=== PATIENT | male | born 1990 | race Caucasian/White ===

== ENCOUNTER 2016-03-29 21:01 | Emergency (ER) | payer OTHER ==
[~2016-03-29] VITALS: Ht 180.3 cm; Wt 104.1 kg
[~2016-03-29 21:01] MED LIST: ASPEC81 PO; LISI-461 PO; PRLSR20 PO
[2016-03-29 21:06] VITALS: Ht 180.3 cm; Wt 104.1 kg
--- NOTE | 2016-03-29 21:39 | DIAGNOSTIC IMAGING REPORT ---
LEFT KNEE 3 VIEWS CLINICAL HISTORY: Left knee pain following fall. COMPARISON: Left knee radiographs May 11, 2013. FINDINGS: There are findings consistent with an ACL reconstruction. No acute fracture is identified. A moderate size left knee joint effusion is present. Joint spaces are preserved. There is mild osteophytosis within the 3 compartments of the left knee. IMPRESSION: 1. No acute fracture. 2. Findings consistent with ACL reconstruction. 3. Moderate-sized left knee joint effusion. 4. Mild tricompartmental osteophytosis of the left knee. Electronically signed by: Santhosh Steward M.D. 03/29/2016 9:38 PM Dictated Date/Time: 03/29/2016 9:36 PM
[2016-03-29] MEDS ORDERED: ASPI81TA28 PO (21:45)
[2016-03-29] MEDS ORDERED: IBUPROFEN 600 MG TAB PO STA (21:47)
[2016-03-29 22:27] VITALS: BP 155/99; PULSE 88; TEMP 36.4; O2SAT 95
--- NOTE | 2016-03-31 00:57 | EMERGENCY ROOM VISIT NOTE ---
ED Visit Note First contact with patient: 21:12 Chief Complaint: Left knee pain. History of Present Illness: Mr. Hart is a 25-year-old white male who is brought into the ED via wheelchair accompanied by his grandparents complaining of left medial knee pain. Historically patient and grandparents reports patient had left knee surgery to repair a meniscus and a anterior cruciate ligament injury 3 years ago. Since that time he has been doing well. Patient reports yesterday afternoon, just over 24 hours ago, patient reports he was chasing his dog down a small incline. He reports he saw and fell to the ground. He reports he had a hyperflexion injury of the knee at the time of the fall. Since that time he reports she's been having increasing left knee pain and swelling predominantly over the anterior medial aspect of the knee. Currently he describes his pain as an achy sensation with occasional throbbing. He rates his discomfort 4/10. The pain is nonradiating. Her pain worsens with palpation and flexion beyond 20-30. He has not identified any alleviating factors related to the pain. He has not had any medications for pain prior to arrival at the hospital. He denies any associated symptoms including hip pain, thigh pain, lower leg pain, ankle pain, leg weakness/ numbness/tingling. Review of Systems: As noted above in history of present illness. At least body systems were reviewed and found to be negative as noted above. Past Medical History: As previously noted, congenital heart defect, hypertension , multiple heart surgeries Current Medications: Medications Dose Route/Sig Max Daily Dose Days Date Category Aspirin Ec (Aspirin) 81 Mg Tab 81 Mg PO DAILY 03/29/16 Reported Prilosec (Omeprazole) 20 Mg Capcr 20 Mg PO BID 05/11/13 Reported Zestril (Lisinopril) 10 Mg Tab 10 Mg PO DAILY 05/11/13 Reported Allergies to Medications: Grandparents and patient denied. Social History: Patient is not employed; he feels safe in his home environment; he admits to tobacco and alcohol use. Physical Examination: Vital Signs: Date Time Temp Pulse Resp B/P Pulse Ox O2 Delivery O2 Flow Rate FiO2 03/29/16 22:27 36.4 88 16 155/99 95 03/29/16 22:16 88 16 155/99 95 Room Air 03/29/16 21:06 36.4 91 16 152/101 92 Room Air GENERAL: 25-year-old male in mild distress due to pain, nontoxic-appearing, afebrile and hemodynamically stable. NEUROLOGICAL: Awake, alert and oriented to person, place and time. Answering questions appropriately and following commands. SKIN: Warm, dry and pink. No soft tissue trauma noted. LEFT LOWER EXTREMITY: No gross bony deformity. No shortening or malrotation. No tenderness over the hip, thigh, lower leg, ankle or foot. Mild tenderness over the medial joint line. Positive ballottement test. Negative patellar apprehension test. Negative bounce test. Mild laxity of the medial collateral ligament. No laxity of the cruciate ligaments or lateral collateral ligament. Minimal tenderness over the posterior knee laterally over the hamstring tendonstructures. No tenderness over the patellar tendon. Decreased range of motion to approximately 20-30 of flexion. He does have full extension. Within the knee stabilize he does have full range of motion in flexion, extension of the toes and dorsiflexion and plantar flexion of the ankles against resistance. Throughout the foot the skin was warm and pink and capillary refill is brisk. He was able to distinguish light sensations through all dermatomes of the feet. ED Course: Patient is assessed as noted above. Patient was given 600 mg of ibuprofen by mouth for pain and ice for pain and swelling. Left Knee X-Rays: Were read by myself and the radiologist and shows no acute fractures or dislocations. Moderate size left knee joint effusion. Mild tricompartmental osteophytosis and findings consistent with previous anterior cruciate ligament reconstruction. Patient was placed in a knee immobilizer and on nonweightbearing crutches. Patient and grandparents were educated about rosaura's findings and instructed on his treatment plan; they verbalizes understanding and agreement with this plan. Clinical Impression: Left medial collateral ligament strain. Joint effusion. Status post fall. Disposition: Patient discharged home in stable condition accompanied by his grandparents; prior to departure he was reassessed and subjectively reported he was feeling better and rated his discomfort 4/10. Plan: Comfort measures were discussed with the patient including rest, ice, elevation and alternating ibuprofen and acetaminophen as needed for pain. Patient was encouraged to use the knee immobilizer and nonweightbearing crutches for 3-6 days or until pain free. Patient was encouraged to follow-up with digital specialist if no better in 6 -7 days. Patient was encouraged return the ED for worsening/uncontrolled pain, uncontrolled swelling or any new/concerning symptoms.
== END 2016-03-29 22:28 | disposition home or self-care (01) ==
LOC: C.EDB 21:04 → C.EDD 22:28
DX: S83.412A Sprain of medial collateral ligament of left knee, initial encounter (principal); M25.462 Effusion, left knee; W19.XXXA Unspecified fall, initial encounter; I10 Essential (primary) hypertension; Z79.82 Long term (current) use of aspirin

== ENCOUNTER 2016-07-28 14:29 | Emergency (ER) | payer OTHER ==
[~2016-07-28] VITALS: Ht 180.3 cm; Wt 103.0 kg
[~2016-07-28 14:29] MED LIST changes: -ASPEC81 PO; +ASPI81TA28 PO
[2016-07-28 14:32] VITALS: TEMP 36.7; Ht 180.3 cm; Wt 103.0 kg
--- NOTE | 2016-07-28 14:52 | DIAGNOSTIC IMAGING REPORT ---
LEFT ANKLE MIN 3 VIEWS ROUTINE CLINICAL HISTORY: L ankle pain trauma COMPARISON: None. DISCUSSION: Considerable soft tissue edema over the lateral to lesser extent medial aspect of the ankle. Small bony avulsion from the anterior calcaneus. The ankle mortise is aligned anatomically. IMPRESSION: Small bony avulsion from the anterolateral calcaneus. Soft tissue edema. Electronically signed by: Castro Armendariz M.D. 07/28/2016 2:50 PM Dictated Date/Time: 07/28/2016 2:49 PM
[2016-07-28 15:25] VITALS: BP 130/81; PULSE 84; O2SAT 99
--- NOTE | 2016-07-28 16:30 | EMERGENCY ROOM VISIT NOTE ---
ED Visit Note First contact with patient: 14:32 Chief Complaint: Left ankle pain. History of Present Illness: Mr. Valencia is a 25-year-old white male who ambulates into the ED walking on his left toes complaining of left lateral ankle pain. Patient reports yesterday, approximately 26 hours ago, he was taking garbage out the trash and twisted and injured his left ankle. From his description this appears to be an inversion injury. He reports at the time of the injury he felt a popping sensation. Since the injury he has been having pain and he has noted increased swelling and ecchymosis over the lateral aspect of the left ankle. He describes the pain as a sharp sensation. He rates his discomfort 8/ 10. The pain is nonradiating. Pain worsens with all movements of the ankle, heel toe ambulation and palpation. He has not identified any alleviating factors related to the pain. He reports he took 1000 mg of ibuprofen prior to arrival at the hospital without relief of his discomfort. Associated with his pain he reports he has a tingling sensation in his toes and his girlfriend reports his toes were blue this morning but that has resolved. He denies any associated hip pain, knee pain, lower leg pain, medial ankle pain , foot pain, foot weakness. Additionally he denies any previous significant injuries or surgeries to the left ankle or foot. Review of Systems: As noted above in history of present illness. Past Medical History: Congenital heart defect with open-heart surgeries, unspecified knee surgery. Current Medications: Lisinopril, Prilosec, aspirin. Allergies to Medications: Patient denies. Social History: Patient is currently employed; he feels safe in his home environment; he admits to tobacco and alcohol use. Physical Examination: Vital Signs: Date Time Temp Pulse Resp B/P (MAP) Pulse Ox O2 Delivery O2 Flow Rate FiO2 07/28/16 15:25 84 18 130/81 99 Room Air 07/28/16 14:32 36.7 74 18 134/84 94 Room Air GENERAL: 25-year-old male in mild distress due to pain, nontoxic-appearing, afebrile and hemodynamically stable. NEUROLOGICAL: Awake, alert and oriented to person, place and time. Answering questions appropriately and following commands. SKIN: Warm, dry and pink. No soft tissue trauma noted. LEFT LOWER EXTREMITY: No gross bony deformity. No tenderness in the hip, knee or lower leg. Moderate tenderness diffusely throughout the lateral aspect of the ankle overall ligamentous structures and bony structures. Additionally in this area there is ecchymosis and swelling down to the calcaneus. Because of his level of discomfort I was not able to stress the ligamentous structures. I did not appreciate any bony deformity or crepitus. Throughout the feet the skin was warm and pink and capillary refill is brisk. With pain he was able to dorsiflex and plantarflex the ankle. Without pain he was able to flex and extend all toes. ED Course: Patient is assessed as noted above. Left Ankle X-Rays: Were read by myself and the radiologist showing a small bony avulsion from the anterior lateral calcaneus with moderate swelling. Ankle mortise joint was intact. Patient's medical records, past medical history, medications and allergies were reviewed by myself. Patient was warned about using too much ibuprofen. Patient was placed in a gel splint and on nonweightbearing crutches. Patient was encouraged to follow-up with [facility] for follow-up care and treatment. Patient was educated about today's findings and instructed on his treatment plan ; he verbalizes understanding and agreement with this plan. Clinical Impression: Avulsion fracture left calcaneus. Decision-Making: Initially my differential diagnosis I considered fracture, strain, sprain, contusion and other causes. Disposition: Patient discharged home in stable condition accompanied by his girlfriend; prior to departure he was reassessed and subjectively reported he was feeling the same. Plan: Comfort measures including rest, ice, elevation, splint and crutch use and ibuprofen and Tylenol were discussed with the patient. Patient reports he was a patient with [facility]; he was encouraged to follow-up for evaluation. Patient was signed off work for 7 days and orthopedic follow-up. Patient was encouraged return the ED for worsening/uncontrolled pain, uncontrolled swelling, foot weakness/numbness/tingling or any new/concerning symptoms.
== END 2016-07-28 15:31 | disposition home or self-care (01) ==
LOC: C.EDB 14:30 → C.EDD 15:31
DX: S92.022A Displaced fracture of anterior process of left calcaneus, initial encounter for closed fracture (principal); X50.1XXA Overexertion from prolonged static or awkward postures, initial encounter; Y93.89 Activity, other specified; Y99.8 Other external cause status; Z72.0 Tobacco use; Z98.890 Other specified postprocedural states; Z79.82 Long term (current) use of aspirin

== ENCOUNTER → 2016-11-27 | Outpatient (CLI) | payer OTHER ==
--- NOTE | 2016-11-27 18:41 | DIAGNOSTIC IMAGING REPORT ---
LEFT KNEE 3 VIEWS CLINICAL HISTORY: Left knee pain. No reported history of trauma. FINDINGS: AP, crosstable lateral, and sunrise views of the left knee are compared to study dated 03/29/2016. The skeletal structures appear osteopenic. No fracture is seen. Postoperative changes are consistent with previous ACL repair. There is mild and age advanced tricompartmental degenerative joint space narrowing. There are marginal osteophytes and patellar enthesophytes. A small joint effusion is identified. Prepatellar soft tissue swelling is observed. IMPRESSION: 1. Joint effusion and soft tissue swelling. No acute bony abnormality is identified. 2. Osteopenia, age advanced arthritic change, and postoperative change from ACL repair as above. Electronically signed by: Tong Godinez M.D. 11/27/2016 6:39 PM Dictated Date/Time: 11/27/2016 6:38 PM
== END | disposition home or self-care (01) ==
LOC: C.RAD 18:14
PROVIDERS: ATTEND Physician Assistant Medical
DX: M25.562 Pain in left knee (principal); M25.462 Effusion, left knee; M79.89 Other specified soft tissue disorders; M85.862 Other specified disorders of bone density and structure, left lower leg; Z98.890 Other specified postprocedural states

== ENCOUNTER 2024-09-01 00:44 | Inpatient (IN) ==
[2024-09-01 02:39] LABS: Alanine Aminotransferase 14.0 U/L (7-52); Albumin Globulin Ratio 1.3 (0.9-2); Alkaline Phosphatase 84.0 U/L (34-104); Anion Gap 9.0 (3-11); Bilirubin,Total 2.5 mg/dl (0.2-1.0); Blood Urea Nitrogen 51.0 mg/dl (6-23); Calcium 9.2 mg/dl (8.6-10.3); Carbon Dioxide 20.0 mmol/L (21-32); Chloride 104.0 mmol/L (98-107); Creatinine Clr Calc Pharmacy 63.8 ml/min; Globulin 3.2 gm/dl (2.5-4.0); Glucose 115.0 mg/dl (70-99(Fasting)); Magnesium 2.3 mg/dl (1.7-2.4); Potassium 5.2 mmol/L (3.5-5.1); Sodium 133.0 mmol/L (136-145); Total Protein 7.3 gm/dl (6.0-8.3)
[2024-09-01] MEDS: SODIUM CHLORIDE 0.9% 500 ML IV ONE ×2 (02:39→03:07)
--- NOTE | 2024-09-01 02:47 | XRay Report ---
EXAM: XR knee LT 1 or 2V routine CLINICAL HISTORY: trauma. TECHNIQUE: X-ray images of the left knee were obtained in anteroposterior (AP) and lateral projections. COMPARISON: 03/29/2016 and 11/27/2016. FINDINGS: Bone Structure: Bone alignment is preserved. No acute fractures or dislocations identified. Radiolucent areas with surrounding sclerosis are noted in the distal femur and proximal tibia, likely post-intervention changes related to prior orthopedic hardware placement. A metallic foreign body is seen in the lateral aspect of the distal femur, stable in appearance. Correlation with surgical history is recommended. Joint Spaces: Mild joint space narrowing is observed in both the medial and lateral compartments, suggestive of early degenerative changes. Articular Surfaces: Few small marginal osteophytes are noted, with tibial plateau spiking present. Articular surfaces show early signs of degeneration but remain largely preserved. Patella: The patella is normally aligned. Patellar osteophytes are present, indicating early patellofemoral joint degeneration. Soft Tissues: Mild subcutaneous soft tissue edema is noted, predominantly in the anterior aspect. No soft tissue calcifications or foreign bodies apart from the aforementioned metallic object. Additional Findings: Suggestion of mild joint effusion is present. IMPRESSION: 1. No acute fractures or dislocations. 2. Mild joint effusion and anterior soft tissue edema. New findings. 3. Early degenerative changes of knee joint. Unchanged. 4. Stable likely post-surgical radiolucent areas with surrounding sclerosis in the distal femur and proximal tibia, and an unchanged metallic foreign body in the lateral distal femur; correlate with prior surgical history. Disclaimer: A subtle bone abnormality or fracture may not be readily apparent on X-rays, thus clinical correlation and further imaging including follow-up CT, MRI, or follow-up X-rays are advised as needed. Electronically signed by Paul Greenwood 09-01-2024 02:47 AM
[2024-09-01 02:54] LABS: Thyroid Stimulating Hormone 7.78 uIu/ml (0.300-4.500)
--- NOTE | 2024-09-01 03:07 | Emergency Department Note ---
Impression & Plan Laceration of knee, left, Atrial fibrillation with rapid ventricular response, Fall, Abrasion of right shoulder ED Provider Note ED Provider Note NAME: CHRISTEN RODRIGEZ AGE:34 SEX: Male : 1990 ARRIVES VIA: private vehicle INFORMANT: Patient ED PROVIDER(s): Stephanie Ge DO CHIEF COMPLAINT: left knee laceration HPI: This is a 34-year-old male presents emerged part due to concern for a left knee laceration after he accidentally tripped and fell going up the steps. He stated his knee struck the edge of the step. He states he otherwise was not injured and was able to get up with assistance. He had a large amount of bleeding which family tried to place a dressing on. Patient states he does take anticoagulation medication due to history of heart problems. Family at bedside states he does have atrial fibrillation. In triage patient noted to have tachycardia as well as hypoxia. EKG was performed and did show A-fib with RVR. Patient states he has had this previously but does not know if he is on it chronically or intermittently and states he cannot tell if he is in it or not. He denies any chest pain, palpitations, shortness of breath, or cough. He states he is taking all of his medications as prescribed, denies any recent medication changes. Family states he has previously needed his heart shocked due to an abnormal rhythm, the last episode of this was 1 month ago and felt to be related to significant alcohol intoxication. Patient denies any alcohol ingestion since that time. 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 Patient follows with cardiology down in [place]. PAST MEDICAL HISTORY:See Below PAST SURGICAL HISTORY:See Below FAMILY HISTORY:See Below SOCIAL HISTORY:See Below HOME MEDICATIONS:See Below ALLERGIES:See Below VITALS:See Below PHYSICAL EXAMINATION: GENERAL: alert, unwell appearing, well nourished, no distress, non-toxic, BMI 36 EYE EXAM: normal conjunctiva, PERRL and EOM's grossly intact OROPHARYNX: no exudate, no erythema, lips, buccal mucosa, and tongue normal and mucous membranes are moist NECK: supple, no nuchal rigidity, no adenopathy, non-tender LUNGS: Clear to auscultation. Normal chest wall mechanics, no w/r/r HEART: no murmurs, S1 normal and S2 normal ABDOMEN: abdomen soft, non-tender, normo-active bowel sounds, no masses, no rebound or guarding. SKIN: no rashes, petechiae, orbruising; bronze skin appearance which family states is normal for him UPPER EXTREMITIES: upper extremities are grossly normal. FROM, nml pulses b/l. LOWER EXTREMITIES: No pitting edema. FROM, nml pulses b/l. NEURO EXAM: Normal sensorium, cranial nerves II-XII grossly intact, normal speech, no facial droop,nogross weakness of arms, no gross weakness of legs. Gross sensation intact. No ataxia. Vital Signs: reviewed and remarkable Differential Diagnosis: laceration, fracture, ligamentous injury, septic arthritis MEDICAL DECISION MAKING: THis is a 34 yo male with complicated PMHx who present tonight with concern for a fall going up the steps striking his left knee. Family concerned by amount of bleeding as patient is anticoagulated due to cardiac hx. He was noted to be tachycardic and hypoxic on arrival and was immediately placed in a patient room. Labs drawn and sent, IV established, EKG and xrays performed and interpreted at bedside, and patient placed on telemetry. Patient and initial family with difficulty recalling history, roxana cardiac. While awaiting the arrival of patient's mother we did attempt to find records in [facility] with help from case mgmt. Patient denied pain accept if area of left knee injury manipulated and he remained in a rapid a.fib with borderline BP. He denied palpitations, chest pain, or dyspnea. He had already been placed on oxygen via NC but nursing staff with improvement. INitial knee xrays negative, however given patient's body habitus, appearance of the injury and concern for occult fracture or joint involvement he was sent for CT knee. Patient's mother eventually arrived and was able to provide additional hx. Patient with prior similar episodes requiring cardioversion but previously were secondary to etoh use. Patient denies any recent etoh use and mother confirms stating he has been home and lives with her. Labs noted GENA and borderline hyperkalemia. Mother suspect decreased water intake. She confirms he is taking all his meds as prescribed. Last oral intake today was 2 pm. I had a lengthy discussion with peds cards at [facility] who manage him. Following this I discussed their recommendation to cardiovert out of a.fib with the patient and with his mother. The both verbalized understanding and were in agreement. Patient sedated by me and cardioversion performed with assistance from Margaret Bolton PA-C. During sedation preparations, abrasion noted to right posterior shoulder. Patient then admitted when he fell up the steps, he then turned and slid back down following the knee injury. Patient then in NSR. His oxygen was able to be titrated down. He was sent for additional CT imaging given additional exam findings and further explanation regarding the fall. He had received cautious IVF given the GENA and concern for dehydration. Following his recovery from the procedure, I began to prep the wound for repair. Area anesthetized using lido with epi with good success and area copious irrigated. Unfortunately I then had to leave the room to attend to a more critical patient. Wound repaired at bedside by Betty Torrez NP. Case discussed via tiger text with [facility] Patient and mother updated on plan and were in agreement. Consultation(s): 0420: Extensive discussion with Dr. Kendall, cardiology at [facility] approx 45 long. Recommends cardioversion and 24 hr observation. 0558: DIscussed with Dr. Jurado via Aspers Text. 0632: [facility] for additional evaluation and mgmt. ER Treatment Provided: See below Diagnostics Interpreted By Me: -ECG: A-fib at a rate of 161, leftward axis, normal intervals, nonspecific ST/T wave changes -Cardiac Monitoring: An order was placed for continuous cardiac monitoring. The monitor shows a rate of 166 with a.fib rhythm. -Laboratory studies: As stated above and show below. -Imaging studies: X-ray Chest: A single view study of the chest was reviewed and was negative for cardiomegaly, focal infiltrate, effusion, pulmonary edema, or wide mediastinum. xr knee: no fx/dislocation CT head: no ICH Triage Nursing Note Reviewed Prior/Outside Records Reviewed -cardiology office visit from April 14, 2024 reviewed Procedures: Procedural Sedation Indication cardioversion. Total time: 17 minutes. Written consent was obtained after the risks and benefits were explained to the patient and mother, including, but not limited to aspiration, allergic reaction, breathing difficulties, cardiac complications, vomiting, pain, event recall, bleeding, and/or infection. Pre-sedation examination and paperwork completed. The patient was on 100% oxygen via NRB prior to the procedure. Continous end tidal CO2 monitoring, pulse oximetry, and cardiac monitoring were utilized. Suction, airway equipment, medications, respiratory equipment, and appropriate personnel were prepared prior to the initiation of the procedure. A time out was taken. Sedation was achieved utilizing 17 mg of etomidate. After I observed the patient had reached the appropriate level of sedation the main procedure was performed without complication. Sedation was discontinued and the monitoring continued. The patient recovered quickly from the effects of the medication without complication or adverse event. Critical Care: Critical care of 60 min performed to assess and manage high likelihood of life-threatening dysrhythmia, involving labs and imaging performed with assessment to evaluate tachycardia diagnosis with frequent reassessment. This time includes bedside time, treatment discussions with patient/family/consultants, documentation time and excludes procedure time. Past Med/Surg History Problem List (Updated 09/02/24 @ 21:12 by Stephanie Ge DO) Abrasion of right shoulder (Acute) Fall (Acute) Fall GENA (acute kidney injury) Status post Fontan procedure Congenital heart disease Atrial fibrillation with rapid ventricular response (Acute) Rapid atrial fibrillation Laceration of knee, left (Acute) Foot pain, right (Acute) Right ankle sprain (Acute) Right ankle sprain (Acute) Left knee injury (Acute) Tricuspid atresia Left knee injury (Acute) Cellulitis Social History Smoking Status: Current every day smoker Tobacco Type: Smokeless Tobacco (Dip or Chew) Hx Alcohol Use: No Hx Substance Use: No Preferred Language: Turkish [employer] Required: No Beliefs That Will Affect Care: None Current Living Situation: Parent Other Information That Helps Us Care for You: No Feels Safe at Home: Yes Safety Concerns: Feels Safe At This Time Assistive Devices: None Allergies Allergies Allergy/AdvReac Type Severity Reaction Status Date / Time acetaminophen AdvReac Unknown AVOIDS D/T Verified 09/01/24 02:23 CIRRHOSIS OF LIVER Home Meds Home Medications Medication Instructions Recorded Confirmed apixaban 5 mg tablet (Eliquis) 5 mg PO BID 09/01/24 09/01/24 betamethasone dipropionate 0.05 % 1 applic topical DIRECTED 09/01/24 09/01/24 topical cream carvedilol 6.25 mg tablet 6.25 mg PO BID 09/01/24 09/01/24 furosemide 40 mg tablet 40 mg PO DAILY 09/01/24 09/01/24 lisinopril 20 mg tablet 20 mg PO DAILY 09/01/24 09/01/24 montelukast 10 mg tablet 10 mg PO DAILY 09/01/24 09/01/24 omeprazole 20 mg capsule,delayed 20 mg PO BID 09/01/24 09/01/24 release sertraline 100 mg tablet 100 mg PO DAILY 09/01/24 09/01/24 trazodone 50 mg tablet 50 mg PO HS 09/01/24 09/01/24 Results & Data (ED) Vital Signs Vital Signs - 24 hr 09/01/24 00:50 09/01/24 01:02 09/01/24 01:03 Temperature 35.9 C L Temperature Source Temporal Artery Scan Pulse Rate 154 H 168 H 148 H Pulse Rate [Apical] Pulse Rate from SpO2 Sensor Pulse Rhythm Regular Pulse Rhythm [Apical] Pulse Strength Normal Pulse Strength [Apical] Respiratory Rate 16 24 Respiratory Effort / Characteristics Non-Labored Spontaneous Respiratory Depth Normal Respiratory Pattern Regular Blood Pressure 106/72 109/85 Blood Pressure [Left Arm] Blood Pressure Mean 83 96 Blood Pressure Mean [Left Arm] Blood Pressure Position Lying Blood Pressure Position [Left Arm] Pulse Oximetry 85 L 90 Oxygen Delivery Method Room Air Nasal Cannula Oxygen Flow Rate 4 Sepsis New/Unexplained Change in Mental Status No Sepsis Action Taken by Nursing No Action Required End Tidal CO2 (18-54mmHg) 09/01/24 01:30 09/01/24 02:00 09/01/24 02:43 Temperature Temperature Source Pulse Rate 164 H 160 H 160 H Pulse Rate [Apical] Pulse Rate from SpO2 Sensor 158 H Pulse Rhythm Pulse Rhythm [Apical] Pulse Strength Pulse Strength [Apical] Respiratory Rate 30 H 20 20 Respiratory Effort / Characteristics Respiratory Depth Respiratory Pattern Blood Pressure 100/70 103/79 90/73 L Blood Pressure [Left Arm] Blood Pressure Mean 80 96 81 Blood Pressure Mean [Left Arm] Blood Pressure Position Blood Pressure Position [Left Arm] Pulse Oximetry 90 91 91 Oxygen Delivery Method Nasal Cannula Nasal Cannula Oxygen Flow Rate 4 4 Sepsis New/Unexplained Change in Mental Status Sepsis Action Taken by Nursing End Tidal CO2 (18-54mmHg) 09/01/24 02:55 09/01/24 03:00 09/01/24 03:17 Temperature Temperature Source Pulse Rate 156 H 164 H Pulse Rate [Apical] 160 H Pulse Rate from SpO2 Sensor Pulse Rhythm Pulse Rhythm [Apical] Irregular Pulse Strength Pulse Strength [Apical] Normal Respiratory Rate 20 20 20 Respiratory Effort / Characteristics Non-Labored Spontaneous Respiratory Depth Normal Respiratory Pattern Regular Blood Pressure 97/70 L 89/69 L Blood Pressure [Left Arm] 92/66 L Blood Pressure Mean 79 85 Blood Pressure Mean [Left Arm] 74 Blood Pressure Position Blood Pressure Position [Left Arm] Pulse Oximetry 94 93 93 Oxygen Delivery Method Nasal Cannula Nasal Cannula Room Air Oxygen Flow Rate 4 4 Sepsis New/Unexplained Change in Mental Status Sepsis Action Taken by Nursing End Tidal CO2 (18-54mmHg) 09/01/24 03:17 09/01/24 03:25 09/01/24 03:30 Temperature Temperature Source Pulse Rate 152 H 156 H 162 H Pulse Rate [Apical] Pulse Rate from SpO2 Sensor Pulse Rhythm Pulse Rhythm [Apical] Pulse Strength Pulse Strength [Apical] Respiratory Rate 19 19 20 Respiratory Effort / Characteristics Respiratory Depth Respiratory Pattern Blood Pressure 92/66 L 106/68 94/66 L Blood Pressure [Left Arm] Blood Pressure Mean 77 72 83 Blood Pressure Mean [Left Arm] Blood Pressure Position Blood Pressure Position [Left Arm] Pulse Oximetry 92 93 93 Oxygen Delivery Method Nasal Cannula Nasal Cannula Nasal Cannula Oxygen Flow Rate 4 4 4 Sepsis New/Unexplained Change in Mental Status Sepsis Action Taken by Nursing End Tidal CO2 (18-54mmHg) 09/01/24 03:40 09/01/24 03:51 09/01/24 04:00 Temperature Temperature Source Pulse Rate 151 H Pulse Rate [Apical] 160 H 158 H Pulse Rate from SpO2 Sensor Pulse Rhythm Pulse Rhythm [Apical] Irregular Irregular Pulse Strength Pulse Strength [Apical] Normal Normal Respiratory Rate 22 21 18 Respiratory Effort / Characteristics Non-Labored Spontaneous Non-Labored Spontaneous Respiratory Depth Normal Normal Respiratory Pattern Regular Regular Blood Pressure 89/69 L Blood Pressure [Left Arm] 84/65 L 84/66 L Blood Pressure Mean 72 Blood Pressure Mean [Left Arm] 71 72 Blood Pressure Position Blood Pressure Position [Left Arm] Lying Pulse Oximetry 93 93 93 Oxygen Delivery Method Nasal Cannula Nasal Cannula Room Air Oxygen Flow Rate 4 4 Sepsis New/Unexplained Change in Mental Status Sepsis Action Taken by Nursing End Tidal CO2 (18-54mmHg) 09/01/24 04:11 09/01/24 04:20 09/01/24 04:40 Temperature Temperature Source Pulse Rate Pulse Rate [Apical] 151 H 159 H 168 H Pulse Rate from SpO2 Sensor Pulse Rhythm Pulse Rhythm [Apical] Irregular Irregular Irregular Pulse Strength Pulse Strength [Apical] Normal Normal Normal Respiratory Rate 21 18 22 Respiratory Effort / Characteristics Non-Labored Spontaneous Non-Labored Spontaneous Non-Labored Spontaneous Respiratory Depth Normal Normal Normal Respiratory Pattern Regular Regular Regular Blood Pressure Blood Pressure [Left Arm] 89/66 L 92/68 L 91/68 L Blood Pressure Mean Blood Pressure Mean [Left Arm] 73 76 75 Blood Pressure Position Blood Pressure Position [Left Arm] Pulse Oximetry 92 91 94 Oxygen Delivery Method Nasal Cannula Nasal Cannula Nasal Cannula Oxygen Flow Rate 4 4 4 Sepsis New/Unexplained Change in Mental Status Sepsis Action Taken by Nursing End Tidal CO2 (18-54mmHg) 09/01/24 04:50 09/01/24 05:00 09/01/24 05:03 Temperature Temperature Source Pulse Rate 152 H 164 H 150 H Pulse Rate [Apical] Pulse Rate from SpO2 Sensor Pulse Rhythm Pulse Rhythm [Apical] Pulse Strength Pulse Strength [Apical] Respiratory Rate 20 18 Respiratory Effort / Characteristics Respiratory Depth Respiratory Pattern Blood Pressure 116/87 95/73 L Blood Pressure [Left Arm] Blood Pressure Mean 88 80 Blood Pressure Mean [Left Arm] Blood Pressure Position Blood Pressure Position [Left Arm] Pulse Oximetry 93 94 Oxygen Delivery Method Nasal Cannula Nasal Cannula Oxygen Flow Rate 4 4 Sepsis New/Unexplained Change in Mental Status Sepsis Action Taken by Nursing End Tidal CO2 (18-54mmHg) 09/01/24 05:18 09/01/24 05:25 09/01/24 05:30 Temperature Temperature Source Pulse Rate 140 H 167 H Pulse Rate [Apical] Pulse Rate from SpO2 Sensor Pulse Rhythm Pulse Rhythm [Apical] Pulse Strength Pulse Strength [Apical] Respiratory Rate 18 16 Respiratory Effort / Characteristics Respiratory Depth Respiratory Pattern Blood Pressure Blood Pressure [Left Arm] 110/70 98/78 L Blood Pressure Mean Blood Pressure Mean [Left Arm] Blood Pressure Position Blood Pressure Position [Left Arm] Pulse Oximetry 95 98 96 Oxygen Delivery Method Non-rebreather Non-rebreather Non-rebreather Oxygen Flow Rate 15 15 15 Sepsis New/Unexplained Change in Mental Status Sepsis Action Taken by Nursing End Tidal CO2 (18-54mmHg) 29 28 09/01/24 05:32 09/01/24 05:35 09/01/24 05:40 Temperature Temperature Source Pulse Rate 67 72 74 Pulse Rate [Apical] Pulse Rate from SpO2 Sensor Pulse Rhythm Pulse Rhythm [Apical] Pulse Strength Pulse Strength [Apical] Respiratory Rate 16 20 Respiratory Effort / Characteristics Respiratory Depth Respiratory Pattern Blood Pressure Blood Pressure [Left Arm] 94/75 L 106/58 L Blood Pressure Mean Blood Pressure Mean [Left Arm] Blood Pressure Position Blood Pressure Position [Left Arm] Pulse Oximetry 95 95 Oxygen Delivery Method Non-rebreather Non-rebreather Oxygen Flow Rate 15 15 Sepsis New/Unexplained Change in Mental Status Sepsis Action Taken by Nursing End Tidal CO2 (18-54mmHg) 27 25 09/01/24 05:45 09/01/24 05:50 09/01/24 05:55 Temperature Temperature Source Pulse Rate 83 85 90 Pulse Rate [Apical] Pulse Rate from SpO2 Sensor Pulse Rhythm Pulse Rhythm [Apical] Pulse Strength Pulse Strength [Apical] Respiratory Rate 20 20 20 Respiratory Effort / Characteristics Respiratory Depth Respiratory Pattern Blood Pressure Blood Pressure [Left Arm] 101/65 99/65 L 96/70 L Blood Pressure Mean Blood Pressure Mean [Left Arm] Blood Pressure Position Blood Pressure Position [Left Arm] Pulse Oximetry 96 98 95 Oxygen Delivery Method Non-rebreather Nasal Cannula Nasal Cannula Oxygen Flow Rate 15 4 4 Sepsis New/Unexplained Change in Mental Status Sepsis Action Taken by Nursing End Tidal CO2 (18-54mmHg) 27 29 29 09/01/24 06:00 09/01/24 06:04 09/01/24 06:30 Temperature Temperature Source Pulse Rate 89 95 H 92 H Pulse Rate [Apical] Pulse Rate from SpO2 Sensor 88 Pulse Rhythm Pulse Rhythm [Apical] Pulse Strength Pulse Strength [Apical] Respiratory Rate 18 18 20 Respiratory Effort / Characteristics Respiratory Depth Respiratory Pattern Blood Pressure 95/60 L 99/71 L 95/68 L Blood Pressure [Left Arm] Blood Pressure Mean 71 75 73 Blood Pressure Mean [Left Arm] Blood Pressure Position Blood Pressure Position [Left Arm] Pulse Oximetry 94 94 95 Oxygen Delivery Method Nasal Cannula Room Air Oxygen Flow Rate 4 4 Sepsis New/Unexplained Change in Mental Status Sepsis Action Taken by Nursing End Tidal CO2 (18-54mmHg) 09/01/24 06:45 09/01/24 06:48 09/01/24 06:51 Temperature Temperature Source Pulse Rate 93 H 100 H Pulse Rate [Apical] Pulse Rate from SpO2 Sensor 95 H 96 H Pulse Rhythm Pulse Rhythm [Apical] Pulse Strength Pulse Strength [Apical] Respiratory Rate Respiratory Effort / Characteristics Respiratory Depth Respiratory Pattern Blood Pressure 86/67 L Blood Pressure [Left Arm] Blood Pressure Mean 73 Blood Pressure Mean [Left Arm] Blood Pressure Position Blood Pressure Position [Left Arm] Pulse Oximetry 95 Oxygen Delivery Method Nasal Cannula Oxygen Flow Rate 4 Sepsis New/Unexplained Change in Mental Status Sepsis Action Taken by Nursing End Tidal CO2 (18-54mmHg) 09/01/24 06:53 09/01/24 06:59 09/01/24 07:00 Temperature Temperature Source Pulse Rate Pulse Rate [Apical] Pulse Rate from SpO2 Sensor Pulse Rhythm Pulse Rhythm [Apical] Pulse Strength Pulse Strength [Apical] Respiratory Rate Respiratory Effort / Characteristics Respiratory Depth Respiratory Pattern Blood Pressure 88/65 L 100/72 103/74 Blood Pressure [Left Arm] Blood Pressure Mean 76 82 79 Blood Pressure Mean [Left Arm] Blood Pressure Position Blood Pressure Position [Left Arm] Pulse Oximetry Oxygen Delivery Method Oxygen Flow Rate Sepsis New/Unexplained Change in Mental Status Sepsis Action Taken by Nursing End Tidal CO2 (18-54mmHg) Laboratory Data 09/02/24 05:27 09/02/24 10:58 Lab Results 09/01/24 Range/Units 01:10 WBC 5.90 (4.8-10.8) K/ul RBC 4.47 L (4.70-6.10) M/uL Hgb 14.4 (14.0-18.0) g/dl Hct 44.2 (42.0-52.0) % MCV 98.9 (80.0-100.0) fL MCH 32.2 (25.0-34.0) pg MCHC 32.6 (32.0-36.0) g/dL RDW Std Deviation 54.9 H (36.4-46.3) fL RDW Coeff of Mary 15.1 H (11.5-14.5) % Plt Count 89 L (130-400) K/uL MPV 14.9 H (9.4-12.4) fL Immature Gran % (Auto) 0.3 % Neut % (Auto) 67.0 % Lymph % (Auto) 17.3 % [facility] [place] [facility] % (Auto) 11.5 % Eos % (Auto) 3.4 % Baso % (Auto) 0.5 % Neut # (Auto) 3.95 (1.40-6.50) K/uL Lymph # (Auto) 1.02 L (1.20-3.40) K/uL [facility] # (Auto) 0.68 H (0.11-0.59) K/uL Eos # (Auto) 0.20 (0.00-0.50) K/uL Baso # (Auto) 0.03 (0.00-0.20) K/uL Immature Gran # (Auto) 0.02 (0.01-0.20) K/uL Platelet Estimate Decreased L (Normal) Echinocytes 1+ PT 12.5 H (9.0-12.0) Seconds INR 1.2 H (0.9-1.1) Sodium 133 L (136-145) mmol/L Potassium 5.2 H (3.5-5.1) mmol/L Chloride 104 (98-107) mmol/L Carbon Dioxide 20 L (21-32) mmol/L Anion Gap 9 (3-11) BUN 51 H (6-23) mg/dl Creatinine 2.12 H (0.6-1.4) mg/dl Est Cr Clr Drug Dosing 63.8 ml/min eGFR 40.85 BUN/Creatinine Ratio 24.1 H (10-20) Glucose 115 H (70-99(Fasting)) mg/dl Calcium 9.2 (8.6-10.3) mg/dl Magnesium 2.3 (1.7-2.4) mg/dl Total Bilirubin 2.5 H (0.2-1.0) mg/dl AST 22 (13-39) U/L ALT 14 (7-52) U/L Alkaline Phosphatase 84 (34-104) U/L Total Protein 7.3 (6.0-8.3) gm/dl Albumin 4.1 (3.4-5.0) gm/dl Globulin 3.2 (2.5-4.0) gm/dl Albumin/Globulin Ratio 1.3 (0.9-2) TSH 7.780 H (0.300-4.500) uIu/ml Free T4 1.22 (0.61-1.60) ng/dl Administered Medications Apixaban (Apixaban 5 Mg Tablet) 5 mg PO BID BORIS Stop: 10/01/24 08:59 Last Admin: 09/02/24 20:07 Dose: 5 mg Documented By: Admin: 09/02/24 08:34 Dose: 5 mg Documented By: Admin: 09/01/24 21:11 Dose: 5 mg Documented By: Admin: 09/01/24 09:51 Dose: 5 mg Documented By: TORRES Ceftriaxone Sodium (Rocephin) 2,000 mg in 50 mls @ 100 mls/hr IV Q24H BORIS Stop: 09/09/24 08:59 Last Infusion: 09/02/24 09:20 Dose: Infused Documented By: Admin: 09/02/24 08:34 Dose: 100 mls/hr Documented By: TORRES Metoprolol Succinate (Metoprolol Succ 25mg Ext Rel Tab) 25 mg PO BID BORIS Stop: 10/01/24 20:59 Last Admin: 09/02/24 20:09 Dose: Not Given Documented By: Admin: 09/02/24 08:04 Dose: Not Given Documented By: Admin: 09/01/24 21:11 Dose: 25 mg Documented By: ZAIN Montelukast Sodium (Montelukast Sodium 10 Mg Tablet) 10 mg PO DAILY BORIS Stop: 10/01/24 08:59 Last Admin: 09/02/24 08:34 Dose: 10 mg Documented By: Admin: 09/01/24 09:51 Dose: 10 mg Documented By: TORRES Oxycodone HCl (Oxycodone Hcl Ir 5 Mg Tab (Immediate Release)) 5 mg PO Q6H PRN PRN Reason: Pain Stop: 09/16/24 11:11 Last Admin: 09/02/24 20:06 Dose: 5 mg Documented By: Admin: 09/02/24 14:00 Dose: 5 mg Documented By: OTRRES Pantoprazole Sodium (Pantoprazole 40 Mg Tab) 40 mg PO BID BORIS Stop: 10/01/24 08:59 Last Admin: 09/02/24 20:06 Dose: 40 mg Documented By: Admin: 09/02/24 08:34 Dose: 40 mg Documented By: Admin: 09/01/24 21:11 Dose: 40 mg Documented By: Admin: 09/01/24 09:51 Dose: 40 mg Documented By: TORRES Sertraline HCl (Sertraline Hcl 100 Mg Tablet) 100 mg PO DAILY BORIS Stop: 10/01/24 08:59 Last Admin: 09/02/24 08:34 Dose: 100 mg Documented By: Admin: 09/01/24 09:51 Dose: 100 mg Documented By: TORRES Trazodone HCl (Trazodone Hcl 50 Mg Tab) 50 mg PO HS BORIS Stop: 10/01/24 20:59 Last Admin: 09/02/24 20:07 Dose: 50 mg Documented By: Admin: 09/01/24 21:11 Dose: 50 mg Documented By: ZAIN Discontinued Medications Carvedilol (Carvedilol 6.25 Mg Tab) 6.25 mg PO BID BORIS Stop: 10/01/24 08:59 Last Admin: 09/01/24 09:51 Dose: 6.25 mg Documented By: TORRES Etomidate (Etomidate 2 Mg/Ml 20 Ml Vial) 17 mg IV NOW ONE Stop: 09/01/24 05:18 Last Admin: 09/01/24 05:27 Dose: 17 mg Documented By: SALINA Furosemide (Furosemide 40 Mg/4 Ml Vial) 40 mg IV ONE ONE Stop: 09/01/24 15:08 Last Admin: 09/01/24 17:00 Dose: 40 mg Documented By: TORRES Sodium Chloride (Nss) 500 mls @ 999 mls/hr IV .Q31M ONE Stop: 09/01/24 02:38 Last Infusion: 09/01/24 03:14 Dose: Infused Documented By: Admin: 09/01/24 02:39 Dose: 999 mls/hr Documented By: SALINA Diltiazem HCl 125 mg/ Dextrose 125 mls @ 10 mls/hr IV .[id number] BORIS; Protocol Stop: 10/01/24 02:59 Last Titration: 09/01/24 08:56 Dose: Infused Documented By: TORRES Co-signed By: AMY Titration: 09/01/24 05:25 Dose: 0 mg/hr, 0 mls/hr Documented By: SALINA Co-signed By: JOSE ELIAS Titration: 09/01/24 04:27 Dose: 10 mg/hr, 10 mls/hr Documented By: SALINA Co-signed By: JOSE ELIAS Admin: 09/01/24 03:21 Dose: 5 mg/hr, 5 mls/hr Documented By: SALINA Co-signed By: LORA Sodium Chloride (Nss) 500 mls @ 999 mls/hr IV .Q31M ONE Stop: 09/01/24 03:30 Last Infusion: 09/01/24 03:57 Dose: Infused Documented By: Admin: 09/01/24 03:07 Dose: 999 mls/hr Documented By: SALINA Sodium Chloride (Nss) 1,000 mls @ 125 mls/hr IV .Q8H BORIS Stop: 09/04/24 03:59 Last Infusion: 09/01/24 08:57 Dose: Infused Documented By: Admin: 09/01/24 03:59 Dose: 125 mls/hr Documented By: SALINA Cefazolin Sodium (Ancef 2000mg) 2,000 mg in 15 mls @ 3.75 mls/min IV NOW STA Stop: 09/01/24 07:56 Last Admin: 09/01/24 08:04 Dose: Not Given Documented By: GIGI Ceftriaxone Sodium (Rocephin) 2,000 mg in 50 mls @ 100 mls/hr IV ONE ONE Stop: 09/01/24 08:59 Last Infusion: 09/01/24 10:25 Dose: Infused Documented By: Admin: 09/01/24 09:51 Dose: 100 mls/hr Documented By: TORRES Sodium Chloride (Nss) 1,000 mls @ 100 mls/hr IV .Q10H BORIS Stop: 09/04/24 08:51 Last Infusion: 09/01/24 11:53 Dose: Infused Documented By: Admin: 09/01/24 09:51 Dose: 100 mls/hr Documented By: TORRES Lidocaine/Epinephrine (Lidocaine 1%/Epinephrine 1:100,000 50 Ml Vial) 20 ml INFIL NOW ONE Stop: 09/01/24 01:20 Last Admin: 09/01/24 06:45 Dose: 20 ml Documented By: OMAR Miscellaneous (Stat Iv Infusion Titration Per Protocol) 1 each N/A NOW STA Stop: 09/01/24 03:00 Last Admin: 09/01/24 06:02 Dose: Not Given Documented By: SALINA Morphine Sulfate (Morphine Sulfate 4 Mg/Ml 1 Ml Carp\Vial) 3 mg IV NOW STA Stop: 09/02/24 06:20 Last Admin: 09/02/24 06:31 Dose: 3 mg Documented By: ZAIN Oxycodone HCl (Oxycodone Hcl Ir 5 Mg Tab (Immediate Release)) 2.5 mg PO NOW STA Stop: 09/01/24 16:39 Last Admin: 09/01/24 17:00 Dose: 2.5 mg Documented By: KTS Imaging Data Radiologist's Impression: Knee X-Ray 09/01/24 01:19 EXAM: XR knee LT 1 or 2V routine CLINICAL HISTORY: trauma. TECHNIQUE: X-ray images of the left knee were obtained in anteroposterior (AP) and lateral projections. COMPARISON: 03/29/2016 and 11/27/2016. FINDINGS: Bone Structure: Bone alignment is preserved. No acute fractures or dislocations identified. Radiolucent areas with surrounding sclerosis are noted in the distal femur and proximal tibia, likely post-intervention changes related to prior orthopedic hardware placement. A metallic foreign body is seen in the lateral aspect of the distal femur, stable in appearance. Correlation with surgical history is recommended. Joint Spaces: Mild joint space narrowing is observed in both the medial and lateral compartments, suggestive of early degenerative changes. Articular Surfaces: Few small marginal osteophytes are noted, with tibial plateau spiking present. Articular surfaces show early signs of degeneration but remain largely preserved. Patella: The patella is normally aligned. Patellar osteophytes are present, indicating early patellofemoral joint degeneration. Soft Tissues: Mild subcutaneous soft tissue edema is noted, predominantly in the anterior aspect. No soft tissue calcifications or foreign bodies apart from the aforementioned metallic object. Additional Findings: Suggestion of mild joint effusion is present. IMPRESSION: 1. No acute fractures or dislocations. 2. Mild joint effusion and anterior soft tissue edema. New findings. 3. Early degenerative changes of knee joint. Unchanged. 4. Stable likely post-surgical radiolucent areas with surrounding sclerosis in the distal femur and proximal tibia, and an unchanged metallic foreign body in the lateral distal femur; correlate with prior surgical history. Disclaimer: A subtle bone abnormality or fracture may not be readily apparent on X-rays, thus clinical correlation and further imaging including follow-up CT, MRI, or follow-up X-rays are advised as needed. Electronically signed by Paul Greenwood 09-01-2024 02:[address] 09/01/24 02:08 EXAM: CT knee LT wo con CLINICAL HISTORY: trauma. TECHNIQUE: Thin axial images of the left knee joint were obtained along with coronal and sagittal reconstructions. One of the following dose reduction techniques were utilized for this exam: Automated exposure control, adjustment of the mA and/or kV according to patient size, and use of iterative reconstruction. COMPARISON: CR left knee 09/01/2024 was reviewed. FINDINGS: Bones: Normal alignment of the femur, tibia, fibula, and patella is maintained. No acute fractures or dislocations are identified. Low attenuation areas with surrounding sclerosis are noted in the distal femur and proximal tibia, consistent with post-surgical changes. Correlation with surgical history is recommended. A metallic foreign body is seen in the lateral aspect of the distal femur, stable in appearance. Correlation with surgical history is recommended. No new lytic or sclerotic lesions. No evidence of bone marrow edema. Joint Space: Mild joint space narrowing is observed in the medial and lateral compartments, consistent with early degenerative changes. Few intra-articular loose bodies are present, measuring up to 4 mm. Mild knee joint effusion. Articular Cartilage: Articular cartilage is largely preserved, with early signs of degeneration. Small marginal osteophytes and mild tibial plateau spiking are noted. Menisci: Assessment limited. Ligaments: Assessment limited. Tendons: The patellar and quadriceps tendons are normal in appearance. Soft Tissues: Mild anterior subcutaneous soft tissue edema is present. Few foci of subcutaneous air are seen anteriorly, associated with overlying lacerations. No additional soft tissue masses or foreign bodies beyond the noted metallic object. IMPRESSION: 1. No acute fracture or dislocation. 2. Anterior soft tissue edema with subcutaneous air, likely related to soft tissue lacerations. 3. Mild knee joint effusion. 4. Early degenerative changes of the knee joint, with mild joint space narrowing and osteophyte formation. 5. Post-surgical changes in the distal femur and proximal tibia, with a stable metallic foreign body in the lateral distal femur. Correlate with surgical history. 6. Intra-articular loose bodies measuring up to 4 mm. 7. Findings correlate with prior recent x-ray knee. Electronically signed by Paul Greenwood 09-01-2024 03:33 AM Chest X-Ray 09/01/24 04:01 EXAM: XR chest 1V portable CLINICAL HISTORY: Hypoxia. TECHNIQUE: An X-ray image of the chest is obtained in AP projection. COMPARISON: No prior studies are available for comparison. FINDINGS: Pulmonary Parenchyma: No evidence of consolidation, collapse, or focal opacities. No pulmonary nodules are identified. No evidence of pleural effusion or pleural thickening. Heart and Mediastinum: Hyperdensity (could be clips) is projecting over the left mediastinum pleural border. Heart size is prominent. No mediastinal widening. Bony Thorax: Bony thorax appears intact without fractures or deformities. Soft Tissues: Soft tissues overlying the chest wall are unremarkable. IMPRESSION: 1. Heart size is prominent. 2. Hyperdensity (possibly clips) is projecting over the left mediastinum pleural border. Needs clinical/history correlation. 3. Unremarkable rest of the study. Electronically signed by Paul Greenwood 09-01-2024 05:[address] 09/01/24 05:50 EXAM: CT cervical spine wo con CLINICAL HISTORY: trauma TECHNIQUE: Computed tomography of the cervical spine performed without intravenous contrast. Contiguous axial images were obtained from the skull base to T2, with sagittal and coronal reformatted images reconstructed from the axial data. CT scan was performed according to ALARA (as low as reasonable achievable). COMPARISON: None. FINDINGS: The normal cervical lordotic curvature is lost due to spasm. Mild irregularity is noted involving superior endplate of C4 vertebra.- possibility of degenerative changes likely Cervical vertebral bodies are normal in height and alignment, with no evidence of fracture or subluxation. Lateral masses of C1 are symmetrical, and the dens is intact. Prevertebral soft tissues are not widened. The remaining suprahyoid and infrahyoid soft tissues in the neck are unremarkable. C2-C3: No disc bulge, mass effect on the cord or neuroforaminal narrowing. C3-C4: No disc bulge, mass effect on the cord or neuroforaminal narrowing. C4-C5: No disc bulge, mass effect on the cord or neuroforaminal narrowing. C5-C6: No disc bulge, mass effect on the cord or neuroforaminal narrowing. C6-C7: No disc bulge, mass effect on the cord or neuroforaminal narrowing. C7-T1: No disc bulge, mass effect on the cord or neuroforaminal narrowing. Thyroid gland appears unremarkable. IMPRESSION: 1.No acute fracture or subluxation in the cervical spine. 2.Mild irregularity is noted involving superior endplate of C4 vertebra.- possibility of degenerative changes likely Electronically signed by Tristian Goel 09-01-2024 06:[address] 09/01/24 05:50 EXAM: CT head/brain wo con CLINICAL HISTORY: trauma TECHNIQUE: Multiple axial images are obtained from the skull base to the vertex without contrast. CT scan was performed according to ALARA (as low as reasonable achievable). COMPARISON: None. FINDINGS: The brain shows normal morphology, attenuation, and volume for age. No evidence of space occupying lesion, hemorrhage, edema, mass effect, midline shift, extra axial collection, or hydrocephalus is noted. Ventricles, sulci, and basal cisterns are symmetric and normal in size and configuration. The mooney-white matter differentiation is preserved. Left maxillary polyposis. Rest of the visualized paranasal sinuses and mastoid air cells are well aerated. Orbital contents are within normal limits. Bony structures are intact. IMPRESSION: 1. No evidence of acute intracranial abnormality is demonstrated Electronically signed by Tristian Goel 09-01-2024 06:57 AM Discharge Plan Visit Data Chief Complaint: Laceration/Cut (Suture/Dermabond) Stated Complaint: FELL AND CUT KNEE OPEN ED Provider: Stephanie Ge Discharge Problem: Laceration of knee, left, Atrial fibrillation with rapid ventricular response, Fall, Abrasion of right shoulder Patient Disposition: Admitted As Inpatient Condition: Fair Discharge Instructions Interventions: ED Discharge Assessment Last Done: 09/01/24 08:30
[2024-09-01 03:08] LABS: Hematocrit (blood only) 44.2 % (42.0-52.0); Hemoglobin 14.4 g/dl (14.0-18.0); Mean Corpuscular Hemoglobin 32.2 pg (25.0-34.0); Mean Corpuscular Volume 98.9 fL (80.0-100.0); Platelet Count 89 K/uL (130-400); RDW Standard Deviation 54.9 fL (36.4-46.3); Red Blood Count 4.47 M/uL (4.70-6.10); White Blood Count 5.90 K/ul (4.8-10.8)
[2024-09-01 03:09] LABS: INR 1.2 (0.9-1.1); Immature Granulocytes # (auto) 0.02 K/uL (0.01-0.20); Immature Granulocytes % (auto) 0.3 %; Prothrombin Time 12.5 Seconds (9.0-12.0)
--- NOTE | 2024-09-01 03:33 | CT Scan Report ---
EXAM: CT knee LT wo con CLINICAL HISTORY: trauma. TECHNIQUE: Thin axial images of the left knee joint were obtained along with coronal and sagittal reconstructions. One of the following dose reduction techniques were utilized for this exam: Automated exposure control, adjustment of the mA and/or kV according to patient size, and use of iterative reconstruction. COMPARISON: CR left knee 09/01/2024 was reviewed. FINDINGS: Bones: Normal alignment of the femur, tibia, fibula, and patella is maintained. No acute fractures or dislocations are identified. Low attenuation areas with surrounding sclerosis are noted in the distal femur and proximal tibia, consistent with post-surgical changes. Correlation with surgical history is recommended. A metallic foreign body is seen in the lateral aspect of the distal femur, stable in appearance. Correlation with surgical history is recommended. No new lytic or sclerotic lesions. No evidence of bone marrow edema. Joint Space: Mild joint space narrowing is observed in the medial and lateral compartments, consistent with early degenerative changes. Few intra-articular loose bodies are present, measuring up to 4 mm. Mild knee joint effusion. Articular Cartilage: Articular cartilage is largely preserved, with early signs of degeneration. Small marginal osteophytes and mild tibial plateau spiking are noted. Menisci: Assessment limited. Ligaments: Assessment limited. Tendons: The patellar and quadriceps tendons are normal in appearance. Soft Tissues: Mild anterior subcutaneous soft tissue edema is present. Few foci of subcutaneous air are seen anteriorly, associated with overlying lacerations. No additional soft tissue masses or foreign bodies beyond the noted metallic object. IMPRESSION: 1. No acute fracture or dislocation. 2. Anterior soft tissue edema with subcutaneous air, likely related to soft tissue lacerations. 3. Mild knee joint effusion. 4. Early degenerative changes of the knee joint, with mild joint space narrowing and osteophyte formation. 5. Post-surgical changes in the distal femur and proximal tibia, with a stable metallic foreign body in the lateral distal femur. Correlate with surgical history. 6. Intra-articular loose bodies measuring up to 4 mm. 7. Findings correlate with prior recent x-ray knee. Electronically signed by Paul Greenwood 09-01-2024 03:33 AM
[2024-09-01] MEDS: SODIUM CHLORIDE 0.9% 1,000 ML IV SCH ×2 (03:59→09:51)
--- NOTE | 2024-09-01 05:12 | XRay Report ---
EXAM: XR chest 1V portable CLINICAL HISTORY: Hypoxia. TECHNIQUE: An X-ray image of the chest is obtained in AP projection. COMPARISON: No prior studies are available for comparison. FINDINGS: Pulmonary Parenchyma: No evidence of consolidation, collapse, or focal opacities. No pulmonary nodules are identified. No evidence of pleural effusion or pleural thickening. Heart and Mediastinum: Hyperdensity (could be clips) is projecting over the left mediastinum pleural border. Heart size is prominent. No mediastinal widening. Bony Thorax: Bony thorax appears intact without fractures or deformities. Soft Tissues: Soft tissues overlying the chest wall are unremarkable. IMPRESSION: 1. Heart size is prominent. 2. Hyperdensity (possibly clips) is projecting over the left mediastinum pleural border. Needs clinical/history correlation. 3. Unremarkable rest of the study. Electronically signed by Paul Greenwood 09-01-2024 05:12 AM
[2024-09-01] MEDS: ETOMIDATE 2 MG/ML 20 ML VIAL IV ONE (05:27)
[2024-09-01] MEDS: STAT IV Infusion **Titration per Protocol STA (06:02)
--- NOTE | 2024-09-01 06:28 | Emergency Department Note ---
ED Visit Note I was asked by Dr. Ge to perform electrical cardioversion on this patient in rapid A-fib with RVR. Please see her dictation regarding complete history and physical examination. In short, this is a 34 year old male who presents for a left knee laceration after a fall. The patient has history of congenital heart disease. Pt. was found to have abnormal rhythm and was not responding to medical management. Decision made to perform cardioversion. Verbal and written consent obtained to perform the procedure. The patient was sedated. Please see Dr. Ge's dictation regarding the sedation. After appropriate sedation, synchronized cardioversion of 100J performed. The patient did convert to normal sinus rhythm with ventricular rate of 84 bpm. He did experience a bradycardia transiently, which was reported from [facility] after previous cardioversion. This quickly resolved. He did tolerate the procedure well.
[2024-09-01] MEDS: LIDOCAINE 1%/EPINEPHRINE 1:100,000 50 ML VIAL INFIL ONE (06:45)
--- NOTE | 2024-09-01 06:53 | CT Scan Report ---
EXAM: CT cervical spine wo con CLINICAL HISTORY: trauma TECHNIQUE: Computed tomography of the cervical spine performed without intravenous contrast. Contiguous axial images were obtained from the skull base to T2, with sagittal and coronal reformatted images reconstructed from the axial data. CT scan was performed according to ALARA (as low as reasonable achievable). COMPARISON: None. FINDINGS: The normal cervical lordotic curvature is lost due to spasm. Mild irregularity is noted involving superior endplate of C4 vertebra.- possibility of degenerative changes likely Cervical vertebral bodies are normal in height and alignment, with no evidence of fracture or subluxation. Lateral masses of C1 are symmetrical, and the dens is intact. Prevertebral soft tissues are not widened. The remaining suprahyoid and infrahyoid soft tissues in the neck are unremarkable. C2-C3: No disc bulge, mass effect on the cord or neuroforaminal narrowing. C3-C4: No disc bulge, mass effect on the cord or neuroforaminal narrowing. C4-C5: No disc bulge, mass effect on the cord or neuroforaminal narrowing. C5-C6: No disc bulge, mass effect on the cord or neuroforaminal narrowing. C6-C7: No disc bulge, mass effect on the cord or neuroforaminal narrowing. C7-T1: No disc bulge, mass effect on the cord or neuroforaminal narrowing. Thyroid gland appears unremarkable. IMPRESSION: 1.No acute fracture or subluxation in the cervical spine. 2.Mild irregularity is noted involving superior endplate of C4 vertebra.- possibility of degenerative changes likely Electronically signed by Tristian Goel 09-01-2024 06:53 AM
--- NOTE | 2024-09-01 06:57 | CT Scan Report ---
EXAM: CT head/brain wo con CLINICAL HISTORY: trauma TECHNIQUE: Multiple axial images are obtained from the skull base to the vertex without contrast. CT scan was performed according to ALARA (as low as reasonable achievable). COMPARISON: None. FINDINGS: The brain shows normal morphology, attenuation, and volume for age. No evidence of space occupying lesion, hemorrhage, edema, mass effect, midline shift, extra axial collection, or hydrocephalus is noted. Ventricles, sulci, and basal cisterns are symmetric and normal in size and configuration. The mooney-white matter differentiation is preserved. Left maxillary polyposis. Rest of the visualized paranasal sinuses and mastoid air cells are well aerated. Orbital contents are within normal limits. Bony structures are intact. IMPRESSION: 1. No evidence of acute intracranial abnormality is demonstrated Electronically signed by Tristian Goel 09-01-2024 06:57 AM
--- NOTE | 2024-09-01 08:12 | History & Physical Report ---
Date of Service September 01, 2024 Assessment & Plan (1) Rapid atrial fibrillation: Plan: 34-year-old male with past medical history significant for congenital aortic valve insufficiency, tricuspid atresia status post Fontan's procedure, liver disease after Fontan procedure, liver lesion, cardiac cirrhosis, mild intellectual disability, obesity, Sino atrial node dysfunction, history of systolic CHF, thrombocytopenia, mood disorder, a flutter lives at home with his mother presents with fall and found to have left knee laceration and also rapid A-fib. Patient had a fall accidentally after he tripped and fell going up the steps . Seems had a large amount of bleeding and family tried to place a dressing on. In triage patient found to have have tachycardia as well as hypoxia. EKG showed rapid A-fib. ER call his penology teacher in [place] and was advised for cardioversion. Patient is status post cardioversion and currently in sinus rhythm. His labs showed GENA with creatinine of 2.1 and K of 5.2. Because of his abnormal labs [facility] cardiology advised for observation in the hospital. Patient is currently getting sutures to his left knee. For last couple of days patient was having nausea and vomiting and which is improving. As per his mother did not eating anything after 2 PM yesterday. Patient denies any dizziness or chest pain or palpitations prior to fall. No shortness of breath. No cough. No fevers. No diarrhea. No abdominal pain. No fevers. Currently resting comfortably. Patient in December 2023 was transferred to [facility] from outside hospital for acute hypoxemic respiratory failure. He was noted to be in a flutter with heart rates in 220s. He was cardioverted with 100 J. He required oxygen 4 L. Echo showed EF of 50% but poor windows. At that time his total bilirubin was 5. Chest x-ray showed pulm edema. Patient was treated with IV diuresis at that time and was transferred for [place] for evaluation by pediatric cardiology. As per the [facility] notes patient seems to be out with friends in [place] when some of his friends noticed his lips were blue. Patient also started to have palpitations which prompted him to go to the ER. Upon transfer to [place] he was was saturating okay on 3 L and heart rates were okay. At [place] received IV diuresis and was seen by peds cardiology, EP and hepatology due to his complex history of tricuspid atresia status post Fontan procedure with cardiac cirrhosis sequelae. At [place] did not had any more atrial flutter or A-fib. His thoracic echo was done to evaluate Fontan pathway but it was of suboptimal and was thought that he needed congenital cardiac MRI done as outpatient. Also asked for sleep apnea referral and was discharged on Eliquis. Since he was starting Eliquis, aspirin was stopped. His Lasix was increased from 20 to 40 mg daily. And was also started on Coreg. Advised for Zio patch and follow-up with pediatric cardiology. Follow-up with pediatric Cardiology in March 2024 and there is plan for stress test and probably MRI. Rapid atrial fibrillation Status post cardioversion as per recommendation by pediatric cardiology [place] Currently in sinus rhythm. History of sinoatrial node dysfunction Continue home Coreg with holding parameters On Eliquis Will follow echo Consult cardiology Close monitoring telemetry Hypoxia Requiring oxygen Chest x-ray seems okay History of respiratory requiring oxygen because of pulmonary edema he December 2023 Cardio consulted Will monitor Fall Left knee laceration. Getting sutures in the ER CT head, CT cervical spine, unremarkable chest x-ray no acute findings Left knee CT scan. No acute fractures or dislocation. Anterior soft tissue edema with subcutaneous air related to soft tissue lacerations seen. Metallic foreign body in the lateral aspect distal femur stable in appearance PT OT when stable Pain control Empiric Rocephin for the laceration History of systolic CHF Will follow echo Holding Lasix for GENA Getting fluids Monitor for volume overload Nausea and vomiting For last couple of days Improving Will monitor GENA Baseline creatinine around 1 Today creatinine of 2.1 Possibly from nausea and vomiting Holding Lasix and lisinopril Follow repeat labs Hyperkalemia Potassium 5.2 Holding lisinopril Follow repeat labs Cardiac cirrhosis Thrombocytopenia Total bilirubin 2.5, AST 22, ALT 14, alkaline phos is 84 Platelets 89 around baseline We will follow repeat labs Cardiology recommended follow-up with hepatology Congenital aortic valve insufficiency Tricuspid atresia Status post Fontan's procedure Follows with cardiology Significant ventricular dilatation on echo Plan for stress test and MRI Hypertension Continue Coreg with holding parameters Holding lisinopril and Lasix We will monitor Mood disorder On Zoloft and trazodone GERD On omeprazole DVT prophylaxis On Eliquis. Monitor for any bleeding Disposition Telemetry Full code. History of Present Illness Chief Complaint: Status post fall, left knee laceration, rapid A-fib Primary Care Provider: Beryl Thomson PA-C 34-year-old male with past medical history significant for congenital aortic valve insufficiency, tricuspid atresia status post Fontan's procedure, liver disease after Fontan procedure, liver lesion, cardiac cirrhosis, mild intellectual disability, obesity, Sino atrial node dysfunction, history of systolic CHF, thrombocytopenia, mood disorder, a flutter lives at home with his mother presents with fall and found to have left knee laceration and also rapid A-fib. Patient had a fall accidentally after he tripped and fell going up the steps . Seems had a large amount of bleeding and family tried to place a dressing on. In triage patient found to have have tachycardia as well as hypoxia. EKG showed rapid A-fib. ER call his penology teacher in [place] and was advised for cardioversion. Patient is status post cardioversion and currently in sinus rhythm. His labs showed GENA with creatinine of 2.1 and K of 5.2. Because of his abnormal labs [facility] cardiology advised for observation in the hospital. Patient is currently getting sutures to his left knee. For last couple of days patient was having nausea and vomiting and which is improving. As per his mother did not eating anything after 2 PM yesterday. Patient denies any dizziness or chest pain or palpitations prior to fall. No shortness of breath. No cough. No fevers. No diarrhea. No abdominal pain. No fevers. Currently resting comfortably. Patient in December 2023 was transferred to [facility] from outside hospital for acute hypoxemic respiratory failure. He was noted to be in a flutter with heart rates in 220s. He was cardioverted with 100 J. He required oxygen 4 L. Echo showed EF of 50% but poor windows. At that time his total bilirubin was 5. Chest x-ray showed pulm edema. Patient was treated with IV diuresis at that time and was transferred for [place] for evaluation by pediatric cardiology. As per the epic notes patient seems to be out with friends in [place] when some of his friends noticed his lips were blue. Patient also started to have palpitations which prompted him to go to the ER. Upon transfer to [place] he was was saturating okay on 3 L and heart rates were okay. At [place] received IV diuresis and was seen by peds cardiology, EP and hepatology due to his complex history of tricuspid atresia status post Fontan procedure with cardiac cirrhosis sequelae. At [place] did not had any more atrial flutter or A-fib. His thoracic echo was done to evaluate Fontan pathway but it was of suboptimal and was thought that he needed congenital cardiac MRI done as outpatient. Also asked for sleep apnea referral and was discharged on Eliquis. Since he was starting Eliquis, aspirin was stopped. His Lasix was increased from 20 to 40 mg daily. And was also started on Coreg. Advised for Zio patch and follow-up with pediatric cardiology. Follow-up with pediatric Cardiology in March 2024 and there is plan for stress test and probably MRI. Past medical history. As mentioned above Past surgical history. Circumcision., And right and left heart cath in 2013. EGD. Left knee arthroscopy. Rocky Fontan procedure in 1992. Social history. No smoking. No alcohol currently as per [employer]. No drug use. Family history. No family history on file. Allergies Allergy/AdvReac Type Severity Reaction Status Date / Time acetaminophen AdvReac Unknown AVOIDS D/T Verified 09/01/24 02:23 CIRRHOSIS OF LIVER Home Medications Medication Instructions Recorded Confirmed Type apixaban 5 mg tablet (Eliquis) 5 mg PO BID 09/01/24 09/01/24 History betamethasone dipropionate 0.05 % 1 applic topical DIRECTED 09/01/24 09/01/24 History topical cream carvedilol 6.25 mg tablet 6.25 mg PO BID 09/01/24 09/01/24 History furosemide 40 mg tablet 40 mg PO DAILY 09/01/24 09/01/24 History lisinopril 20 mg tablet 20 mg PO DAILY 09/01/24 09/01/24 History montelukast 10 mg tablet 10 mg PO DAILY 09/01/24 09/01/24 History omeprazole 20 mg capsule,delayed 20 mg PO BID 09/01/24 09/01/24 History release sertraline 100 mg tablet 100 mg PO DAILY 09/01/24 09/01/24 History trazodone 50 mg tablet 50 mg PO HS 09/01/24 09/01/24 History Past Med/Surg History Problem List (Updated 09/01/24 @ 08:24 by Marcell Aiken MD) Rapid atrial fibrillation Laceration of knee, left (Acute) Foot pain, right (Acute) Right ankle sprain (Acute) Right ankle sprain (Acute) Left knee injury (Acute) Tricuspid atresia Left knee injury (Acute) Cellulitis Social History Smoking Status: Current every day smoker Tobacco Type: Smokeless Tobacco (Dip or Chew) Hx Substance Use: No Feels Safe at Home: Yes Review of Systems Review of Systems: All systems reviewed & are unremarkable except as noted in HPI & below Physical Exam Physical Exam: General- Not in acute distress Head- atraumatic Eyes- PERRL. ENT- oropharynx clear Neck- supple, no JVD. Lungs- clear to auscultation no wheezing or crackles Heart- regular rate and rhythm; no murmur, no gallop. Abdomen- normal bowel sounds, soft, nontender, no distension Extremities- b/l lower extremity edema present . Left knee deep laceration seen Neuro- alert, oriented PERRL, no facial palsy; no dysarthria; Results & Data Results & Data Vital Signs (Past 12 Hours) Vital Signs Temp Pulse Pulse Resp BP BP Pulse Ox 09/01/24 08:00 92/62 L 09/01/24 07:51 102 H 95 09/01/24 07:42 99 H 94 09/01/24 07:30 91/64 L 09/01/24 07:00 103/74 09/01/24 06:59 100/72 09/01/24 06:53 88/65 L 09/01/24 06:51 100 H 09/01/24 06:48 93 H 95 09/01/24 06:45 86/67 L 09/01/24 06:30 92 H 20 95/68 L 95 09/01/24 06:04 95 H 18 99/71 L 94 09/01/24 06:00 89 18 95/60 L 94 09/01/24 05:55 90 20 96/70 L 95 09/01/24 05:50 85 20 99/65 L 98 09/01/24 05:45 83 20 101/65 96 09/01/24 05:40 74 20 106/58 L 95 09/01/24 05:35 72 16 94/75 L 95 09/01/24 05:32 67 09/01/24 05:30 167 H 16 98/78 L 96 09/01/24 05:25 140 H 18 110/70 98 09/01/24 05:18 95 09/01/24 05:03 150 H 09/01/24 05:00 164 H 18 95/73 L 94 09/01/24 04:50 152 H 20 116/87 93 09/01/24 04:40 168 H 22 91/68 L 94 09/01/24 04:20 159 H 18 92/68 L 91 09/01/24 04:11 151 H 21 89/66 L 92 09/01/24 04:00 158 H 18 84/66 L 93 09/01/24 03:51 160 H 21 84/65 L 93 09/01/24 03:40 151 H 22 89/69 L 93 09/01/24 03:30 162 H 20 94/66 L 93 09/01/24 03:25 156 H 19 106/68 93 09/01/24 03:17 152 H 19 92/66 L 92 09/01/24 03:17 160 H 20 92/66 L 93 09/01/24 03:00 164 H 20 89/69 L 93 09/01/24 02:55 156 H 20 97/70 L 94 09/01/24 02:43 160 H 20 90/73 L 91 09/01/24 02:00 160 H 20 103/79 91 09/01/24 01:30 164 H 30 H 100/70 90 09/01/24 01:03 148 H 09/01/24 01:02 168 H 24 109/85 90 09/01/24 00:50 35.9 C L 154 H 16 106/72 85 L O2 Del Method O2 Flow Rate 09/01/24 08:00 09/01/24 07:51 Nasal Cannula 09/01/24 07:42 Nasal Cannula 09/01/24 07:30 09/01/24 07:00 09/01/24 06:59 09/01/24 06:53 09/01/24 06:51 09/01/24 06:48 Nasal Cannula 09/01/24 06:45 09/01/24 06:30 09/01/24 06:04 Room Air 09/01/24 06:00 Nasal Cannula 09/01/24 05:55 Nasal Cannula 4 09/01/24 05:50 Nasal Cannula 09/01/24 05:45 Non-rebreather 09/01/24 05:40 Non-rebreather 15 09/01/24 05:35 Non-rebreather 15 09/01/24 05:32 09/01/24 05:30 Non-rebreather 15 09/01/24 05:25 Non-rebreather 15 09/01/24 05:18 Non-rebreather 15 09/01/24 05:03 09/01/24 05:00 Nasal Cannula 4 09/01/24 04:50 Nasal Cannula 4 09/01/24 04:40 Nasal Cannula 4 09/01/24 04:20 Nasal Cannula 4 09/01/24 04:11 Nasal Cannula 4 09/01/24 04:00 Room Air 09/01/24 03:51 Nasal Cannula 4 09/01/24 03:40 Nasal Cannula 4 09/01/24 03:30 Nasal Cannula 4 09/01/24 03:25 Nasal Cannula 4 09/01/24 03:17 Nasal Cannula 4 09/01/24 03:17 Room Air 09/01/24 03:00 Nasal Cannula 4 09/01/24 02:55 Nasal Cannula 4 09/01/24 02:43 Nasal Cannula 4 09/01/24 02:00 Nasal Cannula 4 09/01/24 01:30 09/01/24 01:03 09/01/24 01:02 Nasal Cannula 4 09/01/24 00:50 Room Air Diagnostic Findings Laboratory Results WBC 5.90 K/ul (4.8-10.8) 09/01/24 01:10 RBC 4.47 M/uL (4.70-6.10) L 09/01/24 01:10 Hgb 14.4 g/dl (14.0-18.0) 09/01/24 01:10 Hct 44.2 % (42.0-52.0) 09/01/24 01:10 MCV 98.9 fL (80.0-100.0) 09/01/24 01:10 MCH 32.2 pg (25.0-34.0) 09/01/24 01:10 MCHC 32.6 g/dL (32.0-36.0) 09/01/24 01:10 RDW Std Deviation 54.9 fL (36.4-46.3) H 09/01/24 01:10 RDW Coeff of Mary 15.1 % (11.5-14.5) H 09/01/24 01:10 Plt Count 89 K/uL (130-400) L 09/01/24 01:10 MPV 14.9 fL (9.4-12.4) H 09/01/24 01:10 Immature Gran % (Auto) 0.3 % 09/01/24 01:10 Neut % (Auto) 67.0 % 09/01/24 01:10 Lymph % (Auto) 17.3 % 09/01/24 01:10 [place] % (Auto) 11.5 % 09/01/24 01:10 Eos % (Auto) 3.4 % 09/01/24 01:10 Baso % (Auto) 0.5 % 09/01/24 01:10 Neut # (Auto) 3.95 K/uL (1.40-6.50) 09/01/24 01:10 Lymph # (Auto) 1.02 K/uL (1.20-3.40) L 09/01/24 01:10 [place] # (Auto) 0.68 K/uL (0.11-0.59) H 09/01/24 01:10 Eos # (Auto) 0.20 K/uL (0.00-0.50) 09/01/24 01:10 Baso # (Auto) 0.03 K/uL (0.00-0.20) 09/01/24 01:10 Immature Gran # (Auto) 0.02 K/uL (0.01-0.20) 09/01/24 01:10 Platelet Estimate Decreased (Normal) L 09/01/24 01:10 Echinocytes 1+ 09/01/24 01:10 PT 12.5 Seconds (9.0-12.0) H 09/01/24 01:10 INR 1.2 (0.9-1.1) H 09/01/24 01:10 Sodium 133 mmol/L (136-145) L 09/01/24 01:10 Potassium 5.2 mmol/L (3.5-5.1) H 09/01/24 01:10 Chloride 104 mmol/L (98-107) 09/01/24 01:10 Carbon Dioxide 20 mmol/L (21-32) L 09/01/24 01:10 Anion Gap 9 (3-11) 09/01/24 01:10 BUN 51 mg/dl (6-23) H 09/01/24 01:10 Creatinine 2.12 mg/dl (0.6-1.4) H 09/01/24 01:10 Est Cr Clr Drug Dosing 63.8 ml/min 09/01/24 01:10 eGFR 40.85 09/01/24 01:10 BUN/Creatinine Ratio 24.1 (10-20) H 09/01/24 01:10 Glucose 115 mg/dl (70-99(Fasting)) H 09/01/24 01:10 Calcium 9.2 mg/dl (8.6-10.3) 09/01/24 01:10 Magnesium 2.3 mg/dl (1.7-2.4) 09/01/24 01:10 Total Bilirubin 2.5 mg/dl (0.2-1.0) H 09/01/24 01:10 AST 22 U/L (13-39) 09/01/24 01:10 ALT 14 U/L (7-52) 09/01/24 01:10 Alkaline Phosphatase 84 U/L (34-104) 09/01/24 01:10 Total Protein 7.3 gm/dl (6.0-8.3) 09/01/24 01:10 Albumin 4.1 gm/dl (3.4-5.0) 09/01/24 01:10 Globulin 3.2 gm/dl (2.5-4.0) 09/01/24 01:10 Albumin/Globulin Ratio 1.3 (0.9-2) 09/01/24 01:10 TSH 7.780 uIu/ml (0.300-4.500) H 09/01/24 01:10 Free T4 1.22 ng/dl (0.61-1.60) 09/01/24 01:10 Impressions Knee X-Ray 09/01/24 01:19 EXAM: XR knee LT 1 or 2V routine CLINICAL HISTORY: trauma. TECHNIQUE: X-ray images of the left knee were obtained in anteroposterior (AP) and lateral projections. COMPARISON: 03/29/2016 and 11/27/2016. FINDINGS: Bone Structure: Bone alignment is preserved. No acute fractures or dislocations identified. Radiolucent areas with surrounding sclerosis are noted in the distal femur and proximal tibia, likely post-intervention changes related to prior orthopedic hardware placement. A metallic foreign body is seen in the lateral aspect of the distal femur, stable in appearance. Correlation with surgical history is recommended. Joint Spaces: Mild joint space narrowing is observed in both the medial and lateral compartments, suggestive of early degenerative changes. Articular Surfaces: Few small marginal osteophytes are noted, with tibial plateau spiking present. Articular surfaces show early signs of degeneration but remain largely preserved. Patella: The patella is normally aligned. Patellar osteophytes are present, indicating early patellofemoral joint degeneration. Soft Tissues: Mild subcutaneous soft tissue edema is noted, predominantly in the anterior aspect. No soft tissue calcifications or foreign bodies apart from the aforementioned metallic object. Additional Findings: Suggestion of mild joint effusion is present. IMPRESSION: 1. No acute fractures or dislocations. 2. Mild joint effusion and anterior soft tissue edema. New findings. 3. Early degenerative changes of knee joint. Unchanged. 4. Stable likely post-surgical radiolucent areas with surrounding sclerosis in the distal femur and proximal tibia, and an unchanged metallic foreign body in the lateral distal femur; correlate with prior surgical history. Disclaimer: A subtle bone abnormality or fracture may not be readily apparent on X-rays, thus clinical correlation and further imaging including follow-up CT, MRI, or follow-up X-rays are advised as needed. Electronically signed by Paul Greenwood 09-01-2024 02:[address] 09/01/24 02:08 EXAM: CT knee LT wo con CLINICAL HISTORY: trauma. TECHNIQUE: Thin axial images of the left knee joint were obtained along with coronal and sagittal reconstructions. One of the following dose reduction techniques were utilized for this exam: Automated exposure control, adjustment of the mA and/or kV according to patient size, and use of iterative reconstruction. COMPARISON: CR left knee 09/01/2024 was reviewed. FINDINGS: Bones: Normal alignment of the femur, tibia, fibula, and patella is maintained. No acute fractures or dislocations are identified. Low attenuation areas with surrounding sclerosis are noted in the distal femur and proximal tibia, consistent with post-surgical changes. Correlation with surgical history is recommended. A metallic foreign body is seen in the lateral aspect of the distal femur, stable in appearance. Correlation with surgical history is recommended. No new lytic or sclerotic lesions. No evidence of bone marrow edema. Joint Space: Mild joint space narrowing is observed in the medial and lateral compartments, consistent with early degenerative changes. Few intra-articular loose bodies are present, measuring up to 4 mm. Mild knee joint effusion. Articular Cartilage: Articular cartilage is largely preserved, with early signs of degeneration. Small marginal osteophytes and mild tibial plateau spiking are noted. Menisci: Assessment limited. Ligaments: Assessment limited. Tendons: The patellar and quadriceps tendons are normal in appearance. Soft Tissues: Mild anterior subcutaneous soft tissue edema is present. Few foci of subcutaneous air are seen anteriorly, associated with overlying lacerations. No additional soft tissue masses or foreign bodies beyond the noted metallic object. IMPRESSION: 1. No acute fracture or dislocation. 2. Anterior soft tissue edema with subcutaneous air, likely related to soft tissue lacerations. 3. Mild knee joint effusion. 4. Early degenerative changes of the knee joint, with mild joint space narrowing and osteophyte formation. 5. Post-surgical changes in the distal femur and proximal tibia, with a stable metallic foreign body in the lateral distal femur. Correlate with surgical history. 6. Intra-articular loose bodies measuring up to 4 mm. 7. Findings correlate with prior recent x-ray knee. Electronically signed by Paul Greenwood 09-01-2024 03:33 AM Chest X-Ray 09/01/24 04:01 EXAM: XR chest 1V portable CLINICAL HISTORY: Hypoxia. TECHNIQUE: An X-ray image of the chest is obtained in AP projection. COMPARISON: No prior studies are available for comparison. FINDINGS: Pulmonary Parenchyma: No evidence of consolidation, collapse, or focal opacities. No pulmonary nodules are identified. No evidence of pleural effusion or pleural thickening. Heart and Mediastinum: Hyperdensity (could be clips) is projecting over the left mediastinum pleural border. Heart size is prominent. No mediastinal widening. Bony Thorax: Bony thorax appears intact without fractures or deformities. Soft Tissues: Soft tissues overlying the chest wall are unremarkable. IMPRESSION: 1. Heart size is prominent. 2. Hyperdensity (possibly clips) is projecting over the left mediastinum pleural border. Needs clinical/history correlation. 3. Unremarkable rest of the study. Electronically signed by Paul Greenwood 09-01-2024 05:[address] 09/01/24 05:50 EXAM: CT cervical spine wo con CLINICAL HISTORY: trauma TECHNIQUE: Computed tomography of the cervical spine performed without intravenous contrast. Contiguous axial images were obtained from the skull base to T2, with sagittal and coronal reformatted images reconstructed from the axial data. CT scan was performed according to ALARA (as low as reasonable achievable). COMPARISON: None. FINDINGS: The normal cervical lordotic curvature is lost due to spasm. Mild irregularity is noted involving superior endplate of C4 vertebra.- possibility of degenerative changes likely Cervical vertebral bodies are normal in height and alignment, with no evidence of fracture or subluxation. Lateral masses of C1 are symmetrical, and the dens is intact. Prevertebral soft tissues are not widened. The remaining suprahyoid and infrahyoid soft tissues in the neck are unremarkable. C2-C3: No disc bulge, mass effect on the cord or neuroforaminal narrowing. C3-C4: No disc bulge, mass effect on the cord or neuroforaminal narrowing. C4-C5: No disc bulge, mass effect on the cord or neuroforaminal narrowing. C5-C6: No disc bulge, mass effect on the cord or neuroforaminal narrowing. C6-C7: No disc bulge, mass effect on the cord or neuroforaminal narrowing. C7-T1: No disc bulge, mass effect on the cord or neuroforaminal narrowing. Thyroid gland appears unremarkable. IMPRESSION: 1.No acute fracture or subluxation in the cervical spine. 2.Mild irregularity is noted involving superior endplate of C4 vertebra.- possibility of degenerative changes likely Electronically signed by Tristian Goel 09-01-2024 06:[address] 09/01/24 05:50 EXAM: CT head/brain wo con CLINICAL HISTORY: trauma TECHNIQUE: Multiple axial images are obtained from the skull base to the vertex without contrast. CT scan was performed according to ALARA (as low as reasonable achievable). COMPARISON: None. FINDINGS: The brain shows normal morphology, attenuation, and volume for age. No evidence of space occupying lesion, hemorrhage, edema, mass effect, midline shift, extra axial collection, or hydrocephalus is noted. Ventricles, sulci, and basal cisterns are symmetric and normal in size and configuration. The mooney-white matter differentiation is preserved. Left maxillary polyposis. Rest of the visualized paranasal sinuses and mastoid air cells are well aerated. Orbital contents are within normal limits. Bony structures are intact. IMPRESSION: 1. No evidence of acute intracranial abnormality is demonstrated Electronically signed by Tristian Goel 09-01-2024 06:57 AM ECG Additional Comments: ECG. Rapid A-fib with rate of 161. Left axis deviation. QTc 448. Code Status & VTE Plan VTE Prophylaxis Plan VTE Prophylaxis will be ordered: Yes
--- NOTE | 2024-09-01 08:39 | Emergency Department Note ---
ED Visit Note I was asked by Dr. Stephanie Ge to assist in repair of patient's wound. Wound is a large, crescent ziegler shaped wound just under his kneecap. The wound appears to be multiple layers with moderate bleeding. The patient is on blood thinners. Verbal consent was obtained to perform the procedure. Using sterile technique the wound was cleaned with Betadine. The area was sterilely draped. Buffered lidocaine was used by Dr. Ge to anesthetize the wound. Once the patient was anesthetized, the wound was copiously irrigated under pressure with sterile saline. The wound was explored and there were no deep structures injured such as tendons, bone, or significant blood vessels. The laceration was repaired using 12 Chromic Gut sutures, 5 mattress sutures and 40 simple interrupted 4-0 nylon sutures with the wound edges being well approximated. The patient tolerated the procedure well. Hemostasis was achieved. The area was cleaned with sterile saline and dressed with bacitracin ointment and bandage. The patient also had an Dung wrap applied and suture care was discussed with the patient. The patient is being admitted to the hospital for inpatient management, please refer to [facility] hospitalist group's documentation for further evaluation and management of this patient. .
[2024-09-01] MEDS ORDERED: POLYETHYLENE (MIRALAX) 17 GM PACK PO PRN (08:52)
[2024-09-01] MEDS ORDERED: NITROGLYCERIN SL 0.4 MG/TAB TAB SL PRN (08:52)
[2024-09-01] MEDS: APIXABAN 5 MG TABLET PO SCH (09:51)
[2024-09-01] MEDS: cefTRIAXone SODIUM 2,000 MG/50 ML BAG IV ONE (09:51)
[2024-09-01] MEDS: SERTRALINE HCL 100 MG TABLET PO SCH (09:51)
[2024-09-01] MEDS: MONTELUKAST SODIUM 10 MG TABLET PO SCH (09:51)
--- NOTE | 2024-09-01 11:14 | Cardiology Consultation ---
Date of Consultation September 01, 2024 Assessment & Plan (1) Atrial fibrillation with rapid ventricular response: (2) Congenital heart disease: (3) Status post Fontan procedure: (4) GENA (acute kidney injury): Plan Patient is a complex 34 year old male with congenital heart disease and history of atrial fib/flutter, admitted after a fall, knee laceration and found to have recurrent afib RVR in the 160's with hypotension. ER contacted his adult congenital amusement ride inspector at [facility] who recommended DCCV. Patient underwent successful cardioversion in the ER, with return to NSR. Currently patient sinus/sinus tach ranging 90-110 bmp. repeat EKG post cardioversion. Eliquis 5 mg BID and carvedilol 6.25 mg BID were continued on admission. May need to consider transitioning from carvedilol to metoprolol succinate given hypotension. Already received morning dose of carvedilol. He remains borderline hypotensive and mildly hypoxic requiring supplemental O2 at 2 L. He was started on IV fluids on admission due to GENA - creatinine of 2.1 and potassium 5.2. Upon exam, with increased LE edema and hypoxia, I have concerns for mildly decompensated HF signs/symptoms - would stop IV fluids at this time. Echo ordered and will be read by [facility] Adult Congenital. Will hold IV diuretics for now given GENA and monitor fluid status closely. Further recommendations pending discussion with Dr. Miller With any additional clinical decline, would consider transfer to [facility]. I spent a total of 70 minutes on the date of service in preparation, delivery, and documentation of the care provided to this patient, excluding any time spent in the performance of separately billed services. Juana Rogers PA-C Department of Cardiology, [facility] This chart was completed in part utilizing Speech Voice Recognition Software. Grammatical errors, random word insertions, pronoun errors, and incomplete sentences are an occasional consequence of this system due to software limitations, ambient noise, and hardware issues. Any formal questions or concerns about the content, text, or information contained within the body of this dictation should be directly addressed to the provider for clarification. Supervising Physician Co-Signing Physician Notes I have personally performed a history and physical examination on the patient. I have reviewed the advance practitioner's documentation, and I agree with, and take responsibility for the plan of care. 34-year-old male presenting to the emergency department with a mechanical fall noted to be atrial fibrillation with rapid ventricular response. External dir ect-current cardioversion was performed by the ER physician last night with 100 J. He is remained in sinus rhythm heart rate 90 to 100 bpm on telemetry. Borderline hypotensive. Acute renal insufficiency and mild hyperkalemia also noted. Creatinine mildly improved on repeat testing.Patient found to be hypoxic and placed on 4 L of supplemental oxygen which has now been weaned to 3 L nasal cannula. Denies chest pain, shortness of breath, or palpitations. Notes mild, chronic bilateral lower extremity edema. Poor historian. Generally sleeps at a 30 to 40 degree angle although denies paroxysmal nocturnal dyspnea or orthopnea. Compliant with cardiovascular medications.Findings suggest acute on chronic heart failure with history of complex congenital heart disease, tricuspid atresia status post Fontan procedure. Preliminary review of repeat echocardiogram demonstrates severely reduced LV systolic function with an estimated left ventricular ejection fraction of 20- 25%. Recommendations: * Lasix 40mg IV x 1 now. * Maintain negative fluid balance. * Monitor fluid balance, daily weight, GFR, and electrolytes. * Discontinue carvedilol in favor of Toprol-XL 25 mg twice daily. * Continue anticoagulation with apixaban. * Wean supplemental oxygen as tolerated. * Goal room air oxygen saturation 85% or greater. * Antibiotics as per internal medicine. * Case discussed with adult congenital heart disease specialist at [facility]. Naresh Miller DO, [facility] I spent a total of 50 minutes on the date of service in preparation, delivery, and documentation of the care provided to this patient, excluding any time spent in the performance of separately billed services. History of Present Illness Reason for Consultation: Atrial fibrillation with RVR; Congenital heart disease Requesting Physician: [facility] Hospitalist Attending Physician: Dr. Miller History of Present Illness Patient is a complex 34 year old male who complex cardiac history, followed by Adult Congenital Cardiology clinic at [facility], and well known to Dr Pavon. History includes: 1. Tricuspid valve atresia s/p fontan procedure 2. Congenital aortic insufficiency 3. history of liver disease with fatty liver 4. Atrial flutter with RVR, diagnosed in Dec 2023. S/p CV- started on Eliquis and carvedilol 5. history of acute respiratory failure at time of afib RVR - requiring IV diuresis 6. Dilated LV noted on echo in Mar 2023 with preserved EF 7. Intellectual disability 8. Obesity 9. Probable MELLISA Patient admitted to [facility] after suffering a mechanical fall injuring his knee wiht large laceration. He denies getting lightheaded or dizzy with the fall. Upon arrival to the ER, patient was also found to have afib RVR with rates in the 160's. BP was low in the 80-90's and ER physician contacted his cardiology provider at [facility] who recommended cardioversion. Patient was sedated and underwent DCCV with successful buddhist of NSR in the ER. Patient was also found to be mildly hypoxic, started on supplemental O2. He was also noted to have GENA with creatinine of 2.1 and hyperkalemia with potassium of 5.2. Patient reports compliance with oral medications. He takes furosemide daily. He admits to worsening LE edema over the last few months. He has not been weighing himself. He denies recent dizziness or lightheadedness. No sense of palpitations. no chest pain. He was unaware of afib at time of admission. Unsure of duration or if this was related to his fall. He required suturing of his left knee. Now wrapped. Allergies Allergy/AdvReac Type Severity Reaction Status Date / Time acetaminophen AdvReac Unknown AVOIDS D/T Verified 09/01/24 02:23 CIRRHOSIS OF LIVER Home Medications Medication Instructions Recorded Confirmed Type apixaban 5 mg tablet (Eliquis) 5 mg PO BID 09/01/24 09/01/24 History betamethasone dipropionate 0.05 % 1 applic topical DIRECTED 09/01/24 09/01/24 History topical cream carvedilol 6.25 mg tablet 6.25 mg PO BID 09/01/24 09/01/24 History furosemide 40 mg tablet 40 mg PO DAILY 09/01/24 09/01/24 History lisinopril 20 mg tablet 20 mg PO DAILY 09/01/24 09/01/24 History montelukast 10 mg tablet 10 mg PO DAILY 09/01/24 09/01/24 History omeprazole 20 mg capsule,delayed 20 mg PO BID 09/01/24 09/01/24 History release sertraline 100 mg tablet 100 mg PO DAILY 09/01/24 09/01/24 History trazodone 50 mg tablet 50 mg PO HS 09/01/24 09/01/24 History Patient History Social History Smoking Status: Current every day smoker Tobacco Type: Smokeless Tobacco (Dip or Chew) Hx Alcohol Use: No Hx Substance Use: No Preferred Language: Congolese Utility Agent Required: No Beliefs That Will Affect Care: None Current Living Situation: Parent Other Information That Helps Us Care for You: No Feels Safe at Home: Yes Safety Concerns: Feels Safe At This Time Assistive Devices: None Review of Systems Review of Systems: All systems reviewed & are unremarkable except as noted in HPI & below Physical Exam Constitutional: WD/WN, vitals as above + obese; no acute distress Neck: + thick neck Respiratory: no labored breathing Auscultation: + diminished lung sounds; no crackles and no rales Cardiovascular: Rate/Rhythm: regular rate and regular rhythm Heart Sounds: no murmur (No audible murmur, distant heart sounds) Vessels: no JVD Extremities: + edema (2+ Le edema b/l; Left knee wrapped) Gastrointestinal (Abdomen): normal bowel sounds, soft, nontender, no hepatosplenomegaly Neurologic: PERRL, EOMI, accommodation nl, no face palsy, no dysarthria Psychiatric: A+Ox3, euthymic affect Results & Data Vital Signs (Past 12 Hours) Vital Signs Temp Pulse Pulse Resp BP BP Pulse Ox 09/01/24 11:03 09/01/24 09:13 36.6 C 105 H 95/63 L 94 09/01/24 08:30 09/01/24 08:23 93 09/01/24 08:00 92/62 L 09/01/24 07:51 102 H 95 09/01/24 07:42 99 H 94 09/01/24 07:30 91/64 L 09/01/24 07:00 103/74 09/01/24 06:59 100/72 09/01/24 06:53 88/65 L 09/01/24 06:51 100 H 09/01/24 06:48 93 H 95 09/01/24 06:45 86/67 L 09/01/24 06:30 92 H 20 95/68 L 95 09/01/24 06:04 95 H 18 99/71 L 94 09/01/24 06:00 89 18 95/60 L 94 09/01/24 05:55 90 20 96/70 L 95 09/01/24 05:50 85 20 99/65 L 98 09/01/24 05:45 83 20 101/65 96 09/01/24 05:40 74 20 106/58 L 95 09/01/24 05:35 72 16 94/75 L 95 09/01/24 05:32 67 09/01/24 05:30 167 H 16 98/78 L 96 09/01/24 05:25 140 H 18 110/70 98 09/01/24 05:18 95 09/01/24 05:03 150 H 09/01/24 05:00 164 H 18 95/73 L 94 09/01/24 04:50 152 H 20 116/87 93 09/01/24 04:40 168 H 22 91/68 L 94 09/01/24 04:20 159 H 18 92/68 L 91 09/01/24 04:11 151 H 21 89/66 L 92 09/01/24 04:00 158 H 18 84/66 L 93 09/01/24 03:51 160 H 21 84/65 L 93 09/01/24 03:40 151 H 22 89/69 L 93 09/01/24 03:30 162 H 20 94/66 L 93 09/01/24 03:25 156 H 19 106/68 93 09/01/24 03:17 152 H 19 92/66 L 92 09/01/24 03:17 160 H 20 92/66 L 93 09/01/24 03:00 164 H 20 89/69 L 93 09/01/24 02:55 156 H 20 97/70 L 94 09/01/24 02:43 160 H 20 90/73 L 91 09/01/24 02:00 160 H 20 103/79 91 09/01/24 01:30 164 H 30 H 100/70 90 09/01/24 01:03 148 H 09/01/24 01:02 168 H 24 109/85 90 09/01/24 00:50 35.9 C L 154 H 16 106/72 85 L O2 Del Method O2 Flow Rate 09/01/24 11:03 Nasal Cannula 2 09/01/24 09:13 Nasal Cannula 2 09/01/24 08:30 Nasal Cannula 3 09/01/24 08:23 Nasal Cannula 3 09/01/24 08:00 09/01/24 07:51 Nasal Cannula 4 09/01/24 07:42 Nasal Cannula 4 09/01/24 07:30 09/01/24 07:00 09/01/24 06:59 09/01/24 06:53 09/01/24 06:51 09/01/24 06:48 Nasal Cannula 4 09/01/24 06:45 09/01/24 06:30 09/01/24 06:04 Room Air 4 09/01/24 06:00 Nasal Cannula 4 09/01/24 05:55 Nasal Cannula 4 09/01/24 05:50 Nasal Cannula 4 09/01/24 05:45 Non-rebreather 15 09/01/24 05:40 Non-rebreather 15 09/01/24 05:35 Non-rebreather 15 09/01/24 05:32 09/01/24 05:30 Non-rebreather 15 09/01/24 05:25 Non-rebreather 15 09/01/24 05:18 Non-rebreather 15 09/01/24 05:03 09/01/24 05:00 Nasal Cannula 4 09/01/24 04:50 Nasal Cannula 4 09/01/24 04:40 Nasal Cannula 4 09/01/24 04:20 Nasal Cannula 4 09/01/24 04:11 Nasal Cannula 4 09/01/24 04:00 Room Air 09/01/24 03:51 Nasal Cannula 4 09/01/24 03:40 Nasal Cannula 4 09/01/24 03:30 Nasal Cannula 4 09/01/24 03:25 Nasal Cannula 4 09/01/24 03:17 Nasal Cannula 4 09/01/24 03:17 Room Air 09/01/24 03:00 Nasal Cannula 4 09/01/24 02:55 Nasal Cannula 4 09/01/24 02:43 Nasal Cannula 4 09/01/24 02:00 Nasal Cannula 4 09/01/24 01:30 09/01/24 01:03 09/01/24 01:02 Nasal Cannula 4 09/01/24 00:50 Room Air Laboratory Results Cardiac Enzymes 09/01/24 Range/Units 01:10 AST 22 (13-39) U/L Coagulation 09/01/24 Range/Units 01:10 PT 12.5 H (9.0-12.0) Seconds CBC 09/01/24 Range/Units 01:10 WBC 5.90 (4.8-10.8) K/ul RBC 4.47 L (4.70-6.10) M/uL Hgb 14.4 (14.0-18.0) g/dl Hct 44.2 (42.0-52.0) % Plt Count 89 L (130-400) K/uL Neut # (Auto) 3.95 (1.40-6.50) K/uL Lymph # (Auto) 1.02 L (1.20-3.40) K/uL Churchill # (Auto) 0.68 H (0.11-0.59) K/uL Eos # (Auto) 0.20 (0.00-0.50) K/uL Baso # (Auto) 0.03 (0.00-0.20) K/uL Comprehensive Metabolic Panel 09/01/24 Range/Units 01:10 Sodium 133 L (136-145) mmol/L Potassium 5.2 H (3.5-5.1) mmol/L Chloride 104 (98-107) mmol/L Carbon Dioxide 20 L (21-32) mmol/L BUN 51 H (6-23) mg/dl Creatinine 2.12 H (0.6-1.4) mg/dl Glucose 115 H (70-99(Fasting)) mg/dl Calcium 9.2 (8.6-10.3) mg/dl AST 22 (13-39) U/L ALT 14 (7-52) U/L Alkaline Phosphatase 84 (34-104) U/L Total Protein 7.3 (6.0-8.3) gm/dl Albumin 4.1 (3.4-5.0) gm/dl Intake and Output 08/31/24 09/01/24 09/01/24 22:59 06:59 14:59 Intake Total 1015.167 / 1015.167 670.833 / 670.833 Balance 1015.167 / 1015.167 670.833 / 670.833 Intake: IV 1015.167 / 1015.167 670.833 / 670.833 Sodium Chloride 0.9% 1,000 ml @ 620.833 / 620.833 125 mls/hr IV .Q8H [facility] Rx#: [id number] Sodium Chloride 0.9% 500 ml @ 1000 / 1000 999 mls/hr IV .Q31M [facility] Rx#: [id number] cefTRIAXone SODIUM 2,000 mg In 50 / 50 50 ml @ 100 mls/hr IV ONE ONE Rx#:[id number] dilTIAZem HCL 125 mg In 15.167 / 15.167 0 / 0 Dextrose 5% 100 ml @ 5 MG/HR 5 mls/hr IV .Q24H [facility] Rx#: [id number] Other: Weight 118.8 kg 118.8 kg Weight Measurement Method Chair Scale Chair Scale Patient Weight 09/02/24 06:59 Weight 118.8 kg Diagnostic Findings Telemetry reviewed: Currently appears NSR around 100 bmp. EKG on arrival this morning: Atrial fib with RVR at [address]/T wave abnormality in lateral leads. Old anteroseptal infarct Knee X-Ray 09/01/24 01:19 IMRESSION: 1. No acute fractures or dislocations. 2. Mild joint effusion and anterior soft tissue edema. New findings. 3. Early degenerative changes of knee joint. Unchanged. 4. Stable likely post-surgical radiolucent areas with surrounding sclerosis in the distal femur and proximal tibia, and an unchanged metallic foreign body in the lateral distal femur; correlate with prior surgical history. Disclaimer: A subtle bone abnormality or fracture may not be readily apparent on X-rays, thus clinical correlation and further imaging including follow-up CT, MRI, or follow-up X-rays are advised as needed. Electronically signed by Paul Greenwood 09-01-2024 02:[address] 09/01/24 02:08 IMPRESSION: 1. No acute fracture or dislocation. 2. Anterior soft tissue edema with subcutaneous air, likely related to soft tissue lacerations. 3. Mild knee joint effusion. 4. Early degenerative changes of the knee joint, with mild joint space narrowing and osteophyte formation. 5. Post-surgical changes in the distal femur and proximal tibia, with a stable metallic foreign body in the lateral distal femur. Correlate with surgical history. 6. Intra-articular loose bodies measuring up to 4 mm. 7. Findings correlate with prior recent x-ray knee. Electronically signed by Paul Greenwood 09-01-2024 03:33 AM Chest X-Ray 09/01/24 04:01 IMPRESSION: 1. Heart size is prominent. 2. Hyperdensity (possibly clips) is projecting over the left mediastinum pleural border. Needs clinical/history correlation. 3. Unremarkable rest of the study. Cervical Spine CT 09/01/24 05:50 IMPRESSION: 1.No acute fracture or subluxation in the cervical spine. 2.Mild irregularity is noted involving superior endplate of C4 vertebra.- possibility of degenerative changes likely Head CT 09/01/24 05:50 IMPRESSION: 1. No evidence of acute intracranial abnormality is demonstrated Electronically signed by Tristian Goel 09-01-2024 06:57 AM Outpatient data reviewed: Echo in Dec 2023 at [facility] Interpretation Summary Tricuspid atresia S/P total cavopulmonary anastomosis (Fontan) with lateral tunnel, nonfenestrated. Study limited by poor acoustic windows There is severe left ventricular dilatation. There is no concentric left ventricular hypertrophy. The qualitative LV ejection fraction is 55-59% (normal). The mitral E/E' lateral is 6.9 consistent with normal left ventricular diastolic function. The superior limb of the Fontan circuit is patent . There is a trivial pericardial effusion. Medications Administered Current Inpatient Medications Apixaban (Apixaban 5 Mg Tablet) 5 mg PO BID BORIS Stop: 10/01/24 08:59 Last Admin: 09/01/24 09:51 Dose: 5 mg Carvedilol (Carvedilol 6.25 Mg Tab) 6.25 mg PO BID BORIS Stop: 10/01/24 08:59 Last Admin: 09/01/24 09:51 Dose: 6.25 mg Ceftriaxone Sodium (Rocephin) 2,000 mg in 50 mls @ 100 mls/hr IV Q24H BORIS Stop: 09/09/24 08:59 Sodium Chloride (Nss) 1,000 mls @ 100 mls/hr IV .Q10H BORIS Stop: 09/04/24 08:51 Last Admin: 09/01/24 09:51 Dose: 100 mls/hr Montelukast Sodium (Montelukast Sodium 10 Mg Tablet) 10 mg PO DAILY BORIS Stop: 10/01/24 08:59 Last Admin: 09/01/24 09:51 Dose: 10 mg Nitroglycerin (Nitroglycerin Sl 0.4 Mg/Tab Tab) 0.4 mg SL Q5M PRN PRN Reason: Chest Pain Stop: 10/01/24 08:51 Pantoprazole Sodium (Pantoprazole 40 Mg Tab) 40 mg PO BID BORIS Stop: 10/01/24 08:59 Last Admin: 09/01/24 09:51 Dose: 40 mg Polyethylene Glycol (Polyethylene (Miralax) 17 Gm Pack) 17 gm PO DAILY PRN PRN Reason: Constipation Stop: 10/01/24 08:51 Sertraline HCl (Sertraline Hcl 100 Mg Tablet) 100 mg PO DAILY BORIS Stop: 10/01/24 08:59 Last Admin: 09/01/24 09:51 Dose: 100 mg Trazodone HCl (Trazodone Hcl 50 Mg Tab) 50 mg PO HS BORIS Stop: 10/01/24 20:59 PG Care Time/CCT Total # of Minutes Spent Total Time Spent with Patient: Total time spent is greater than 50% in coordination of care (as documented) at patient's floor/unit and/or counseling patient: 70 Coding Level of Care Code 60906 INT INP/OBS CARE 3/75MIN Diagnoses Atrial fibrillation with rapid ventricular response I48.91 Congenital heart disease Q24.9 Status post Fontan procedure Z87.74 GNEA (acute kidney injury) N17.9
--- NOTE | 2024-09-01 11:52 | Electrocardiogram Report ---
Test Reason : Blood Pressure : */* mmHG Vent. Rate : 161 BPM Atrial Rate : * BPM P-R Int : * ms QRS Dur : 94 ms QT Int : 274 ms P-R-T Axes : * -31 152 degrees QTcB Int : 448 ms Atrial fibrillation with rapid ventricular response Left axis deviation Low voltage QRS Inferior infarct , age undetermined Possible Anterolateral infarct , age undetermined Abnormal ECG When compared with ECG of 08-Aug-2017 16:28, Significant changes have occurred Confirmed by Danny Ponce ([id number]) on 09/01/2024 11:52:37 AM Referred By: REFERRED SELF Confirmed By: Danny Ponce
--- NOTE | 2024-09-01 12:05 | Electrocardiogram Report ---
Test Reason : Blood Pressure : */* mmHG Vent. Rate : 90 BPM Atrial Rate : 90 BPM P-R Int : 158 ms QRS Dur : 90 ms QT Int : 384 ms P-R-T Axes : 7 -29 -37 degrees QTcB Int : 469 ms Sinus rhythm with Premature atrial complexes Low voltage QRS Possible Anterolateral infarct (cited on or before 01-Sep-2024) Abnormal ECG When compared with ECG of 01-Sep-2024 05:37, (unconfirmed) Previous ECG has undetermined rhythm, needs review QT has shortened Confirmed by Danny Ponce ([id number]) on 09/01/2024 12:04:55 PM Referred By: REFERRED SELF Confirmed By: Danny Ponce
[2024-09-01 13:27] LABS: Anion Gap 9.0 (3-11); Blood Urea Nitrogen 46.0 mg/dl (6-23); Calcium 8.5 mg/dl (8.6-10.3); Carbon Dioxide 19.0 mmol/L (21-32); Chloride 106.0 mmol/L (98-107); Creatinine Clr Calc Pharmacy 74.3 ml/min; Glucose 108.0 mg/dl (70-99(Fasting)); Potassium 5.4 mmol/L (3.5-5.1); Sodium 134.0 mmol/L (136-145)
--- NOTE | 2024-09-01 15:23 | Hospitalist Progress Note ---
Date of Service September 01, 2024 Assessment & Plan (1) Rapid atrial fibrillation: Plan: 34-year-old male with past medical history significant for congenital aortic valve insufficiency, tricuspid atresia status post Fontan's procedure, liver disease after Fontan procedure, liver lesion, cardiac cirrhosis, mild intellectual disability, obesity, Sino atrial node dysfunction, history of systolic CHF, thrombocytopenia, mood disorder, a flutter lives at home with his mother presents with fall and found to have left knee laceration and also rapid A-fib. Patient had a fall accidentally after he tripped and fell going up the steps . Seems had a large amount of bleeding and family tried to place a dressing on. In triage patient found to have have tachycardia as well as hypoxia. EKG showed rapid A-fib. ER call his dam tender assistant in [place] and was advised for cardioversion. Patient is status post cardioversion and currently in sinus rhythm. His labs showed GENA with creatinine of 2.1 and K of 5.2. Because of his abnormal labs [facility] cardiology advised for observation in the hospital. Patient is currently getting sutures to his left knee. For last couple of days patient was having nausea and vomiting and which is improving. As per his mother did not eating anything after 2 PM yesterday. Patient denies any dizziness or chest pain or palpitations prior to fall. No shortness of breath. No cough. No fevers. No diarrhea. No abdominal pain. No fevers. Currently resting comfortably. Patient in December 2023 was transferred to [facility] from outside hospital for acute hypoxemic respiratory failure. He was noted to be in a flutter with heart rates in 220s. He was cardioverted with 100 J. He required oxygen 4 L. Echo showed EF of 50% but poor windows. At that time his total bilirubin was 5. Chest x-ray showed pulm edema. Patient was treated with IV diuresis at that time and was transferred for [place] for evaluation by pediatric cardiology. As per the [facility] notes patient seems to be out with friends in [place] when some of his friends noticed his lips were blue. Patient also started to have palpitations which prompted him to go to the ER. Upon transfer to [place] he was was saturating okay on 3 L and heart rates were okay. At [place] received IV diuresis and was seen by peds cardiology, EP and hepatology due to his complex history of tricuspid atresia status post Fontan procedure with cardiac cirrhosis sequelae. At [place] did not had any more atrial flutter or A-fib. His thoracic echo was done to evaluate Fontan pathway but it was of suboptimal and was thought that he needed congenital cardiac MRI done as outpatient. Also asked for sleep apnea referral and was discharged on Eliquis. Since he was starting Eliquis, aspirin was stopped. His Lasix was increased from 20 to 40 mg daily. And was also started on Coreg. Advised for Zio patch and follow-up with pediatric cardiology. Follow-up with pediatric Cardiology in March 2024 and there is plan for stress test and probably MRI. Rapid atrial fibrillation Status post cardioversion as per recommendation by pediatric cardiology [place] Currently in sinus rhythm. History of sinoatrial node dysfunction Continue home Coreg with holding parameters On Eliquis Will follow echo- echo reviewed by dam tender assistant Consult cardiology- appreciate input and recommendation Close monitoring telemetry Has been feeling better without any palpitation, chest pain or shortness of breath Hypoxia Requiring oxygen Chest x-ray seems okay History of respiratory requiring oxygen because of pulmonary edema he December 2023 He has been getting 3 L to maintain saturation Advised to keep the saturation more than 85% and wean off oxygen as much as possible to maintain that Fall Left knee laceration. Getting sutures in the ER CT head, CT cervical spine, unremarkable chest x-ray no acute findings Left knee CT scan. No acute fractures or dislocation. Anterior soft tissue edema with subcutaneous air related to soft tissue lacerations seen. Metallic foreign body in the lateral aspect distal femur stable in appearance PT OT when stable Pain control Empiric Rocephin for the laceration Will consult wound care History of systolic CHF Will follow echo Holding Lasix for GENA Will stop any IV fluid and start Lasix 40 mg IV daily as per recommendation from dam tender assistant in [place] Nausea and vomiting For last couple of days Improving Will monitor GENA Baseline creatinine around 1 Today creatinine of 2.1 Possibly from nausea and vomiting Holding Lasix and lisinopril Follow repeat labs- creatinine has been improving Hyperkalemia Potassium 5.2 Holding lisinopril Follow repeat labs- will recheck PRP at 6 PM Cardiac cirrhosis Thrombocytopenia Total bilirubin 2.5, AST 22, ALT 14, alkaline phos is 84 Platelets 89 around baseline We will follow repeat labs Cardiology recommended follow-up with hepatology Congenital aortic valve insufficiency Tricuspid atresia Status post Fontan's procedure Follows with cardiology Significant ventricular dilatation on echo Plan for stress test and MRI Hypertension Continue Coreg with holding parameters Holding lisinopril and Lasix We will monitor Mood disorder On Zoloft and trazodone GERD On omeprazole DVT prophylaxis On Eliquis. Monitor for any bleeding Disposition Telemetry Full code. (2) GENA (acute kidney injury): (3) Status post Fontan procedure: (4) Congenital heart disease: (5) Laceration of knee, left: (6) Fall: Admission and Anticipated Discharge Date Admission Date: September 01, 2024 Subjective 09/01/2024 The patient was seen and examined in telemetry unit He was admitted with fall with left knee laceration and noted to have atrial fibrillation with RVR on admission Has significant heart surgery with Fontan's procedure He has been feeling much better since admission and denies any chest pain, palpitation or shortness of breath at rest Review of Systems Review of Systems: all systems reviewed and are unremarkable except as noted below Physical Exam Physical Exam: Lying in bed without any acute distress Constitutional: well developed, well nourished, + ill appearing and + obese Eyes: PERRL, conjunctivae normal, anicteric sclerae ENMT: external ear and nose normal, oropharynx normal Neck: trachea midline, no thyromegaly Respiratory: no respiratory distress Auscultation: + diminished lung sounds and + crackles ( occasional crackles at the bases) Cardiovascular: Rate/Rhythm: + irregularly irregular Heart Sounds: normal S1, normal S2 and + murmur Extremities: + edema ( 1+ edema bilaterally) Gastrointestinal (Abdomen): Inspection/Auscultation: normal bowel sounds; abdomen not distended Percussion/Palpation: abdomen soft; abdomen nontender Musculoskeletal: no acute arthritis involving any of the joint Neurologic: normal touch/pain/proprioception and moves all extremities; no focal motor deficits Lymphatic: no cervical or axillary lymphadenopathy Results & Data Results & Data Vital Signs (Past 12 Hours) Vital Signs Temp Pulse Pulse Resp BP BP Pulse Ox 09/01/24 13:02 36.4 C L 89 19 97/62 L 92 09/01/24 11:03 09/01/24 09:13 36.6 C 105 H 95/63 L 94 09/01/24 08:30 09/01/24 08:23 93 09/01/24 08:00 92/62 L 09/01/24 07:51 102 H 95 09/01/24 07:42 99 H 94 09/01/24 07:30 91/64 L 09/01/24 07:00 103/74 09/01/24 06:59 100/72 09/01/24 06:53 88/65 L 09/01/24 06:51 100 H 09/01/24 06:48 93 H 95 09/01/24 06:45 86/67 L 09/01/24 06:30 92 H 20 95/68 L 95 09/01/24 06:04 95 H 18 99/71 L 94 09/01/24 06:00 89 18 95/60 L 94 09/01/24 05:55 90 20 96/70 L 95 09/01/24 05:50 85 20 99/65 L 98 09/01/24 05:45 83 20 101/65 96 09/01/24 05:40 74 20 106/58 L 95 09/01/24 05:35 72 16 94/75 L 95 09/01/24 05:32 67 09/01/24 05:30 167 H 16 98/78 L 96 09/01/24 05:25 140 H 18 110/70 98 09/01/24 05:18 95 09/01/24 05:03 150 H 09/01/24 05:00 164 H 18 95/73 L 94 09/01/24 04:50 152 H 20 116/87 93 09/01/24 04:40 168 H 22 91/68 L 94 09/01/24 04:20 159 H 18 92/68 L 91 09/01/24 04:11 151 H 21 89/66 L 92 09/01/24 04:00 158 H 18 84/66 L 93 09/01/24 03:51 160 H 21 84/65 L 93 09/01/24 03:40 151 H 22 89/69 L 93 09/01/24 03:30 162 H 20 94/66 L 93 09/01/24 03:25 156 H 19 106/68 93 O2 Del Method O2 Flow Rate 09/01/24 13:02 Nasal Cannula 3 09/01/24 11:03 Nasal Cannula 2 09/01/24 09:13 Nasal Cannula 2 09/01/24 08:30 Nasal Cannula 3 09/01/24 08:23 Nasal Cannula 3 09/01/24 08:00 07/18/25 07:51 Nasal Cannula 4 09/01/24 07:42 Nasal Cannula 4 09/01/24 07:30 09/01/24 07:00 09/01/24 06:59 09/01/24 06:53 09/01/24 06:51 09/01/24 06:48 Nasal Cannula 4 09/01/24 06:45 09/01/24 06:30 09/01/24 06:04 Room Air 4 09/01/24 06:00 Nasal Cannula 4 09/01/24 05:55 Nasal Cannula 4 09/01/24 05:50 Nasal Cannula 4 09/01/24 05:45 Non-rebreather 15 09/01/24 05:40 Non-rebreather 15 09/01/24 05:35 Non-rebreather 15 09/01/24 05:32 09/01/24 05:30 Non-rebreather 15 09/01/24 05:25 Non-rebreather 15 09/01/24 05:18 Non-rebreather 15 09/01/24 05:03 09/01/24 05:00 Nasal Cannula 4 09/01/24 04:50 Nasal Cannula 4 09/01/24 04:40 Nasal Cannula 4 09/01/24 04:20 Nasal Cannula 4 09/01/24 04:11 Nasal Cannula 4 09/01/24 04:00 Room Air 09/01/24 03:51 Nasal Cannula 4 09/01/24 03:40 Nasal Cannula 4 09/01/24 03:30 Nasal Cannula 4 09/01/24 03:25 Nasal Cannula 4 Laboratory Results Short CBC 09/01/24 Range/Units 01:10 WBC 5.90 (4.8-10.8) K/ul Hgb 14.4 (14.0-18.0) g/dl Hct 44.2 (42.0-52.0) % Plt Count 89 L (130-400) K/uL BMP 09/01/24 09/01/24 01:10 11:49 Sodium 133 L 134 L Potassium 5.2 H 5.4 H Chloride 104 106 Carbon Dioxide 20 L 19 L BUN 51 H 46 H Creatinine 2.12 H 1.82 H D Glucose 115 H 108 H Calcium 9.2 8.5 L Liver Function 09/01/24 Range/Units 01:10 Total Bilirubin 2.5 H (0.2-1.0) mg/dl AST 22 (13-39) U/L ALT 14 (7-52) U/L Alkaline Phosphatase 84 (34-104) U/L Albumin 4.1 (3.4-5.0) gm/dl Medications Administered Current Inpatient Medications Apixaban (Apixaban 5 Mg Tablet) 5 mg PO BID BORIS Stop: 10/01/24 08:59 Last Admin: 09/01/24 09:51 Dose: 5 mg Ceftriaxone Sodium (Rocephin) 2,000 mg in 50 mls @ 100 mls/hr IV Q24H BORIS Stop: 09/09/24 08:59 Metoprolol Succinate (Metoprolol Succ 25mg Ext Rel Tab) 25 mg PO BID BORIS Stop: 10/01/24 20:59 Montelukast Sodium (Montelukast Sodium 10 Mg Tablet) 10 mg PO DAILY BORIS Stop: 10/01/24 08:59 Last Admin: 09/01/24 09:51 Dose: 10 mg Nitroglycerin (Nitroglycerin Sl 0.4 Mg/Tab Tab) 0.4 mg SL Q5M PRN PRN Reason: Chest Pain Stop: 10/01/24 08:51 Pantoprazole Sodium (Pantoprazole 40 Mg Tab) 40 mg PO BID BORIS Stop: 10/01/24 08:59 Last Admin: 09/01/24 09:51 Dose: 40 mg Polyethylene Glycol (Polyethylene (Miralax) 17 Gm Pack) 17 gm PO DAILY PRN PRN Reason: Constipation Stop: 10/01/24 08:51 Sertraline HCl (Sertraline Hcl 100 Mg Tablet) 100 mg PO DAILY BORIS Stop: 10/01/24 08:59 Last Admin: 09/01/24 09:51 Dose: 100 mg Trazodone HCl (Trazodone Hcl 50 Mg Tab) 50 mg PO HS BORIS Stop: 10/01/24 20:59
--- NOTE | 2024-09-01 16:09 | Communication Note ---
Date of Service: September 01, 2024 Please wean off Oxygen to keep O2 saturation >85%. Dr Ciro Alonzo
[2024-09-01] MEDS: FUROSEMIDE 40 MG/4 ML VIAL IV ONE (17:00)
[2024-09-01 18:15] LABS: Anion Gap 7.0 (3-11); Blood Urea Nitrogen 47.0 mg/dl (6-23); Calcium 8.4 mg/dl (8.6-10.3); Carbon Dioxide 20.0 mmol/L (21-32); Chloride 104.0 mmol/L (98-107); Creatinine Clr Calc Pharmacy 73.1 ml/min; Glucose 110.0 mg/dl (70-99(Fasting)); Potassium 5.2 mmol/L (3.5-5.1); Sodium 131.0 mmol/L (136-145)
[2024-09-01] MEDS: METOPROLOL SUCC 25MG EXT REL TAB PO SCH (21:11)
[2024-09-02 05:42] LABS: Hematocrit (blood only) 36.4 % (42.0-52.0); Hemoglobin 12.0 g/dl (14.0-18.0); Mean Corpuscular Hemoglobin 32.5 pg (25.0-34.0); Mean Corpuscular Volume 98.6 fL (80.0-100.0); Platelet Count 69 K/uL (130-400); RDW Standard Deviation 53.8 fL (36.4-46.3); Red Blood Count 3.69 M/uL (4.70-6.10); White Blood Count 6.93 K/ul (4.8-10.8)
[2024-09-02 05:56] LABS: Alanine Aminotransferase 11.0 U/L (7-52); Alkaline Phosphatase 74.0 U/L (34-104); Bilirubin,Total 2.8 mg/dl (0.2-1.0); Total Protein 6.3 gm/dl (6.0-8.3)
[2024-09-02 05:58] LABS: Immature Granulocytes # (auto) 0.02 K/uL (0.01-0.20); Immature Granulocytes % (auto) 0.3 %
[2024-09-02] MEDS: MoRPHine SULFATE 4 MG/ML 1 ML CARP\\VIAL IV STA (06:31)
[2024-09-02 08:03] LABS: Appearance Urine Clear (Clear); Bacteria Urine Automated None Seen (None Seen); Cast Urine Automated >20 /lpf (0-2); Epithelial Cell Urine Auto 0-2 /hpf (0-2); Glucose Urine UA Negative (Negative); RBC Urine Automated 0-2 /hpf (0-2); WBC Urine Automated 0-5 /hpf (0-5)
[2024-09-02] MEDS: cefTRIAXone SODIUM 2,000 MG/50 ML BAG IV SCH (08:34)
[2024-09-02 11:40] LABS: Anion Gap 6.0 (3-11); Blood Urea Nitrogen 52.0 mg/dl (6-23); Calcium 8.3 mg/dl (8.6-10.3); Carbon Dioxide 21.0 mmol/L (21-32); Chloride 103.0 mmol/L (98-107); Creatinine Clr Calc Pharmacy 52.2 ml/min; Glucose 91.0 mg/dl (70-99(Fasting)); Magnesium 2.1 mg/dl (1.7-2.4); Potassium 5.4 mmol/L (3.5-5.1); Sodium 130.0 mmol/L (136-145)
--- NOTE | 2024-09-02 11:56 | Cardiology Progress Note ---
<Statement entered by Brittany George, DO - 09/02/24 16:07> I have reviewed the advanced practitioner's documentation and agree with the plan of care. I accept the responsibility for the associated risk. Pt seen in cardiology f/u due to AF with RVR s/p DCCV he remains in SR today His kidney function is up from getting IV lasix yesterday no more IV diuretics and hold lisinopril Continue toprol and eliquis Date of Service September 02, 2024 Assessment & Plan (1) Atrial fibrillation with rapid ventricular response: (2) Congenital heart disease: (3) Status post Fontan procedure: (4) GENA (acute kidney injury): Plan - Heart rate currently well-controlled - Noted to be persistently hypotensive - Renal function has further worsened with the GENA limiting further diuresis - Does appear relatively euvolemic on exam - Potassium has increased to 5.4, creatinine increased to 2.5 - Continue apixaban and Toprol - Given his GENA and hypotension will need to continue to hold lisinopril - Hopefully can wean him off supplemental oxygen today and continue to monitor how he is feeling overnight -If renal function improves and he is feeling better could possibly consider discharge tomorrow Case discussed with Dr. George. Please see attestation for additional recommendations. SARTHAK Sherman Department of Cardiology, [facility] This chart was completed in part utilizing Speech Voice Recognition Software. Grammatical errors, random word insertions, pronoun errors, and incomplete sentences are an occasional consequence of this system due to software limitations, ambient noise, and hardware issues. Any formal questions or concerns about the content, text, or information contained within the body of this dictation should be directly addressed to the provider for clarification. Admission and Anticipated Discharge Date Admission Date: September 01, 2024 Subjective 34-year-old male seen in cardiology follow-up in regards to cardiomyopathy, A- fib RVR, hypotension. Reports feeling better today after receiving IV diuresis yesterday. He has been maintaining sinus rhythm with occasional PACs since the cardioversion yesterday. Still requiring supplemental oxygen to maintain O2 sats. He does have hypotension but denies lightheadedness or dizziness. Review of Systems Review of Systems: All systems reviewed & are unremarkable except as noted in Subjective Physical Exam Constitutional: WD/WN, vitals as above well developed and well nourished; no acute distress Eyes: PERRL, conjunctivae normal, anicteric sclerae Neck: trachea midline, no thyromegaly Respiratory: normal respiratory effort, lungs clear to auscultation Cardiovascular: Rate/Rhythm: regular rate and regular rhythm Vessels: no JVD and no carotid bruit Gastrointestinal (Abdomen): normal bowel sounds, soft, nontender, no hepatosplenomegaly Skin: no rashes, warm and dry Psychiatric: A+Ox3, euthymic affect Results & Data Vital Signs (Past 12 Hours) Vital Signs Temp Pulse Resp BP BP Pulse Ox O2 Del Method 09/02/24 11:36 36.3 C L 82 18 96/65 L 91 Room Air 09/02/24 11:16 Nasal Cannula 09/02/24 07:58 36.6 C 88 20 89/55 L 81/52 L 91 Nasal Cannula 09/02/24 04:27 36.9 C 85 16 96/92 L 90 Nasal Cannula O2 Flow Rate 09/02/24 11:36 09/02/24 11:16 2 09/02/24 07:58 4 09/02/24 04:27 3.5 Laboratory Results Cardiac Enzymes 09/01/24 09/01/24 09/02/24 Range/Units 11:49 17:38 05:27 AST 16 (13-39) U/L Troponin I High Sens 3.9 4.2 (0-20) pg/ml CBC 09/02/24 Range/Units 05:27 WBC 6.93 (4.8-10.8) K/ul RBC 3.69 L (4.70-6.10) M/uL Hgb 12.0 L (14.0-18.0) g/dl Hct 36.4 L (42.0-52.0) % Plt Count 69 L (130-400) K/uL Neut # (Auto) 5.12 (1.40-6.50) K/uL Lymph # (Auto) 0.69 L (1.20-3.40) K/uL [place] # (Auto) 1.01 H (0.11-0.59) K/uL Eos # (Auto) 0.08 (0.00-0.50) K/uL Baso # (Auto) 0.01 (0.00-0.20) K/uL Comprehensive Metabolic Panel 09/01/24 09/01/24 09/02/24 Range/Units 11:49 17:38 05:27 Sodium 134 L 131 L (136-145) mmol/L Potassium 5.4 H 5.2 H (3.5-5.1) mmol/L Chloride 106 104 (98-107) mmol/L Carbon Dioxide 19 L 20 L (21-32) mmol/L BUN 46 H 47 H (6-23) mg/dl Creatinine 1.82 H D 1.85 H (0.6-1.4) mg/dl Glucose 108 H 110 H (70-99(Fasting)) mg/dl Calcium 8.5 L 8.4 L (8.6-10.3) mg/dl Direct Bilirubin 0.9 H (0-0.2) mg/dl AST 16 (13-39) U/L ALT 11 (7-52) U/L Alkaline Phosphatase 74 (34-104) U/L Total Protein 6.3 (6.0-8.3) gm/dl Albumin 3.8 (3.4-5.0) gm/dl 09/02/24 Range/Units 10:58 Sodium 130 L (136-145) mmol/L Potassium 5.4 H (3.5-5.1) mmol/L Chloride 103 (98-107) mmol/L Carbon Dioxide 21 (21-32) mmol/L BUN 52 H (6-23) mg/dl Creatinine 2.59 H D (0.6-1.4) mg/dl Glucose 91 (70-99(Fasting)) mg/dl Calcium 8.3 L (8.6-10.3) mg/dl Direct Bilirubin (0-0.2) mg/dl AST (13-39) U/L ALT (7-52) U/L Alkaline Phosphatase (34-104) U/L Total Protein (6.0-8.3) gm/dl Albumin (3.4-5.0) gm/dl Intake and Output 09/01/24 09/02/24 09/02/24 22:59 06:59 14:59 Intake Total 840 / 2764.166 50 / 50 Output Total 550 / 1200 Balance 840 / 1564.166 -550 / 1564.166 50 / 50 Intake: IV 50 / 50 cefTRIAXone SODIUM 2,000 mg In 50 / 50 50 ml @ 100 mls/hr IV Q24H [facility] Rx#:[id number] Oral 840 / 1890 Output: Urine 550 / 1200 Diagnostic Findings Laboratory Results WBC 6.93 K/ul (4.8-10.8) 09/02/24 05:27 RBC 3.69 M/uL (4.70-6.10) L 09/02/24 05:27 Hgb 12.0 g/dl (14.0-18.0) L 09/02/24 05:27 Hct 36.4 % (42.0-52.0) L 09/02/24 05:27 MCV 98.6 fL (80.0-100.0) 09/02/24 05:27 MCH 32.5 pg (25.0-34.0) 09/02/24 05:27 MCHC 33.0 g/dL (32.0-36.0) 09/02/24 05:27 RDW Std Deviation 53.8 fL (36.4-46.3) H 09/02/24 05:27 RDW Coeff of Mary 14.9 % (11.5-14.5) H 09/02/24 05:27 Plt Count 69 K/uL (130-400) L 09/02/24 05:27 MPV 14.1 fL (9.4-12.4) H 09/02/24 05:27 Immature Gran % (Auto) 0.3 % 09/02/24 05:27 Neut % (Auto) 73.8 % 09/02/24 05:27 Lymph % (Auto) 10.0 % 09/02/24 05:27 [place] % (Auto) 14.6 % 09/02/24 05:27 Eos % (Auto) 1.2 % 09/02/24 05:27 Baso % (Auto) 0.1 % 09/02/24 05:27 Neut # (Auto) 5.12 K/uL (1.40-6.50) 09/02/24 05:27 Lymph # (Auto) 0.69 K/uL (1.20-3.40) L 09/02/24 05:27 [place] # (Auto) 1.01 K/uL (0.11-0.59) H 09/02/24 05:27 Eos # (Auto) 0.08 K/uL (0.00-0.50) 09/02/24 05:27 Baso # (Auto) 0.01 K/uL (0.00-0.20) 09/02/24 05:27 Immature Gran # (Auto) 0.02 K/uL (0.01-0.20) 09/02/24 05:27 Platelet Estimate Decreased (Normal) L 09/01/24 01:10 Echinocytes 1+ 09/01/24 01:10 PT 12.5 Seconds (9.0-12.0) H 09/01/24 01:10 INR 1.2 (0.9-1.1) H 09/01/24 01:10 Sodium 130 mmol/L (136-145) L 09/02/24 10:58 Potassium 5.4 mmol/L (3.5-5.1) H 09/02/24 10:58 Chloride 103 mmol/L (98-107) 09/02/24 10:58 Carbon Dioxide 21 mmol/L (21-32) 09/02/24 10:58 Anion Gap 6 (3-11) 09/02/24 10:58 BUN 52 mg/dl (6-23) H 09/02/24 10:58 Creatinine 2.59 mg/dl (0.6-1.4) H D 09/02/24 10:58 Est Cr Clr Drug Dosing 52.2 ml/min 09/02/24 10:58 eGFR 32.13 09/02/24 10:58 BUN/Creatinine Ratio 20.1 (10-20) H 09/02/24 10:58 Glucose 91 mg/dl (70-99(Fasting)) 09/02/24 10:58 Calcium 8.3 mg/dl (8.6-10.3) L 09/02/24 10:58 Magnesium 2.1 mg/dl (1.7-2.4) 09/02/24 10:58 Total Bilirubin 2.8 mg/dl (0.2-1.0) H 09/02/24 05:27 Direct Bilirubin 0.9 mg/dl (0-0.2) H 09/02/24 05:27 AST 16 U/L (13-39) 09/02/24 05:27 ALT 11 U/L (7-52) 09/02/24 05:27 Alkaline Phosphatase 74 U/L (34-104) 09/02/24 05:27 Troponin I High Sens 4.2 pg/ml (0-20) 09/01/24 17:38 Total Protein 6.3 gm/dl (6.0-8.3) 09/02/24 05:27 Albumin 3.8 gm/dl (3.4-5.0) 09/02/24 05:27 Globulin 3.2 gm/dl (2.5-4.0) 09/01/24 01:10 Albumin/Globulin Ratio 1.3 (0.9-2) 09/01/24 01:10 TSH 7.780 uIu/ml (0.300-4.500) H 09/01/24 01:10 Free T4 1.22 ng/dl (0.61-1.60) 09/01/24 01:10 Urine Color Dark Yellow 09/02/24 Unknown Urine Appearance Clear (Clear) 09/02/24 Unknown Urine pH 5.0 (4.5-7.5) 09/02/24 Unknown Ur Specific [place] 1.014 (1.000-1.030) 09/02/24 Unknown Urine Protein Trace (Negative) H 09/02/24 Unknown Urine Glucose (UA) Negative (Negative) 09/02/24 Unknown Urine Ketones Trace (Negative) H 09/02/24 Unknown Urine Blood Negative (Negative) 09/02/24 Unknown Urine Nitrite Negative (Negative) 09/02/24 Unknown Urine Bilirubin 1+ (Negative) H 09/02/24 Unknown Urine Urobilinogen Negative (Negative) 09/02/24 Unknown Ur Leukocyte Esterase Negative (Negative) 09/02/24 Unknown Urine WBC (Auto) 0-5 /hpf (0-5) 09/02/24 Unknown Urine RBC (Auto) 0-2 /hpf (0-2) 09/02/24 Unknown U Hyaline Cast (Auto) >20 /lpf (0-2) H 09/02/24 Unknown U Epithel Cells (Auto) 0-2 /hpf (0-2) 09/02/24 Unknown Urine Bacteria (Auto) None Seen (None Seen) 09/02/24 Unknown Urine Mucus Present (None Prsent) A 09/02/24 Unknown Urine Comment 09/02/24 Unknown Impressions Knee X-Ray 09/01/24 01:19 EXAM: XR knee LT 1 or 2V routine CLINICAL HISTORY: trauma. TECHNIQUE: X-ray images of the left knee were obtained in anteroposterior (AP) and lateral projections. COMPARISON: 03/29/2016 and 11/27/2016. FINDINGS: Bone Structure: Bone alignment is preserved. No acute fractures or dislocations identified. Radiolucent areas with surrounding sclerosis are noted in the distal femur and proximal tibia, likely post-intervention changes related to prior orthopedic hardware placement. A metallic foreign body is seen in the lateral aspect of the distal femur, stable in appearance. Correlation with surgical history is recommended. Joint Spaces: Mild joint space narrowing is observed in both the medial and lateral compartments, suggestive of early degenerative changes. Articular Surfaces: Few small marginal osteophytes are noted, with tibial plateau spiking present. Articular surfaces show early signs of degeneration but remain largely preserved. Patella: The patella is normally aligned. Patellar osteophytes are present, indicating early patellofemoral joint degeneration. Soft Tissues: Mild subcutaneous soft tissue edema is noted, predominantly in the anterior aspect. No soft tissue calcifications or foreign bodies apart from the aforementioned metallic object. Additional Findings: Suggestion of mild joint effusion is present. IMPRESSION: 1. No acute fractures or dislocations. 2. Mild joint effusion and anterior soft tissue edema. New findings. 3. Early degenerative changes of knee joint. Unchanged. 4. Stable likely post-surgical radiolucent areas with surrounding sclerosis in the distal femur and proximal tibia, and an unchanged metallic foreign body in the lateral distal femur; correlate with prior surgical history. Disclaimer: A subtle bone abnormality or fracture may not be readily apparent on X-rays, thus clinical correlation and further imaging including follow-up CT, MRI, or follow-up X-rays are advised as needed. Electronically signed by Paul Greenwood 09-01-2024 02:[address] 09/01/24 02:08 EXAM: CT knee LT wo con CLINICAL HISTORY: trauma. TECHNIQUE: Thin axial images of the left knee joint were obtained along with coronal and sagittal reconstructions. One of the following dose reduction techniques were utilized for this exam: Automated exposure control, adjustment of the mA and/or kV according to patient size, and use of iterative reconstruction. COMPARISON: CR left knee 09/01/2024 was reviewed. FINDINGS: Bones: Normal alignment of the femur, tibia, fibula, and patella is maintained. No acute fractures or dislocations are identified. Low attenuation areas with surrounding sclerosis are noted in the distal femur and proximal tibia, consistent with post-surgical changes. Correlation with surgical history is recommended. A metallic foreign body is seen in the lateral aspect of the distal femur, stable in appearance. Correlation with surgical history is recommended. No new lytic or sclerotic lesions. No evidence of bone marrow edema. Joint Space: Mild joint space narrowing is observed in the medial and lateral compartments, consistent with early degenerative changes. Few intra-articular loose bodies are present, measuring up to 4 mm. Mild knee joint effusion. Articular Cartilage: Articular cartilage is largely preserved, with early signs of degeneration. Small marginal osteophytes and mild tibial plateau spiking are noted. Menisci: Assessment limited. Ligaments: Assessment limited. Tendons: The patellar and quadriceps tendons are normal in appearance. Soft Tissues: Mild anterior subcutaneous soft tissue edema is present. Few foci of subcutaneous air are seen anteriorly, associated with overlying lacerations. No additional soft tissue masses or foreign bodies beyond the noted metallic object. IMPRESSION: 1. No acute fracture or dislocation. 2. Anterior soft tissue edema with subcutaneous air, likely related to soft tissue lacerations. 3. Mild knee joint effusion. 4. Early degenerative changes of the knee joint, with mild joint space narrowing and osteophyte formation. 5. Post-surgical changes in the distal femur and proximal tibia, with a stable metallic foreign body in the lateral distal femur. Correlate with surgical history. 6. Intra-articular loose bodies measuring up to 4 mm. 7. Findings correlate with prior recent x-ray knee. Electronically signed by Paul Greenwood 09-01-2024 03:33 AM Chest X-Ray 09/01/24 04:01 EXAM: XR chest 1V portable CLINICAL HISTORY: Hypoxia. TECHNIQUE: An X-ray image of the chest is obtained in AP projection. COMPARISON: No prior studies are available for comparison. FINDINGS: Pulmonary Parenchyma: No evidence of consolidation, collapse, or focal opacities. No pulmonary nodules are identified. No evidence of pleural effusion or pleural thickening. Heart and Mediastinum: Hyperdensity (could be clips) is projecting over the left mediastinum pleural border. Heart size is prominent. No mediastinal widening. Bony Thorax: Bony thorax appears intact without fractures or deformities. Soft Tissues: Soft tissues overlying the chest wall are unremarkable. IMPRESSION: 1. Heart size is prominent. 2. Hyperdensity (possibly clips) is projecting over the left mediastinum pleural border. Needs clinical/history correlation. 3. Unremarkable rest of the study. Electronically signed by Paul Greenwood 09-01-2024 05:[address] 09/01/24 05:50 EXAM: CT cervical spine wo con CLINICAL HISTORY: trauma TECHNIQUE: Computed tomography of the cervical spine performed without intravenous contrast. Contiguous axial images were obtained from the skull base to T2, with sagittal and coronal reformatted images reconstructed from the axial data. CT scan was performed according to ALARA (as low as reasonable achievable). COMPARISON: None. FINDINGS: The normal cervical lordotic curvature is lost due to spasm. Mild irregularity is noted involving superior endplate of C4 vertebra.- possibility of degenerative changes likely Cervical vertebral bodies are normal in height and alignment, with no evidence of fracture or subluxation. Lateral masses of C1 are symmetrical, and the dens is intact. Prevertebral soft tissues are not widened. The remaining suprahyoid and infrahyoid soft tissues in the neck are unremarkable. C2-C3: No disc bulge, mass effect on the cord or neuroforaminal narrowing. C3-C4: No disc bulge, mass effect on the cord or neuroforaminal narrowing. C4-C5: No disc bulge, mass effect on the cord or neuroforaminal narrowing. C5-C6: No disc bulge, mass effect on the cord or neuroforaminal narrowing. C6-C7: No disc bulge, mass effect on the cord or neuroforaminal narrowing. C7-T1: No disc bulge, mass effect on the cord or neuroforaminal narrowing. Thyroid gland appears unremarkable. IMPRESSION: 1.No acute fracture or subluxation in the cervical spine. 2.Mild irregularity is noted involving superior endplate of C4 vertebra.- possibility of degenerative changes likely Electronically signed by Tristian Goel 09-01-2024 06:[address] 09/01/24 05:50 EXAM: CT head/brain wo con CLINICAL HISTORY: trauma TECHNIQUE: Multiple axial images are obtained from the skull base to the vertex without contrast. CT scan was performed according to ALARA (as low as reasonable achievable). COMPARISON: None. FINDINGS: The brain shows normal morphology, attenuation, and volume for age. No evidence of space occupying lesion, hemorrhage, edema, mass effect, midline shift, extra axial collection, or hydrocephalus is noted. Ventricles, sulci, and basal cisterns are symmetric and normal in size and configuration. The mooney-white matter differentiation is preserved. Left maxillary polyposis. Rest of the visualized paranasal sinuses and mastoid air cells are well aerated. Orbital contents are within normal limits. Bony structures are intact. IMPRESSION: 1. No evidence of acute intracranial abnormality is demonstrated Electronically signed by Tristian Goel 09-01-2024 06:57 AM PG Care Time/CCT Total # of Minutes Spent Total Time Spent with Patient: Total time spent is greater than 50% in coordination of care (as documented) at patient's floor/unit and/or counseling patient: Coding Level of Care Code 93253 SUB INP/OBS CARE 2/35MIN Medical Decision Making Moderate Complexity Diagnoses Atrial fibrillation with rapid ventricular response I48.91 Congenital heart disease Q24.9 Status post Fontan procedure Z87.74 GENA (acute kidney injury) N17.9
--- NOTE | 2024-09-02 13:46 | Hospitalist Progress Note ---
Date of Service September 02, 2024 Assessment & Plan (1) Rapid atrial fibrillation: Plan: 34-year-old male with past medical history significant for congenital aortic valve insufficiency, tricuspid atresia status post Fontan's procedure, liver disease after Fontan procedure, liver lesion, cardiac cirrhosis, mild intellectual disability, obesity, Sino atrial node dysfunction, history of systolic CHF, thrombocytopenia, mood disorder, a flutter lives at home with his mother presents with fall and found to have left knee laceration and also rapid A-fib. Patient had a fall accidentally after he tripped and fell going up the steps . Seems had a large amount of bleeding and family tried to place a dressing on. In triage patient found to have have tachycardia as well as hypoxia. EKG showed rapid A-fib. ER call his bulk gas specialist in [place] and was advised for cardioversion. Patient is status post cardioversion and currently in sinus rhythm. His labs showed GENA with creatinine of 2.1 and K of 5.2. Because of his abnormal labs [facility] cardiology advised for observation in the hospital. Patient is currently getting sutures to his left knee. For last couple of days patient was having nausea and vomiting and which is improving. As per his mother did not eating anything after 2 PM yesterday. Patient denies any dizziness or chest pain or palpitations prior to fall. No shortness of breath. No cough. No fevers. No diarrhea. No abdominal pain. No fevers. Currently resting comfortably. Patient in December 2023 was transferred to [facility] from outside hospital for acute hypoxemic respiratory failure. He was noted to be in a flutter with heart rates in 220s. He was cardioverted with 100 J. He required oxygen 4 L. Echo showed EF of 50% but poor windows. At that time his total bilirubin was 5. Chest x-ray showed pulm edema. Patient was treated with IV diuresis at that time and was transferred for [place] for evaluation by pediatric cardiology. As per the [facility] notes patient seems to be out with friends in [place] when some of his friends noticed his lips were blue. Patient also started to have palpitations which prompted him to go to the ER. Upon transfer to [place] he was was saturating okay on 3 L and heart rates were okay. At [place] received IV diuresis and was seen by peds cardiology, EP and hepatology due to his complex history of tricuspid atresia status post Fontan procedure with cardiac cirrhosis sequelae. At [place] did not had any more atrial flutter or A-fib. His thoracic echo was done to evaluate Fontan pathway but it was of suboptimal and was thought that he needed congenital cardiac MRI done as outpatient. Also asked for sleep apnea referral and was discharged on Eliquis. Since he was starting Eliquis, aspirin was stopped. His Lasix was increased from 20 to 40 mg daily. And was also started on Coreg. Advised for Zio patch and follow-up with pediatric cardiology. Follow-up with pediatric Cardiology in March 2024 and there is plan for stress test and probably MRI. Rapid atrial fibrillation Status post cardioversion as per recommendation by pediatric cardiology [place] Currently in sinus rhythm. History of sinoatrial node dysfunction Continue home Coreg with holding parameters On Eliquis Will follow echo- echo reviewed by bulk gas specialist Consult cardiology- appreciate input and recommendation Close monitoring telemetry Has been feeling better without any palpitation, chest pain or shortness of breath Heart rate is controlled no more evidence of RVR Denies any palpitations and/or chest pain Hypoxia Requiring oxygen Chest x-ray seems okay History of respiratory requiring oxygen because of pulmonary edema he December 2023 He has been getting 3 L to maintain saturation Advised to keep the saturation more than 85% and wean off oxygen as much as possible to maintain that Oxygen is weaned off and has been saturating normally on room air Fall Left knee laceration. Getting sutures in the ER CT head, CT cervical spine, unremarkable chest x-ray no acute findings Left knee CT scan. No acute fractures or dislocation. Anterior soft tissue edema with subcutaneous air related to soft tissue lacerations seen. Metallic foreign body in the lateral aspect distal femur stable in appearance PT OT when stable Pain control Empiric Rocephin for the laceration Will consult wound careawaiting wound care evaluation and further recommendation further care History of systolic CHF Will follow echo Holding Lasix for GENA Will stop any IV fluid and start Lasix 40 mg IV daily as per recommendation from bulk gas specialist in [place] Received 1 dose of Lasix yesterday and none will be given today as per the bulk gas specialist Does not seems to be in volume overload Nausea and vomiting For last couple of days Improving Will monitor GENA Baseline creatinine around 1 Today creatinine of 2.1 Possibly from nausea and vomiting Holding Lasix and lisinopril Follow repeat labs- creatinine has been improving Creatinine elevated to 2.59 with potassium at 5.4 which Diuretic has been on hold due to increasing. And creatinine Hyperkalemia Potassium 5.2 Holding lisinopril Follow repeat labs- will recheck PRP at 6 PM Potassium level has been 5.4 today we will monitor Cardiac cirrhosis Thrombocytopenia Total bilirubin 2.5, AST 22, ALT 14, alkaline phos is 84 Platelets 89 around baseline We will follow repeat labs Cardiology recommended follow-up with hepatology Congenital aortic valve insufficiency Tricuspid atresia Status post Fontan's procedure Follows with cardiology Significant ventricular dilatation on echo Plan for stress test and MRI as an outpatient Hypertension Continue Coreg with holding parameters Holding lisinopril and Lasix We will monitor Mood disorder On Zoloft and trazodone GERD On omeprazole DVT prophylaxis On Eliquis. Monitor for any bleeding Disposition Telemetry Full code. (2) GENA (acute kidney injury): (3) Status post Fontan procedure: (4) Congenital heart disease: (5) Laceration of knee, left: (6) Fall: Admission and Anticipated Discharge Date Admission Date: September 01, 2024 Subjective 09/01/2024 The patient was seen and examined in telemetry unit He was admitted with fall with left knee laceration and noted to have atrial fibrillation with RVR on admission Has significant heart surgery with Fontan's procedure He has been feeling much better since admission and denies any chest pain, palpitation or shortness of breath at rest 09/02/2024 Patient was seen and examined in telemetry unit He has been stable but complaining of pain in the left knee at the laceration site Received a dose of morphine earlier this morning and the blood pressure was low so metoprolol was on hold He will be given oxycodone to decrease the change in blood pressure Wants to go home he is Review of Systems Review of Systems: all systems reviewed and are unremarkable except as noted below Physical Exam Physical Exam: Lying in bed without any acute distress Constitutional: well developed, well nourished, + ill appearing and + obese Eyes: PERRL, conjunctivae normal, anicteric sclerae ENMT: external ear and nose normal, oropharynx normal Neck: trachea midline, no thyromegaly Respiratory: no respiratory distress Auscultation: + diminished lung sounds and + crackles ( occasional crackles at the bases) Cardiovascular: Rate/Rhythm: + irregularly irregular Heart Sounds: normal S1, normal S2 and + murmur Extremities: + edema ( 1+ edema bilaterally) Gastrointestinal (Abdomen): Inspection/Auscultation: normal bowel sounds; abdomen not distended Percussion/Palpation: abdomen soft; abdomen nontender Neurologic: normal touch/pain/proprioception and moves all extremities; no focal motor deficits Lymphatic: no cervical or axillary lymphadenopathy Results & Data Results & Data Vital Signs (Past 12 Hours) Vital Signs Temp Pulse Resp BP BP Pulse Ox O2 Del Method 09/02/24 11:36 36.3 C L 82 18 96/65 L 91 Room Air 09/02/24 11:16 Nasal Cannula 09/02/24 07:58 36.6 C 88 20 89/55 L 81/52 L 91 Nasal Cannula 09/02/24 04:27 36.9 C 85 16 96/92 L 90 Nasal Cannula O2 Flow Rate 09/02/24 11:36 09/02/24 11:16 2 09/02/24 07:58 4 09/02/24 04:27 3.5 Laboratory Results Short CBC 09/02/24 Range/Units 05:27 WBC 6.93 (4.8-10.8) K/ul Hgb 12.0 L (14.0-18.0) g/dl Hct 36.4 L (42.0-52.0) % Plt Count 69 L (130-400) K/uL BMP 09/01/24 09/02/24 17:38 10:58 Sodium 131 L 130 L Potassium 5.2 H 5.4 H Chloride 104 103 Carbon Dioxide 20 L 21 BUN 47 H 52 H Creatinine 1.85 H 2.59 H D Glucose 110 H 91 Calcium 8.4 L 8.3 L Liver Function 09/02/24 Range/Units 05:27 Total Bilirubin 2.8 H (0.2-1.0) mg/dl Direct Bilirubin 0.9 H (0-0.2) mg/dl AST 16 (13-39) U/L ALT 11 (7-52) U/L Alkaline Phosphatase 74 (34-104) U/L Albumin 3.8 (3.4-5.0) gm/dl Urine 09/02/24 Range/Units Unknown Urine Color Dark Yellow Urine Appearance Clear (Clear) Urine pH 5.0 (4.5-7.5) Ur Specific [place] 1.014 (1.000-1.030) Urine Protein Trace H (Negative) Urine Glucose (UA) Negative (Negative) Medications Administered Current Inpatient Medications Apixaban (Apixaban 5 Mg Tablet) 5 mg PO BID BORIS Stop: 10/01/24 08:59 Last Admin: 09/02/24 08:34 Dose: 5 mg Ceftriaxone Sodium (Rocephin) 2,000 mg in 50 mls @ 100 mls/hr IV Q24H BORIS Stop: 09/09/24 08:59 Last Infusion: 09/02/24 09:20 Dose: Infused Metoprolol Succinate (Metoprolol Succ 25mg Ext Rel Tab) 25 mg PO BID BORIS Stop: 10/01/24 20:59 Last Admin: 09/02/24 08:04 Dose: Not Given Montelukast Sodium (Montelukast Sodium 10 Mg Tablet) 10 mg PO DAILY BORIS Stop: 10/01/24 08:59 Last Admin: 09/02/24 08:34 Dose: 10 mg Nitroglycerin (Nitroglycerin Sl 0.4 Mg/Tab Tab) 0.4 mg SL Q5M PRN PRN Reason: Chest Pain Stop: 10/01/24 08:51 Oxycodone HCl (Oxycodone Hcl Ir 5 Mg Tab (Immediate Release)) 5 mg PO Q6H PRN PRN Reason: Pain Stop: 09/16/24 11:11 Pantoprazole Sodium (Pantoprazole 40 Mg Tab) 40 mg PO BID BORIS Stop: 10/01/24 08:59 Last Admin: 09/02/24 08:34 Dose: 40 mg Polyethylene Glycol (Polyethylene (Miralax) 17 Gm Pack) 17 gm PO DAILY PRN PRN Reason: Constipation Stop: 10/01/24 08:51 Sertraline HCl (Sertraline Hcl 100 Mg Tablet) 100 mg PO DAILY BORIS Stop: 10/01/24 08:59 Last Admin: 09/02/24 08:34 Dose: 100 mg Trazodone HCl (Trazodone Hcl 50 Mg Tab) 50 mg PO HS BORIS Stop: 10/01/24 20:59 Last Admin: 09/01/24 21:11 Dose: 50 mg
--- NOTE | 2024-09-02 21:08 | Emergency Department Note ---
Pre Sedation Assessment Cardiovascular RRR, no murmur, no edema + irregularly irregular + S1 normal and + S2 normal + peripheral pulses normal, + dorsalis pedis pulses present and + radial pulses present + capillary refill normal Respiratory normal respiratory effort, lungs clear to auscultation + respiratory effort normal and + able to speak in complete sentences + clear to auscultation bilaterally Pre-Sedation Airway Assessment Smoking Status: Current every day smoker Short, Thick Neck: Yes Thyromental Distance: > or= 3.5 Finger Breadths Oral Cavity: + WNL Mallampati Class: II ASA: ASA3 NPO Status Date of Last Intake of Fluids: 08/31/24 Last Oral Intake of Fluids Comment: 1400 Date of Last Intake of Solid Food: 08/31/24 Time of Last Intake of Solid Foods: 14:00 Notes The planned sedation has been discussed with the patient. Informed Consent was obtained. I have identified the patient, determined the appropriateness of sedation and have assessed the patient immediately prior to the procedure. All medicine(s) and interventions are by my order.
--- NOTE | 2024-09-02 21:09 | Emergency Department Note ---
Post Sedation Assessment Recovery Score Activity: Moves 4 extremities Respiration: Deep Breath/Cough Circulation: +/-20% PreAnes Value Consciousness: Fully Awake Oxygen Saturation: O2 needed for >90% Post Anesthesia Score: 9 Discharge Sedation Level of Care: Fast Track Phase II Unexpected Event: None Post Sedation Plan On clinical assessment, the patient appears to have tolerated the sedation without complications. Patient is recovering as anticipated. Patient will continue to be monitored by nursing and may be discharged when sedation discharge criteria are met per below protocol. Upon Completions of procedure up to 15 minutes continue every 5 minute vital signs and the P.A.R. score; then discharge to a Phase I or Fast Track to Phase II per the following guidelines: * Discharge Patient to appropriate Phase II area if PAR is 8 or greater or return to pre- procedure baseline. The post - procedure orders will be as directed. * If PAR score is less than 8 or not return to pre-procedure baseline then patient will follow Phase I monitoring till PAR is reached for Phase II. The Phase I may be done in procedure room or may call to secure a Phase I area. * If naloxone or flumazenil are used for reversal, hold in Phase I for continued monitoring from when last reversal dose was given for a minimum of 60 minutes or longer pending the nurse and/or physician discretion of patient condition before discharge to Phase II. Please call the Sedation Physician to re-evaluate and complete post-note for discharge to Phase II area. Do NOT discharge from procedure sedation or Phase 1 until post- sedation evaluation note is complete by procedure /sedation MD Sedation Discharge Instructions to be given to the patient at discharge to home. Sedation Data Sedation Times Sedation Start Date: 09/01/24 Sedation Start Time: :30 Sedation End Date: 09/01/24 Sedation End Time: :32 Total Sedation Time: 2 Procedure Times Procedure Start Time:: :30 Procedure End Time: :32
[2024-09-02] MEDS: SODIUM CHLORIDE 0.9% 500 ML IV ONE (23:52)
[2024-09-03 06:08] LABS: Hematocrit (blood only) 35.1 % (42.0-52.0); Hemoglobin 11.0 g/dl (14.0-18.0); Immature Granulocytes # (auto) 0.02 K/uL (0.01-0.20); Immature Granulocytes % (auto) 0.4 %; Mean Corpuscular Hemoglobin 31.6 pg (25.0-34.0); Mean Corpuscular Volume 100.9 fL (80.0-100.0); Platelet Count 70 K/uL (130-400); RDW Standard Deviation 55.8 fL (36.4-46.3); Red Blood Count 3.48 M/uL (4.70-6.10); White Blood Count 5.20 K/ul (4.8-10.8)
[2024-09-03 06:47] LABS: Anion Gap 7.0 (3-11); Blood Urea Nitrogen 57.0 mg/dl (6-23); Calcium 8.2 mg/dl (8.6-10.3); Carbon Dioxide 19.0 mmol/L (21-32); Chloride 102.0 mmol/L (98-107); Creatinine Clr Calc Pharmacy 43.1 ml/min; Glucose 87.0 mg/dl (70-99(Fasting)); Magnesium 2.1 mg/dl (1.7-2.4); Potassium 5.4 mmol/L (3.5-5.1); Sodium 128.0 mmol/L (136-145)
--- NOTE | 2024-09-03 11:55 | Cardiology Progress Note ---
<Statement entered by Brittany George, DO - 09/03/24 13:32> I have reviewed the advanced practitioner's documentation and agree with the plan of care. I accept the responsibility for the associated risk. Pt seen in cardiology f/u due to AF with RVR s/p DCCV he remains in SR today His kidney function continues to rise despite holding IV lasix and lisinopril yesterday; we consulted nephrology who recommended IV lasix 40mg BID-appreciate their input Continue toprol and eliquis Date of Service September 03, 2024 Assessment & Plan (1) Atrial fibrillation with rapid ventricular response: (2) Congenital heart disease: (3) Status post Fontan procedure: (4) GENA (acute kidney injury): Plan - Heart rate currently well-controlled - Noted to be persistently hypotensive - Despite holding diuretics renal function has continued to uptrend - Does appear relatively euvolemic on exam - Recommend nephrology consult for further evaluation - Continue apixaban and Toprol - Given his GENA and hypotension will need to continue to hold lisinopril - Has been weaned off supplemental oxygen and maintaining saturations on room air - Will need to work on improving ambulation status and getting him up and walking to make sure he will be safe to return home prior to discharge - He plans to work with nursing to get up and start walking this afternoon Case discussed with Dr. George. Please see attestation for additional recommendations. SARTHAK Sherman Department of Cardiology, [facility] This chart was completed in part utilizing Speech Voice Recognition Software. Grammatical errors, random word insertions, pronoun errors, and incomplete se ntences are an occasional consequence of this system due to software limitations, ambient noise, and hardware issues. Any formal questions or concerns about the content, text, or information contained within the body of this dictation should be directly addressed to the provider for clarification. Admission and Anticipated Discharge Date Admission Date: September 01, 2024 Subjective 34-year-old male seen in cardiology follow-up in regards to cardiomyopathy, A- fib RVR, hypotension. He has been maintaining sinus rhythm with occasional PACs since the cardioversion 2 days ago. Has been weaned off supplemental oxygen. Overall reports feeling well. Has not been up walking around much after his knee injury. Review of Systems Review of Systems: All systems reviewed & are unremarkable except as noted in Subjective Physical Exam Constitutional: WD/WN, vitals as above well developed and well nourished; no acute distress Eyes: PERRL, conjunctivae normal, anicteric sclerae Neck: trachea midline, no thyromegaly Respiratory: normal respiratory effort, lungs clear to auscultation Cardiovascular: Rate/Rhythm: regular rate and regular rhythm Vessels: no JVD and no carotid bruit Gastrointestinal (Abdomen): normal bowel sounds, soft, nontender, no hepatosplenomegaly Skin: no rashes, warm and dry Psychiatric: A+Ox3, euthymic affect Results & Data Vital Signs (Past 12 Hours) Vital Signs Temp Pulse Resp BP BP Pulse Ox O2 Del Method 09/03/24 08:17 36.4 C L 94 H 20 90/57 L 90 Room Air 09/03/24 03:13 36.5 C 86 16 95/59 L 85 L Room Air 09/03/24 00:30 103/65 Laboratory Results CBC 09/03/24 Range/Units 05:17 WBC 5.20 (4.8-10.8) K/ul RBC 3.48 L (4.70-6.10) M/uL Hgb 11.0 L (14.0-18.0) g/dl Hct 35.1 L (42.0-52.0) % Plt Count 70 L (130-400) K/uL Neut # (Auto) 3.60 (1.40-6.50) K/uL Lymph # (Auto) 0.65 L (1.20-3.40) K/uL Moffat # (Auto) 0.79 H (0.11-0.59) K/uL Eos # (Auto) 0.12 (0.00-0.50) K/uL Baso # (Auto) 0.02 (0.00-0.20) K/uL Comprehensive Metabolic Panel 09/03/24 Range/Units 05:17 Sodium 128 L (136-145) mmol/L Potassium 5.4 H (3.5-5.1) mmol/L Chloride 102 (98-107) mmol/L Carbon Dioxide 19 L (21-32) mmol/L BUN 57 H (6-23) mg/dl Creatinine 3.13 H D (0.6-1.4) mg/dl Glucose 87 (70-99(Fasting)) mg/dl Calcium 8.2 L (8.6-10.3) mg/dl Intake and Output 09/02/24 09/03/24 09/03/24 22:59 06:59 14:59 Intake Total 240 / 1790 500 / 1790 50 / 50 Output Total 300 / 300 Balance -60 / 1490 500 / 1490 50 / 50 Intake: IV 500 / 550 50 / 50 Sodium Chloride 0.9% 500 ml @ 500 / 500 999 mls/hr IV .Q31M ONE Rx#: [id number] cefTRIAXone SODIUM 2,000 mg In 50 / 50 50 ml @ 100 mls/hr IV Q24H [facility] Rx#:[id number] Oral 240 / 1240 Output: Urine 300 / 300 Other: Weight 118.5 kg Weight Measurement Method Built in [facility] Findings Laboratory Results WBC 5.20 K/ul (4.8-10.8) 09/03/24 05:17 RBC 3.48 M/uL (4.70-6.10) L 09/03/24 05:17 Hgb 11.0 g/dl (14.0-18.0) L 09/03/24 05:17 Hct 35.1 % (42.0-52.0) L 09/03/24 05:17 MCV 100.9 fL (80.0-100.0) H 09/03/24 05:17 MCH 31.6 pg (25.0-34.0) 09/03/24 05:17 MCHC 31.3 g/dL (32.0-36.0) L 09/03/24 05:17 RDW Std Deviation 55.8 fL (36.4-46.3) H 09/03/24 05:17 RDW Coeff of Mary 15.0 % (11.5-14.5) H 09/03/24 05:17 Plt Count 70 K/uL (130-400) L 09/03/24 05:17 MPV 14.7 fL (9.4-12.4) H 09/03/24 05:17 Immature Gran % (Auto) 0.4 % 09/03/24 05:17 Neut % (Auto) 69.2 % 09/03/24 05:17 Lymph % (Auto) 12.5 % 09/03/24 05:17 Moffat % (Auto) 15.2 % 09/03/24 05:17 Eos % (Auto) 2.3 % 09/03/24 05:17 Baso % (Auto) 0.4 % 09/03/24 05:17 Neut # (Auto) 3.60 K/uL (1.40-6.50) 09/03/24 05:17 Lymph # (Auto) 0.65 K/uL (1.20-3.40) L 09/03/24 05:17 Moffat # (Auto) 0.79 K/uL (0.11-0.59) H 09/03/24 05:17 Eos # (Auto) 0.12 K/uL (0.00-0.50) 09/03/24 05:17 Baso # (Auto) 0.02 K/uL (0.00-0.20) 09/03/24 05:17 Immature Gran # (Auto) 0.02 K/uL (0.01-0.20) 09/03/24 05:17 Platelet Estimate Decreased (Normal) L 09/01/24 01:10 Echinocytes 1+ 09/01/24 01:10 PT 12.5 Seconds (9.0-12.0) H 09/01/24 01:10 INR 1.2 (0.9-1.1) H 09/01/24 01:10 Sodium 128 mmol/L (136-145) L 09/03/24 05:17 Potassium 5.4 mmol/L (3.5-5.1) H 09/03/24 05:17 Chloride 102 mmol/L (98-107) 09/03/24 05:17 Carbon Dioxide 19 mmol/L (21-32) L 09/03/24 05:17 Anion Gap 7 (3-11) 09/03/24 05:17 BUN 57 mg/dl (6-23) H 09/03/24 05:17 Creatinine 3.13 mg/dl (0.6-1.4) H D 09/03/24 05:17 Est Cr Clr Drug Dosing 43.1 ml/min 09/03/24 05:17 eGFR 25.60 09/03/24 05:17 BUN/Creatinine Ratio 18.2 (10-20) 09/03/24 05:17 Glucose 87 mg/dl (70-99(Fasting)) 09/03/24 05:17 Calcium 8.2 mg/dl (8.6-10.3) L 09/03/24 05:17 Magnesium 2.1 mg/dl (1.7-2.4) 09/03/24 05:17 Total Bilirubin 2.8 mg/dl (0.2-1.0) H 09/02/24 05:27 Direct Bilirubin 0.9 mg/dl (0-0.2) H 09/02/24 05:27 AST 16 U/L (13-39) 09/02/24 05:27 ALT 11 U/L (7-52) 09/02/24 05:27 Alkaline Phosphatase 74 U/L (34-104) 09/02/24 05:27 Troponin I High Sens 4.2 pg/ml (0-20) 09/01/24 17:38 Total Protein 6.3 gm/dl (6.0-8.3) 09/02/24 05:27 Albumin 3.8 gm/dl (3.4-5.0) 09/02/24 05:27 Globulin 3.2 gm/dl (2.5-4.0) 09/01/24 01:10 Albumin/Globulin Ratio 1.3 (0.9-2) 09/01/24 01:10 TSH 7.780 uIu/ml (0.300-4.500) H 09/01/24 01:10 Free T4 1.22 ng/dl (0.61-1.60) 09/01/24 01:10 Urine Color Dark Yellow 09/02/24 Unknown Urine Appearance Clear (Clear) 09/02/24 Unknown Urine pH 5.0 (4.5-7.5) 09/02/24 Unknown Ur Specific [place] 1.014 (1.000-1.030) 09/02/24 Unknown Urine Protein Trace (Negative) H 09/02/24 Unknown Urine Glucose (UA) Negative (Negative) 09/02/24 Unknown Urine Ketones Trace (Negative) H 09/02/24 Unknown Urine Blood Negative (Negative) 09/02/24 Unknown Urine Nitrite Negative (Negative) 09/02/24 Unknown Urine Bilirubin 1+ (Negative) H 09/02/24 Unknown Urine Urobilinogen Negative (Negative) 09/02/24 Unknown Ur Leukocyte Esterase Negative (Negative) 09/02/24 Unknown Urine WBC (Auto) 0-5 /hpf (0-5) 09/02/24 Unknown Urine RBC (Auto) 0-2 /hpf (0-2) 09/02/24 Unknown U Hyaline Cast (Auto) >20 /lpf (0-2) H 09/02/24 Unknown U Epithel Cells (Auto) 0-2 /hpf (0-2) 09/02/24 Unknown Urine Bacteria (Auto) None Seen (None Seen) 09/02/24 Unknown Urine Mucus Present (None Prsent) A 09/02/24 Unknown Urine Comment 09/02/24 Unknown Impressions Knee X-Ray 09/01/24 01:19 EXAM: XR knee LT 1 or 2V routine CLINICAL HISTORY: trauma. TECHNIQUE: X-ray images of the left knee were obtained in anteroposterior (AP) and lateral projections. COMPARISON: 03/29/2016 and 11/27/2016. FINDINGS: Bone Structure: Bone alignment is preserved. No acute fractures or dislocations identified. Radiolucent areas with surrounding sclerosis are noted in the distal femur and proximal tibia, likely post-intervention changes related to prior orthopedic hardware placement. A metallic foreign body is seen in the lateral aspect of the distal femur, stable in appearance. Correlation with surgical history is recommended. Joint Spaces: Mild joint space narrowing is observed in both the medial and lateral compartments, suggestive of early degenerative changes. Articular Surfaces: Few small marginal osteophytes are noted, with tibial plateau spiking present. Articular surfaces show early signs of degeneration but remain largely preserved. Patella: The patella is normally aligned. Patellar osteophytes are present, indicating early patellofemoral joint degeneration. Soft Tissues: Mild subcutaneous soft tissue edema is noted, predominantly in the anterior aspect. No soft tissue calcifications or foreign bodies apart from the aforementioned metallic object. Additional Findings: Suggestion of mild joint effusion is present. IMPRESSION: 1. No acute fractures or dislocations. 2. Mild joint effusion and anterior soft tissue edema. New findings. 3. Early degenerative changes of knee joint. Unchanged. 4. Stable likely post-surgical radiolucent areas with surrounding sclerosis in the distal femur and proximal tibia, and an unchanged metallic foreign body in the lateral distal femur; correlate with prior surgical history. Disclaimer: A subtle bone abnormality or fracture may not be readily apparent on X-rays, thus clinical correlation and further imaging including follow-up CT, MRI, or follow-up X-rays are advised as needed. Electronically signed by Paul Greenwood 09-01-2024 02:[address] 09/01/24 02:08 EXAM: CT knee LT wo con CLINICAL HISTORY: trauma. TECHNIQUE: Thin axial images of the left knee joint were obtained along with coronal and sagittal reconstructions. One of the following dose reduction techniques were utilized for this exam: Automated exposure control, adjustment of the mA and/or kV according to patient size, and use of iterative reconstruction. COMPARISON: CR left knee 09/01/2024 was reviewed. FINDINGS: Bones: Normal alignment of the femur, tibia, fibula, and patella is maintained. No acute fractures or dislocations are identified. Low attenuation areas with surrounding sclerosis are noted in the distal femur and proximal tibia, consistent with post-surgical changes. Correlation with surgical history is recommended. A metallic foreign body is seen in the lateral aspect of the distal femur, stable in appearance. Correlation with surgical history is recommended. No new lytic or sclerotic lesions. No evidence of bone marrow edema. Joint Space: Mild joint space narrowing is observed in the medial and lateral compartments, consistent with early degenerative changes. Few intra-articular loose bodies are present, measuring up to 4 mm. Mild knee joint effusion. Articular Cartilage: Articular cartilage is largely preserved, with early signs of degeneration. Small marginal osteophytes and mild tibial plateau spiking are noted. Menisci: Assessment limited. Ligaments: Assessment limited. Tendons: The patellar and quadriceps tendons are normal in appearance. Soft Tissues: Mild anterior subcutaneous soft tissue edema is present. Few foci of subcutaneous air are seen anteriorly, associated with overlying lacerations. No additional soft tissue masses or foreign bodies beyond the noted metallic object. IMPRESSION: 1. No acute fracture or dislocation. 2. Anterior soft tissue edema with subcutaneous air, likely related to soft tissue lacerations. 3. Mild knee joint effusion. 4. Early degenerative changes of the knee joint, with mild joint space narrowing and osteophyte formation. 5. Post-surgical changes in the distal femur and proximal tibia, with a stable metallic foreign body in the lateral distal femur. Correlate with surgical history. 6. Intra-articular loose bodies measuring up to 4 mm. 7. Findings correlate with prior recent x-ray knee. Electronically signed by Paul Greenwood 09-01-2024 03:33 AM Chest X-Ray 09/01/24 04:01 EXAM: XR chest 1V portable CLINICAL HISTORY: Hypoxia. TECHNIQUE: An X-ray image of the chest is obtained in AP projection. COMPARISON: No prior studies are available for comparison. FINDINGS: Pulmonary Parenchyma: No evidence of consolidation, collapse, or focal opacities. No pulmonary nodules are identified. No evidence of pleural effusion or pleural thickening. Heart and Mediastinum: Hyperdensity (could be clips) is projecting over the left mediastinum pleural border. Heart size is prominent. No mediastinal widening. Bony Thorax: Bony thorax appears intact without fractures or deformities. Soft Tissues: Soft tissues overlying the chest wall are unremarkable. IMPRESSION: 1. Heart size is prominent. 2. Hyperdensity (possibly clips) is projecting over the left mediastinum pleural border. Needs clinical/history correlation. 3. Unremarkable rest of the study. Electronically signed by Paul Greenwood 09-01-2024 05:[address] 09/01/24 05:50 EXAM: CT cervical spine wo con CLINICAL HISTORY: trauma TECHNIQUE: Computed tomography of the cervical spine performed without intravenous contrast. Contiguous axial images were obtained from the skull base to T2, with sagittal and coronal reformatted images reconstructed from the axial data. CT scan was performed according to ALARA (as low as reasonable achievable). COMPARISON: None. FINDINGS: The normal cervical lordotic curvature is lost due to spasm. Mild irregularity is noted involving superior endplate of C4 vertebra.- possibility of degenerative changes likely Cervical vertebral bodies are normal in height and alignment, with no evidence of fracture or subluxation. Lateral masses of C1 are symmetrical, and the dens is intact. Prevertebral soft tissues are not widened. The remaining suprahyoid and infrahyoid soft tissues in the neck are unremarkable. C2-C3: No disc bulge, mass effect on the cord or neuroforaminal narrowing. C3-C4: No disc bulge, mass effect on the cord or neuroforaminal narrowing. C4-C5: No disc bulge, mass effect on the cord or neuroforaminal narrowing. C5-C6: No disc bulge, mass effect on the cord or neuroforaminal narrowing. C6-C7: No disc bulge, mass effect on the cord or neuroforaminal narrowing. C7-T1: No disc bulge, mass effect on the cord or neuroforaminal narrowing. Thyroid gland appears unremarkable. IMPRESSION: 1.No acute fracture or subluxation in the cervical spine. 2.Mild irregularity is noted involving superior endplate of C4 vertebra.- possibility of degenerative changes likely Electronically signed by Tristian Goel 09-01-2024 06:[address] 09/01/24 05:50 EXAM: CT head/brain wo con CLINICAL HISTORY: trauma TECHNIQUE: Multiple axial images are obtained from the skull base to the vertex without contrast. CT scan was performed according to ALARA (as low as reasonable achievable). COMPARISON: None. FINDINGS: The brain shows normal morphology, attenuation, and volume for age. No evidence of space occupying lesion, hemorrhage, edema, mass effect, midline shift, extra axial collection, or hydrocephalus is noted. Ventricles, sulci, and basal cisterns are symmetric and normal in size and configuration. The mooney-white matter differentiation is preserved. Left maxillary polyposis. Rest of the visualized paranasal sinuses and mastoid air cells are well aerated. Orbital contents are within normal limits. Bony structures are intact. IMPRESSION: 1. No evidence of acute intracranial abnormality is demonstrated Electronically signed by Tristian Goel 09-01-2024 06:57 AM PG Care Time/CCT Total # of Minutes Spent Total Time Spent with Patient: Total time spent is greater than 50% in coordination of care (as documented) at patient's floor/unit and/or counseling patient: Coding Level of Care Code 51892 SUB INP/OBS CARE 2/35MIN Medical Decision Making Moderate Complexity Diagnoses Atrial fibrillation with rapid ventricular response I48.91 Congenital heart disease Q24.9 Status post Fontan procedure Z87.74 GENA (acute kidney injury) N17.9
--- NOTE | 2024-09-03 12:59 | Nephrology Consultation ---
Date of Consultation September 03, 2024 Assessment & Plan (1) GENA (acute kidney injury): Acute kidney injury-ATN - Likley 2/ Hemodynamic instability 2/ AF w/RVR , Hypotension. Though his weight has remained the same, his sodium has dropped and he is acidotic and has Hyperkalemia.His EF has severly reduced EF and his baseline weight in unknown as he does not weigh himself.He was on IV fluids post admission. I suspect element of fluid overload - 40mg IV lasix BID - Strictly daily standing weight daily - Input and output - Continue to hold Lisinopril - His renal functions decline further before starting to plataeu. - (2) Atrial fibrillation with rapid ventricular response: In NSR now - Continue as Per cardiac recs. History of Present Illness Reason for Consultation: Acute kidney injury Attending Physician: Greta Alonzo MD History of Present Illness 34-year-old male presenting to the emergency department on 09/01 w/ nausea / vomiting ( over the last 2-3 days before admission),mechanical fall injuring his knee wiht large laceration and was noted to be atrial fibrillation with rapid ventricular response .On admisison his Scr was 2.1( baselien 1.-'s), this marginally improved to Cr 1.8 but has worsened over the last 48 hr with Scr of 3.13 today.He has aslo been mildy hyperkalemic and has metabolic acidosis. Sodium has dropped to 128 ( normally in early 130's).BP has been soft w/ systolic in 80's to 90's. Home dose of lisinopril( 20 mg) and furosemide ( 40 mg) has been with held(he got 40 mg iv lasix on 09/01) UOP has been variable between 300--650 mls daily.Weight has remained steady since admission ( @ 118.8 pounds). Patient found to be hypoxic and placed on 4 L of supplemental oxygen which has now been weaned to room air on nasal cannula.. External direct-current cardioversion was performed by the ER He is remained in sinus rhythm heart rate 90 to 100 bpm on telemetry Past medical history significant for congenital aortic valve insufficiency, tricuspid atresia status post Fontan's procedure, liver disease after Fontan procedure, liver lesion, cardiac cirrhosis, mild intellectual disability, obesity, Sino atrial node dysfunction, history of systolic CHF, thrombocytopenia, mood disorder, a flutter. Compliant with medications.Findings suggest acute on chronic heart failure with history of complex congenital heart disease, tricuspid atresia status post Fontan procedure.Repeat echocardiogram demonstrates severely reduced LV systolic function with an estimated left ventricular ejection fraction of 20-25%. - Denies chest pain, shortness of breath, or palpitations. Notes mild, chronic bilateral lower extremity edema. Poor historian. Allergies Allergy/AdvReac Type Severity Reaction Status Date / Time acetaminophen AdvReac Unknown AVOIDS D/T Verified 09/01/24 02:23 CIRRHOSIS OF LIVER Home Medications Medication Instructions Recorded Confirmed Type apixaban 5 mg tablet (Eliquis) 5 mg PO BID 09/01/24 09/01/24 History betamethasone dipropionate 0.05 % 1 applic topical DIRECTED 09/01/24 09/01/24 History topical cream carvedilol 6.25 mg tablet 6.25 mg PO BID 09/01/24 09/01/24 History furosemide 40 mg tablet 40 mg PO DAILY 09/01/24 09/01/24 History lisinopril 20 mg tablet 20 mg PO DAILY 09/01/24 09/01/24 History montelukast 10 mg tablet 10 mg PO DAILY 09/01/24 09/01/24 History omeprazole 20 mg capsule,delayed 20 mg PO BID 09/01/24 09/01/24 History release sertraline 100 mg tablet 100 mg PO DAILY 09/01/24 09/01/24 History trazodone 50 mg tablet 50 mg PO HS 09/01/24 09/01/24 History Patient History Social History Smoking Status: Current every day smoker Tobacco Type: Smokeless Tobacco (Dip or Chew) Hx Alcohol Use: No Hx Substance Use: No Preferred Language: Mongolian Imaging Manager Required: No Beliefs That Will Affect Care: None Current Living Situation: Parent Other Information That Helps Us Care for You: No Feels Safe at Home: Yes Safety Concerns: Feels Safe At This Time Assistive Devices: None Review of Systems 2 Review of Systems: All systems reviewed & are unremarkable except as noted in HPI & below Physical Exam 2 Physical Exam: Constitutional: WD/WN, vitals as a frantz well develop ed and well nouris hed; no acute dist ress Eyes: PERRL, conjunctiva e normal, anicteri c sclerae Neck: trachea midline, n o thyromegaly Respiratory: normal respiratory effort, lungs aristides ar to auscultation Cardiovascular: Rate/Rhythm: regul ar rate and regula r rhythm Vessels: no JVD and no car otid bruit Gastrointestinal ( Abdomen): normal bowel sound s, soft, nontender , no hepatosplenom egaly EXtremity Bilateral pedal ed ema1+ Results & Data Vital Signs (Past 12 Hours) Vital Signs Temp Pulse Resp BP BP Pulse Ox O2 Del Method 09/03/24 12:09 36.4 C L 87 20 90/49 L 90 Room Air 09/03/24 11:57 Room Air 09/03/24 08:17 36.4 C L 94 H 20 90/57 L 90 Room Air 09/03/24 03:13 36.5 C 86 16 95/59 L 85 L Room Air Laboratory Results 09/03/24 05:17 09/03/24 05:17
--- NOTE | 2024-09-03 13:59 | Hospitalist Progress Note ---
Date of Service September 03, 2024 Assessment & Plan (1) Rapid atrial fibrillation: Plan: 34-year-old male with past medical history significant for congenital aortic valve insufficiency, tricuspid atresia status post Fontan's procedure, liver disease after Fontan procedure, liver lesion, cardiac cirrhosis, mild intellectual disability, obesity, Sino atrial node dysfunction, history of systolic CHF, thrombocytopenia, mood disorder, a flutter lives at home with his mother presents with fall and found to have left knee laceration and also rapid A-fib. Patient had a fall accidentally after he tripped and fell going up the steps . Seems had a large amount of bleeding and family tried to place a dressing on. In triage patient found to have have tachycardia as well as hypoxia. EKG showed rapid A-fib. ER call his records coordinator in [place] and was advised for cardioversion. Patient is status post cardioversion and currently in sinus rhythm. His labs showed GENA with creatinine of 2.1 and K of 5.2. Because of his abnormal labs [facility] cardiology advised for observation in the hospital. Patient is currently getting sutures to his left knee. For last couple of days patient was having nausea and vomiting and which is improving. As per his mother did not eating anything after 2 PM yesterday. Patient denies any dizziness or chest pain or palpitations prior to fall. No shortness of breath. No cough. No fevers. No diarrhea. No abdominal pain. No fevers. Currently resting comfortably. Patient in December 2023 was transferred to [facility] from outside hospital for acute hypoxemic respiratory failure. He was noted to be in a flutter with heart rates in 220s. He was cardioverted with 100 J. He required oxygen 4 L. Echo showed EF of 50% but poor windows. At that time his total bilirubin was 5. Chest x-ray showed pulm edema. Patient was treated with IV diuresis at that time and was transferred for [place] for evaluation by pediatric cardiology. As per the [facility] notes patient seems to be out with friends in [place] when some of his friends noticed his lips were blue. Patient also started to have palpitations which prompted him to go to the ER. Upon transfer to [place] he was was saturating okay on 3 L and heart rates were okay. At [place] received IV diuresis and was seen by peds cardiology, EP and hepatology due to his complex history of tricuspid atresia status post Fontan procedure with cardiac cirrhosis sequelae. At [place] did not had any more atrial flutter or A-fib. His thoracic echo was done to evaluate Fontan pathway but it was of suboptimal and was thought that he needed congenital cardiac MRI done as outpatient. Also asked for sleep apnea referral and was discharged on Eliquis. Since he was starting Eliquis, aspirin was stopped. His Lasix was increased from 20 to 40 mg daily. And was also started on Coreg. Advised for Zio patch and follow-up with pediatric cardiology. Follow-up with pediatric Cardiology in March 2024 and there is plan for stress test and probably MRI. Rapid atrial fibrillation Status post cardioversion as per recommendation by pediatric cardiology [place] Currently in sinus rhythm. History of sinoatrial node dysfunction Continue home Coreg with holding parameters On Eliquis Will follow echo- echo reviewed by records coordinator Consult cardiology- appreciate input and recommendation Close monitoring telemetry Has been feeling better without any palpitation, chest pain or shortness of breath Heart rate is controlled no more evidence of RVR Denies any palpitations and/or chest pain Heart rate is controlled with current medications though the blood pressure remains on the lower side at systolic 90 GENA Baseline creatinine around 1 Today creatinine of 2.1 Possibly from nausea and vomiting Holding Lasix and lisinopril Follow repeat labs- creatinine has been improving Creatinine elevated to 2.59 with potassium at 5.4 which Diuretic has been on hold due to increasing. Patient's creatinine further went up to 3.13 as of today and potassium remains elevated at 5.4 Appreciate nephrology input and recommendation Still has volume overload and the deterioration of kidney function secondary to hypotension Started with intravenous Lasix 40 mg twice daily and monitor of ERP Hypoxia Requiring oxygen Chest x-ray seems okay History of respiratory requiring oxygen because of pulmonary edema he December 2023 He has been getting 3 L to maintain saturation Advised to keep the saturation more than 85% and wean off oxygen as much as possible to maintain that Oxygen is weaned off and has been saturating normally on room air Has been saturating normally on room air Fall Left knee laceration. Getting sutures in the ER CT head, CT cervical spine, unremarkable chest x-ray no acute findings Left knee CT scan. No acute fractures or dislocation. Anterior soft tissue edema with subcutaneous air related to soft tissue lacerations seen. Metallic foreign body in the lateral aspect distal femur stable in appearance PT OT when stable Pain control Empiric Rocephin for the laceration Will consult wound careawaiting wound care evaluation and further recommendation further care Awaiting wound care evaluation for the left knee laceration and the patient may need a knee brace and/or Ortho evaluation prior to discharge History of systolic CHF Will follow echo Holding Lasix for GENA Will stop any IV fluid and start Lasix 40 mg IV daily as per recommendation from records coordinator in [place] Received 1 dose of Lasix yesterday and none will be given today as per the car diologist Does not seems to be in volume overload Likely has fluid overload and will need more Lasix Nausea and vomiting For last couple of days Improving Will monitor Hyperkalemia Potassium 5.2 Holding lisinopril Follow repeat labs- will recheck PRP at 6 PM Potassium level has been 5.4 today we will monitor Cardiac cirrhosis Thrombocytopenia Total bilirubin 2.5, AST 22, ALT 14, alkaline phos is 84 Platelets 89 around baseline We will follow repeat labs Cardiology recommended follow-up with hepatology Congenital aortic valve insufficiency Tricuspid atresia Status post Fontan's procedure Follows with cardiology Significant ventricular dilatation on echo Plan for stress test and MRI as an outpatient Hypertension Continue Coreg with holding parameters Holding lisinopril and Lasix We will monitor Mood disorder On Zoloft and trazodone GERD On omeprazole DVT prophylaxis On Eliquis. Monitor for any bleeding Disposition Telemetry Full code. (2) GENA (acute kidney injury): (3) Status post Fontan procedure: (4) Congenital heart disease: (5) Laceration of knee, left: (6) Fall: Admission and Anticipated Discharge Date Admission Date: September 01, 2024 Subjective 09/01/2024 The patient was seen and examined in telemetry unit He was admitted with fall with left knee laceration and noted to have atrial fibrillation with RVR on admission Has significant heart surgery with Fontan's procedure He has been feeling much better since admission and denies any chest pain, palpitation or shortness of breath at rest 09/02/2024 Patient was seen and examined in telemetry unit He has been stable but complaining of pain in the left knee at the laceration site Received a dose of morphine earlier this morning and the blood pressure was low so metoprolol was on hold He will be given oxycodone to decrease the change in blood pressure Wants to go home he is 09/03/2024 The patient was seen and examined in telemetry unit Feels better but looks not any better Denies any chest pain and/or palpitation and the blood pressure remains around systolic 90 Still complains of pain in the left knee Review of Systems Review of Systems: all systems reviewed and are unremarkable except as noted below Physical Exam Physical Exam: Lying in bed without any acute distress Constitutional: well developed, well nourished, + ill appearing and + obese Eyes: PERRL, conjunctivae normal, anicteric sclerae ENMT: external ear and nose normal, oropharynx normal Neck: trachea midline, no thyromegaly Respiratory: no respiratory distress Auscultation: + diminished lung sounds and + crackles ( occasional crackles at the bases) Cardiovascular: Rate/Rhythm: + irregularly irregular Heart Sounds: normal S1, normal S2 and + murmur Extremities: + edema ( 1+ edema bilaterally) Gastrointestinal (Abdomen): Inspection/Auscultation: normal bowel sounds; abdomen not distended Percussion/Palpation: abdomen soft; abdomen nontender Musculoskeletal: Pain in the left knee which is bandaged right now Skin: Skin laceration left knee and awaiting wound care nurse evaluation Neurologic: normal touch/pain/proprioception and moves all extremities; no focal motor deficits Lymphatic: no cervical or axillary lymphadenopathy Results & Data Results & Data Vital Signs (Past 12 Hours) Vital Signs Temp Pulse Resp BP BP Pulse Ox O2 Del Method 09/03/24 12:09 36.4 C L 87 20 90/49 L 90 Room Air 09/03/24 11:57 Room Air 09/03/24 08:17 36.4 C L 94 H 20 90/57 L 90 Room Air 09/03/24 03:13 36.5 C 86 16 95/59 L 85 L Room Air Laboratory Results Short CBC 09/03/24 Range/Units 05:17 WBC 5.20 (4.8-10.8) K/ul Hgb 11.0 L (14.0-18.0) g/dl Hct 35.1 L (42.0-52.0) % Plt Count 70 L (130-400) K/uL BMP 09/03/24 05:17 Sodium 128 L Potassium 5.4 H Chloride 102 Carbon Dioxide 19 L BUN 57 H Creatinine 3.13 H D Glucose 87 Calcium 8.2 L Medications Administered Current Inpatient Medications Apixaban (Apixaban 5 Mg Tablet) 5 mg PO BID [facility] Stop: 10/01/24 08:59 Last Admin: 09/03/24 08:54 Dose: 5 mg Ceftriaxone Sodium (Rocephin) 2,000 mg in 50 mls @ 100 mls/hr IV Q24H [facility] Stop: 09/09/24 08:59 Last Infusion: 09/03/24 09:32 Dose: Infused Metoprolol Succinate (Metoprolol Succ 25mg Ext Rel Tab) 25 mg PO BID [facility] Stop: 10/01/24 20:59 Last Admin: 09/03/24 08:53 Dose: Not Given Montelukast Sodium (Montelukast Sodium 10 Mg Tablet) 10 mg PO DAILY [facility] Stop: 10/01/24 08:59 Last Admin: 09/03/24 08:55 Dose: 10 mg Nitroglycerin (Nitroglycerin Sl 0.4 Mg/Tab Tab) 0.4 mg SL Q5M PRN PRN Reason: Chest Pain Stop: 10/01/24 08:51 Oxycodone HCl (Oxycodone Hcl Ir 5 Mg Tab (Immediate Release)) 5 mg PO Q6H PRN PRN Reason: Pain Stop: 09/16/24 11:11 Last Admin: 09/03/24 08:57 Dose: 5 mg Pantoprazole Sodium (Pantoprazole 40 Mg Tab) 40 mg PO BID [facility] Stop: 10/01/24 08:59 Last Admin: 09/03/24 08:55 Dose: 40 mg Polyethylene Glycol (Polyethylene (Miralax) 17 Gm Pack) 17 gm PO DAILY PRN PRN Reason: Constipation Stop: 10/01/24 08:51 Sertraline HCl (Sertraline Hcl 100 Mg Tablet) 100 mg PO DAILY [facility] Stop: 10/01/24 08:59 Last Admin: 09/03/24 08:55 Dose: 100 mg Trazodone HCl (Trazodone Hcl 50 Mg Tab) 50 mg PO HS [facility] Stop: 10/01/24 20:59 Last Admin: 09/02/24 20:07 Dose: 50 mg
--- NOTE | 2024-09-03 16:15 | Electrocardiogram Report ---
Test Reason : Blood Pressure : */* mmHG Vent. Rate : 89 BPM Atrial Rate : 89 BPM P-R Int : 142 ms QRS Dur : 98 ms QT Int : 358 ms P-R-T Axes : 20 -20 -20 degrees QTcB Int : 435 ms Normal sinus rhythm Low voltage QRS Cannot rule out Anterior infarct (cited on or before 01-Sep-2024) Abnormal ECG When compared with ECG of 01-Sep-2024 11:45, Premature atrial complexes are no longer Present Questionable change in initial forces of Anterolateral leads Confirmed by Matt Patterson ([id number]) on 09/03/2024 4:15:20 PM Referred By: REFERRED SELF Confirmed By: Matt Patterson
--- NOTE | 2024-09-03 17:03 | Electrocardiogram Report ---
Test Reason : Blood Pressure : */* mmHG Vent. Rate : 87 BPM Atrial Rate : 87 BPM P-R Int : 144 ms QRS Dur : 98 ms QT Int : 328 ms P-R-T Axes : 6 -25 -20 degrees QTcB Int : 394 ms Normal sinus rhythm Low voltage QRS Cannot rule out Anterior infarct (cited on or before 01-Sep-2024) Abnormal ECG When compared with ECG of 02-Sep-2024 06:00, (unconfirmed) No significant change was found Confirmed by Matt Patterson [id number] on 09/03/2024 5:02:35 PM Referred By: REFERRED SELF Confirmed By: Matt Patterson
[2024-09-04 06:15] LABS: Anion Gap 8.0 (3-11); Calcium 8.0 mg/dl (8.6-10.3); Carbon Dioxide 17.0 mmol/L (21-32); Chloride 103.0 mmol/L (98-107); Magnesium 2.2 mg/dl (1.7-2.4); Potassium 5.2 mmol/L (3.5-5.1); Sodium 128.0 mmol/L (136-145)
[2024-09-04 06:21] LABS: Blood Urea Nitrogen 58.0 mg/dl (6-23); Creatinine Clr Calc Pharmacy 40.3 ml/min; Glucose 88.0 mg/dl (70-99(Fasting))
--- NOTE | 2024-09-04 11:38 | Nephrology Progress Note ---
Date of Service September 04, 2024 Assessment & Plan Admission and Anticipated Discharge Date Admission Date: September 01, 2024 Subjective Assessment & Plan (1) GENA (acute kidney injury): Acute kidney injury-ATN Christoph Joseph 2/ Hemodynamic instability 2/ AF w/RVR , Hypotension. Though his weight has remained the same, his sodium has dropped and he is acidotic and has Hyperkalemia.His EF has severly reduced EF and his baseline weight in unknown as he does not weigh himself. he has massive volume Overload. Continue to hold Lisinopril Creat continues to rise--with His cardiac Status and super low BP his chances of renal recovery is low. He might need CRRT for GENA/Volume overload but with Low BP. Discussed in detail with primary team, Drive Tester and also his mother by videochat. for now Give lasix 40 iv bid and midodrine 5 bid. But we all agreed that the best course of action is to transfer to tertiary center with Specialized care for Congenital heart Dz. also needs a center with CRRT capacity. total time spent 60 Mins (2) Atrial fibrillation with rapid ventricular response: In NSR now - Continue as Per cardiac recs. S--he looks and feels fine but has massive edema. BP is super low. Physical Exam Constitutional: WD/WN, vitals as above well developed and well nourished; no acute distress Eyes: PERRL, conjunctivae normal, anicteric sclerae Neck: trachea midline, no thyromegaly Respiratory: normal respiratory effort, lungs clear to auscultation Cardiovascular: Rate/Rhythm: regular rate and regular rhythm Vessels: no JVD and no carotid bruit Gastrointestinal (Abdomen): normal bowel sounds, soft, nontender, no hepatosplenomegaly Skin: no rashes, warm and dry Psychiatric: A+Ox3, euthymic affect Results & Data Vital Signs (Past 12 Hours) Vital Signs Temp Pulse Pulse Resp BP BP Pulse Ox 09/04/24 11:19 36.3 C L 75 21 89/55 L 90 09/04/24 08:17 36.4 C L 81 20 88/56 L 93 09/04/24 08:03 09/04/24 06:09 86 09/04/24 03:25 36.5 C 82 16 88/57 L 92 O2 Del Method O2 Flow Rate 09/04/24 11:19 Nasal Cannula 2 09/04/24 08:17 Nasal Cannula 2 09/04/24 08:03 Room Air 09/04/24 06:09 09/04/24 03:25 Nasal Cannula 2
--- NOTE | 2024-09-04 11:44 | Cardiology Progress Note ---
Date of Service September 04, 2024 Assessment & Plan (1) Atrial fibrillation with rapid ventricular response: (2) Congenital heart disease: (3) Status post Fontan procedure: (4) GENA (acute kidney injury): Plan 34-year-old male with complex congenital heart disease essentially single ventricle status post Fontan procedure with reduced LV function. Presented with atrial flutter with rapid ventricular response and underwent synchronized electrical cardioversion. He had manifested persistent hypotension. No further arrhythmias. Renal function has continued to decline since admission. Examination notable for significant volume overload. Impression: Significant volume overload in the setting of worsening renal insufficiency hypotension in patient with complex congenital heart disease. Would recommend transfer to tertiary facility. Discussion with primary hospitalist as well as nephrology made Admission and Anticipated Discharge Date Admission Date: September 01, 2024 Subjective Patient was seen and personally examined. Denies any specific complaints but relatively hypotensive. Renal function declining by laboratory studies. Did not receive any IV diuretics as to date. Has not been receiving beta- anoop due to hypotension. Review of Systems Review of Systems: All systems reviewed & are unremarkable except as noted in HPI & below Results & Data Vital Signs (Past 12 Hours) Vital Signs Temp Pulse Pulse Resp BP BP Pulse Ox 09/04/24 11:19 36.3 C L 75 21 89/55 L 90 09/04/24 08:17 36.4 C L 81 20 88/56 L 93 09/04/24 08:03 09/04/24 06:09 86 09/04/24 03:25 36.5 C 82 16 88/57 L 92 O2 Del Method O2 Flow Rate 09/04/24 11:19 Nasal Cannula 2 09/04/24 08:17 Nasal Cannula 2 09/04/24 08:03 Room Air 09/04/24 06:09 09/04/24 03:25 Nasal Cannula 2 Laboratory Results Laboratory Results - last 24 hr 09/04/24 05:39 Sodium 128 L Potassium 5.2 H Chloride 103 Carbon Dioxide 17 L Anion Gap 8 BUN 58 H Creatinine 3.35 H Est Cr Clr Drug Dosing 40.3 eGFR 23.59 BUN/Creatinine Ratio 17.3 Glucose 88 Calcium 8.0 L Phosphorus 5.7 H Magnesium 2.2 PG Care Time/CCT Total # of Minutes Spent Total Time Spent with Patient: Total time spent is greater than 50% in coordination of care (as documented) at patient's floor/unit and/or counseling patient: Coding Level of Care Code 81815 SUB INP/OBS CARE 3/50MIN Diagnoses Atrial fibrillation with rapid ventricular response I48.91 Congenital heart disease Q24.9 Status post Fontan procedure Z87.74 GENA (acute kidney injury) N17.9
[2024-09-04] MEDS: MIDODRINE HCL 2.5 MG TAB PO SCH (12:33)
[2024-09-04] MEDS: FUROSEMIDE 40 MG/4 ML VIAL IV SCH (12:35)
--- NOTE | 2024-09-04 12:53 | Hospitalist Progress Note ---
Date of Service September 04, 2024 Assessment & Plan (1) Rapid atrial fibrillation: Plan: 34-year-old male with past medical history significant for congenital aortic valve insufficiency, tricuspid atresia status post Fontan's procedure, liver disease after Fontan procedure, liver lesion, cardiac cirrhosis, mild intellectual disability, obesity, Sino atrial node dysfunction, history of systolic CHF, thrombocytopenia, mood disorder, a flutter lives at home with his mother presents with fall and found to have left knee laceration and also rapid A-fib. Patient had a fall accidentally after he tripped and fell going up the steps . Seems had a large amount of bleeding and family tried to place a dressing on. In triage patient found to have have tachycardia as well as hypoxia. EKG showed rapid A-fib. ER call his seafood preparer in [place] and was advised for cardioversion. Patient is status post cardioversion and currently in sinus rhythm. His labs showed GENA with creatinine of 2.1 and K of 5.2. Because of his abnormal labs [facility] cardiology advised for observation in the hospital. Patient is currently getting sutures to his left knee. For last couple of days patient was having nausea and vomiting and which is improving. As per his mother did not eating anything after 2 PM yesterday. Patient denies any dizziness or chest pain or palpitations prior to fall. No shortness of breath. No cough. No fevers. No diarrhea. No abdominal pain. No fevers. Currently resting comfortably. Patient in December 2023 was transferred to [facility] from outside hospital for acute hypoxemic respiratory failure. He was noted to be in a flutter with heart rates in 220s. He was cardioverted with 100 J. He required oxygen 4 L. Echo showed EF of 50% but poor windows. At that time his total bilirubin was 5. Chest x-ray showed pulm edema. Patient was treated with IV diuresis at that time and was transferred for [place] for evaluation by pediatric cardiology. As per the [facility] notes patient seems to be out with friends in [place] when some of his friends noticed his lips were blue. Patient also started to have palpitations which prompted him to go to the ER. Upon transfer to [place] he was was saturating okay on 3 L and heart rates were okay. At [place] received IV diuresis and was seen by peds cardiology, EP and hepatology due to his complex history of tricuspid atresia status post Fontan procedure with cardiac cirrhosis sequelae. At [place] did not had any more atrial flutter or A-fib. His thoracic echo was done to evaluate Fontan pathway but it was of suboptimal and was thought that he needed congenital cardiac MRI done as outpatient. Also asked for sleep apnea referral and was discharged on Eliquis. Since he was starting Eliquis, aspirin was stopped. His Lasix was increased from 20 to 40 mg daily. And was also started on Coreg. Advised for Zio patch and follow-up with pediatric cardiology. Follow-up with pediatric Cardiology in March 2024 and there is plan for stress test and probably MRI. Rapid atrial fibrillation Status post cardioversion as per recommendation by pediatric cardiology [place] Currently in sinus rhythm. History of sinoatrial node dysfunction Continue home Coreg with holding parameters On Eliquis Will follow echo- echo reviewed by seafood preparer Consult cardiology- appreciate input and recommendation Close monitoring telemetry Has been feeling better without any palpitation, chest pain or shortness of breath Heart rate is controlled no more evidence of RVR Denies any palpitations and/or chest pain Heart rate is controlled with current medications though the blood pressure remains on the lower side at systolic 90 Systolic blood pressure is going down to 70s at times and requiring IV fluid boluses to maintain the blood pressure Heart rate is controlled at 75/min and occasional doses of beta-anoop was on hold due to low blood pressure GENA Baseline creatinine around 1 Today creatinine of 2.1 Possibly from nausea and vomiting Holding Lasix and lisinopril Follow repeat labs- creatinine has been improving Creatinine elevated to 2.59 with potassium at 5.4 which Diuretic has been on hold due to increasing. Patient's creatinine further went up to 3.13 as of today and potassium remains elevated at 5.4 Appreciate nephrology input and recommendation Still has volume overload and the deterioration of kidney function secondary to hypotension Started with intravenous Lasix 40 mg twice daily and monitor of prp Kidney function is worse today with increasing BUN and creatinine at 58 over/3.35 which are normal before admission Nephrology service recommended for transfer as because the patient has significant fluid overload and we cannot give more Lasix without compromising blood pressure and he may need CRRT Hypoxia Requiring oxygen Chest x-ray seems okay History of respiratory requiring oxygen because of pulmonary edema he December 2023 He has been getting 3 L to maintain saturation Advised to keep the saturation more than 85% and wean off oxygen as much as possible to maintain that Oxygen is weaned off and has been saturating normally on room air Has been saturating normally on room air He has been requiring 2 L to maintain saturation Fall Left knee laceration. Getting sutures in the ER CT head, CT cervical spine, unremarkable chest x-ray no acute findings Left knee CT scan. No acute fractures or dislocation. Anterior soft tissue edema with subcutaneous air related to soft tissue lacerations seen. Metallic foreign body in the lateral aspect distal femur stable in appearance PT OT when stable Pain control Empiric Rocephin for the laceration Will consult wound careawaiting wound care evaluation and further recommendation further care Awaiting wound care evaluation for the left knee laceration and the patient may need a knee brace and/or Ortho evaluation prior to discharge He has been getting Rocephin for the laceration of the left knee History of systolic CHF Will follow echo Holding Lasix for GENA Will stop any IV fluid and start Lasix 40 mg IV daily as per recommendation from seafood preparer in [place] Received 1 dose of Lasix yesterday and none will be given today as per the seafood preparer Does not seems to be in volume overload Likely has fluid overload and will need more Lasix Received 40 mg IV Lasix 2 times daily yesterday with output of about 700 mL for the last 24 hours Nausea and vomiting For last couple of days Improving Will monitor Hyperkalemia Potassium 5.2 Holding lisinopril Follow repeat labs- will recheck PRP at 6 PM Potassium level has been 5.4 today we will monitor Cardiac cirrhosis Thrombocytopenia Total bilirubin 2.5, AST 22, ALT 14, alkaline phos is 84 Platelets 89 around baseline We will follow repeat labs Cardiology recommended follow-up with hepatology Congenital aortic valve insufficiency Tricuspid atresia Status post Fontan's procedure Follows with cardiology Significant ventricular dilatation on echo Plan for stress test and MRI as an outpatient Hypertension Continue Coreg with holding parameters Holding lisinopril and Lasix We will monitor Mood disorder On Zoloft and trazodone GERD On omeprazole DVT prophylaxis On Eliquis. Monitor for any bleeding Disposition Telemetry Full code. Discussed with the allergist/pediatric pulmonologist on-call in [place] and the patient will be transferred to [place] for continuation of care Discussed with the patient and also his mom about the transfer to [place] this afternoon (2) GENA (acute kidney injury): (3) Status post Fontan procedure: (4) Congenital heart disease: (5) Laceration of knee, left: (6) Fall: Admission and Anticipated Discharge Date Admission Date: September 01, 2024 Subjective 09/01/2024 The patient was seen and examined in telemetry unit He was admitted with fall with left knee laceration and noted to have atrial fibrillation with RVR on admission Has significant heart surgery with Fontan's procedure He has been feeling much better since admission and denies any chest pain, palpitation or shortness of breath at rest 09/02/2024 Patient was seen and examined in telemetry unit He has been stable but complaining of pain in the left knee at the laceration site Received a dose of morphine earlier this morning and the blood pressure was low so metoprolol was on hold He will be given oxycodone to decrease the change in blood pressure Wants to go home he is 09/03/2024 The patient was seen and examined in telemetry unit Feels better but looks not any better Denies any chest pain and/or palpitation and the blood pressure remains around systolic 90 Still complains of pain in the left knee 09/04/2024 The patient was seen and examined in telemetry unit He has been stable and has been requiring 2 L to maintain saturation Does not have any acute distress, any chest pain and/or palpitations Review of Systems Review of Systems: all systems reviewed and are unremarkable except as noted below Physical Exam Physical Exam: Lying in bed without any acute distress Constitutional: well developed, well nourished, + ill appearing and + obese Eyes: PERRL, conjunctivae normal, anicteric sclerae ENMT: external ear and nose normal, oropharynx normal Neck: trachea midline, no thyromegaly Respiratory: no respiratory distress Auscultation: + diminished lung sounds and + crackles ( occasional crackles at the bases) Cardiovascular: Rate/Rhythm: + irregularly irregular Heart Sounds: normal S1, normal S2 and + murmur Extremities: + edema ( 1+ edema bilaterally) Gastrointestinal (Abdomen): Inspection/Auscultation: normal bowel sounds; abdomen not distended Percussion/Palpation: abdomen soft; abdomen nontender Musculoskeletal: left knee is bandaged Neurologic: normal touch/pain/proprioception and moves all extremities; no focal motor deficits Lymphatic: no cervical or axillary lymphadenopathy Results & Data Results & Data Vital Signs (Past 12 Hours) Vital Signs Temp Pulse Pulse Resp BP BP Pulse Ox 09/04/24 11:19 36.3 C L 75 21 89/55 L 90 09/04/24 08:17 36.4 C L 81 20 88/56 L 93 09/04/24 08:03 09/04/24 06:09 86 09/04/24 03:25 36.5 C 82 16 88/57 L 92 O2 Del Method O2 Flow Rate 09/04/24 11:19 Nasal Cannula 2 09/04/24 08:17 Nasal Cannula 2 09/04/24 08:03 Room Air 09/04/24 06:09 09/04/24 03:25 Nasal Cannula 2 Laboratory Results BMP 09/04/24 05:39 Sodium 128 L Potassium 5.2 H Chloride 103 Carbon Dioxide 17 L BUN 58 H Creatinine 3.35 H Glucose 88 Calcium 8.0 L Medications Administered Current Inpatient Medications Apixaban (Apixaban 5 Mg Tablet) 5 mg PO BID BORIS Stop: 10/01/24 08:59 Last Admin: 09/04/24 08:24 Dose: 5 mg Furosemide (Furosemide 40 Mg/4 Ml Vial) 40 mg IV BID BORIS Stop: 10/04/24 11:44 Last Admin: 09/04/24 12:35 Dose: 40 mg Ceftriaxone Sodium (Rocephin) 2,000 mg in 50 mls @ 100 mls/hr IV Q24H BORIS Stop: 09/09/24 08:59 Last Infusion: 09/04/24 09:42 Dose: Infused Metoprolol Succinate (Metoprolol Succ 25mg Ext Rel Tab) 25 mg PO BID BORIS Stop: 10/01/24 20:59 Last Admin: 09/04/24 08:42 Dose: 25 mg Midodrine (Midodrine Hcl 2.5 Mg Tab) 5 mg PO BID BORIS Stop: 10/04/24 11:44 Last Admin: 09/04/24 12:33 Dose: 5 mg Montelukast Sodium (Montelukast Sodium 10 Mg Tablet) 10 mg PO DAILY BORIS Stop: 10/01/24 08:59 Last Admin: 09/04/24 08:24 Dose: 10 mg Nitroglycerin (Nitroglycerin Sl 0.4 Mg/Tab Tab) 0.4 mg SL Q5M PRN PRN Reason: Chest Pain Stop: 10/01/24 08:51 Oxycodone HCl (Oxycodone Hcl Ir 5 Mg Tab (Immediate Release)) 5 mg PO Q6H PRN PRN Reason: Pain Stop: 09/16/24 11:11 Last Admin: 09/04/24 08:42 Dose: 5 mg Pantoprazole Sodium (Pantoprazole 40 Mg Tab) 40 mg PO BID BORIS Stop: 10/01/24 08:59 Last Admin: 09/04/24 08:24 Dose: 40 mg Polyethylene Glycol (Polyethylene (Miralax) 17 Gm Pack) 17 gm PO DAILY PRN PRN Reason: Constipation Stop: 10/01/24 08:51 Sertraline HCl (Sertraline Hcl 100 Mg Tablet) 100 mg PO DAILY BORIS Stop: 10/01/24 08:59 Last Admin: 09/04/24 08:24 Dose: 100 mg Trazodone HCl (Trazodone Hcl 50 Mg Tab) 50 mg PO HS BORIS Stop: 10/01/24 20:59 Last Admin: 09/03/24 20:18 Dose: 50 mg
--- NOTE | 2024-09-04 13:01 | Discharge Summary ---
Date of Service September 04, 2024 Admission HPI Per Admitting Provider 34-year-old male with past medical history significant for congenital aortic valve insufficiency, tricuspid atresia status post Fontan's procedure, liver disease after Fontan procedure, liver lesion, cardiac cirrhosis, mild intellectual disability, obesity, Sino atrial node dysfunction, history of systolic CHF, thrombocytopenia, mood disorder, a flutter lives at home with his mother presents with fall and found to have left knee laceration and also rapid A-fib. Patient had a fall accidentally after he tripped and fell going up the steps . Seems had a large amount of bleeding and family tried to place a dressing on. In triage patient found to have have tachycardia as well as hypoxia. EKG showed rapid A-fib. ER call his cardiac nurse practitioner in [place] and was advised for cardioversion. Patient is status post cardioversion and currently in sinus rhythm. His labs showed GENA with creatinine of 2.1 and K of 5.2. Because of his abnormal labs [facility] cardiology advised for observation in the hospital. Patient is currently getting sutures to his left knee. For last couple of days patient was having nausea and vomiting and which is improving. As per his mother did not eating anything after 2 PM yesterday. Patient denies any dizziness or chest pain or palpitations prior to fall. No shortness of breath. No cough. No fevers. No diarrhea. No abdominal pain. No fevers. Currently resting comfortably. Patient in December 2023 was transferred to [facility] from outside hospital for acute hypoxemic respiratory failure. He was noted to be in a flutter with heart rates in 220s. He was cardioverted with 100 J. He required oxygen 4 L. Echo showed EF of 50% but poor windows. At that time his total bilirubin was 5. Chest x-ray showed pulm edema. Patient was treated with IV diuresis at that time and was transferred for [place] for evaluation by pediatric cardiology. As per the [facility] notes patient seems to be out with friends in [place] when some of his friends noticed his lips were blue. Patient also started to have palpitations which prompted him to go to the ER. Upon transfer to [place] he was was saturating okay on 3 L and heart rates were okay. At [place] received IV diuresis and was seen by peds cardiology, EP and hepatology due to his complex history of tricuspid atresia status post Fontan procedure with cardiac cirrhosis sequelae. At [place] did not had any more atrial flutter or A-fib. His thoracic echo was done to evaluate Fontan pathway but it was of suboptimal and was thought that he needed congenital cardiac MRI done as outpatient. Also asked for sleep apnea referral and was discharged on Eliquis. Since he was starting Eliquis, aspirin was stopped. His Lasix was increased from 20 to 40 mg daily. And was also started on Coreg. Advised for Zio patch and follow-up with pediatric cardiology. Follow-up with pediatric Cardiology in March 2024 and there is plan for stress test and probably MRI. Past medical history. As mentioned above Past surgical history. Circumcision., And right and left heart cath in 2013. EGD. Left knee arthroscopy. Rocky Fontan procedure in 1992. Social history. No smoking. No alcohol currently as per epic. No drug use. Family history. No family history on file. Admission Exam Per Admitting Provider Physical Exam: General- Not in acute distress Head- atraumatic Eyes- PERRL. ENT- oropharynx clear Neck- supple, no JVD. Lungs- clear to auscultation no wheezing or crackles Heart- regular rate and rhythm; no murmur, no gallop. Abdomen- normal bowel sounds, soft, nontender, no distension Extremities- b/l lower extremity edema present . Left knee deep laceration seen Neuro- alert, oriented PERRL, no facial palsy; no dysarthria; Principal Diagnosis A-fib with RVR, GENA with fluid overload, congenital heart disease status post Fontan procedure, left knee laceration status post fall Discharge Exam Lying in bed without any acute distress Constitutional well developed, well nourished, + ill appearing and + obese Eyes PERRL, conjunctivae normal, anicteric sclerae ENMT external ear and nose normal, oropharynx normal Neck trachea midline, no thyromegaly Respiratory no respiratory distress Auscultation: + diminished lung sounds and + crackles ( occasional crackles at the bases) Cardiovascular Rate/Rhythm: + irregularly irregular Heart Sounds: normal S1, normal S2 and + murmur Extremities: + edema ( 1+ edema bilaterally) Gastrointestinal (Abdomen) Inspection/Auscultation: normal bowel sounds; abdomen not distended Percussion/Palpation: abdomen soft; abdomen nontender Neurologic normal touch/pain/proprioception and moves all extremities; no focal motor deficits Lymphatic no cervical or axillary lymphadenopathy Discharge Data Allergies Allergy/AdvReac Type Severity Reaction Status Date / Time acetaminophen AdvReac Unknown AVOIDS D/T Verified 09/01/24 02:23 CIRRHOSIS OF LIVER Consultations 09/01/24 07:53 ED Decision to Admit Stat 09/01/24 08:52 Consult Cardiology Routine 09/03/24 11:42 Consult Nephrology Routine Ordered Studies 09/01/24 02:08 CT knee LT wo con Stat 09/01/24 05:50 CT cervical spine wo con Stat CT head/brain wo con Stat Hospital Course (1) Rapid atrial fibrillation: 34-year-old male with past medical history significant for congenital aortic valve insufficiency, tricuspid atresia status post Fontan's procedure, liver disease after Fontan procedure, liver lesion, cardiac cirrhosis, mild intellectual disability, obesity, Sino atrial node dysfunction, history of systolic CHF, thrombocytopenia, mood disorder, a flutter lives at home with his mother presents with fall and found to have left knee laceration and also rapid A-fib. Patient had a fall accidentally after he tripped and fell going up the steps . Seems had a large amount of bleeding and family tried to place a dressing on. In triage patient found to have have tachycardia as well as hypoxia. EKG showed rapid A-fib. ER call his cardiac nurse practitioner in [place] and was advised for cardioversion. Patient is status post cardioversion and currently in sinus rhythm. His labs showed GENA with creatinine of 2.1 and K of 5.2. Because of his abnormal labs [facility] cardiology advised for observation in the hospital. Patient is currently getting sutures to his left knee. For last couple of days patient was having nausea and vomiting and which is improving. As per his mother did not eating anything after 2 PM yesterday. Patient denies any dizziness or chest pain or palpitations prior to fall. No shortness of breath. No cough. No fevers. No diarrhea. No abdominal pain. No fevers. Currently resting comfortably. Patient in December 2023 was transferred to [facility] from outside hospital for acute hypoxemic respiratory failure. He was noted to be in a flutter with heart rates in 220s. He was cardioverted with 100 J. He required oxygen 4 L. Echo showed EF of 50% but poor windows. At that time his total bilirubin was 5. Chest x-ray showed pulm edema. Patient was treated with IV diuresis at that time and was transferred for [place] for evaluation by pediatric cardiology. As per the [facility] notes patient seems to be out with friends in [place] when some of his friends noticed his lips were blue. Patient also started to have palpitations which prompted him to go to the ER. Upon transfer to [place] he was was saturating okay on 3 L and heart rates were okay. At [place] received IV diuresis and was seen by peds cardiology, EP and hepatology due to his complex history of tricuspid atresia status post Fontan procedure with cardiac cirrhosis sequelae. At [place] did not had any more atrial flutter or A-fib. His thoracic echo was done to evaluate Fontan pathway but it was of suboptimal and was thought that he needed congenital cardiac MRI done as outpatient. Also asked for sleep apnea referral and was discharged on Eliquis. Since he was starting Eliquis, aspirin was stopped. His Lasix was increased from 20 to 40 mg daily. And was also started on Coreg. Advised for Zio patch and follow-up with pediatric cardiology. Follow-up with pediatric Cardiology in March 2024 and there is plan for stress test and probably MRI. Rapid atrial fibrillation Status post cardioversion as per recommendation by pediatric cardiology [place] Currently in sinus rhythm. History of sinoatrial node dysfunction Continue home Coreg with holding parameters On Eliquis Will follow echo- echo reviewed by cardiac nurse practitioner Consult cardiology- appreciate input and recommendation Close monitoring telemetry Has been feeling better without any palpitation, chest pain or shortness of breath Heart rate is controlled no more evidence of RVR Denies any palpitations and/or chest pain Heart rate is controlled with current medications though the blood pressure remains on the lower side at systolic 90 Systolic blood pressure is going down to 70s at times and requiring IV fluid boluses to maintain the blood pressure Heart rate is controlled at 75/min and occasional doses of beta-anoop was on hold due to low blood pressure GENA Baseline creatinine around 1 Today creatinine of 2.1 Possibly from nausea and vomiting Holding Lasix and lisinopril Follow repeat labs- creatinine has been improving Creatinine elevated to 2.59 with potassium at 5.4 which Diuretic has been on hold due to increasing. Patient's creatinine further went up to 3.13 as of today and potassium remains elevated at 5.4 Appreciate nephrology input and recommendation Still has volume overload and the deterioration of kidney function secondary to hypotension Started with intravenous Lasix 40 mg twice daily and monitor of prp Kidney function is worse today with increasing BUN and creatinine at 58 over/3.35 which are normal before admission Nephrology service recommended for transfer as because the patient has significant fluid overload and we cannot give more Lasix without compromising blood pressure and he may need CRRT Hypoxia Requiring oxygen Chest x-ray seems okay History of respiratory requiring oxygen because of pulmonary edema he December 2023 He has been getting 3 L to maintain saturation Advised to keep the saturation more than 85% and wean off oxygen as much as possible to maintain that Oxygen is weaned off and has been saturating normally on room air Has been saturating normally on room air He has been requiring 2 L to maintain saturation Fall Left knee laceration. Getting sutures in the ER CT head, CT cervical spine, unremarkable chest x-ray no acute findings Left knee CT scan. No acute fractures or dislocation. Anterior soft tissue edema with subcutaneous air related to soft tissue lacerations seen. Metallic foreign body in the lateral aspect distal femur stable in appearance PT OT when stable Pain control Empiric Rocephin for the laceration Will consult wound careawaiting wound care evaluation and further recommendation further care Awaiting wound care evaluation for the left knee laceration and the patient may need a knee brace and/or Ortho evaluation prior to discharge He has been getting Rocephin for the laceration of the left knee History of systolic CHF Will follow echo Holding Lasix for GENA Will stop any IV fluid and start Lasix 40 mg IV daily as per recommendation from cardiac nurse practitioner in [place] Received 1 dose of Lasix yesterday and none will be given today as per the cardiac nurse practitioner Does not seems to be in volume overload Likely has fluid overload and will need more Lasix Received 40 mg IV Lasix 2 times daily yesterday with output of about 700 mL for the last 24 hours Nausea and vomiting For last couple of days Improving Will monitor Hyperkalemia Potassium 5.2 Holding lisinopril Follow repeat labs- will recheck PRP at 6 PM Potassium level has been 5.4 today we will monitor Cardiac cirrhosis Thrombocytopenia Total bilirubin 2.5, AST 22, ALT 14, alkaline phos is 84 Platelets 89 around baseline We will follow repeat labs Cardiology recommended follow-up with hepatology Congenital aortic valve insufficiency Tricuspid atresia Status post Fontan's procedure Follows with cardiology Significant ventricular dilatation on echo Plan for stress test and MRI as an outpatient Hypertension Continue Coreg with holding parameters Holding lisinopril and Lasix We will monitor Mood disorder On Zoloft and trazodone GERD On omeprazole DVT prophylaxis On Eliquis. Monitor for any bleeding Disposition Telemetry Full code. Discussed with the manager life on-call in [place] and the patient will be transferred to [place] for continuation of care Discussed with the patient and also his mom about the transfer to [place] this afternoon (2) GENA (acute kidney injury): (3) Status post Fontan procedure: (4) Congenital heart disease: (5) Laceration of knee, left: (6) Fall: Total Time Total Time Spent Total Time Spent (In Minutes): 40 minutes Discharge Plan Discharge Items Patient Disposition: Transfer Acute Care Hospital Reason For Visit: RAPID A FIB, GENA, LEFT KNEE LACERATION Discharge Diagnosis: A-fib with RVR, GENA with fluid overload, congenital heart disease status post Fontan procedure, left knee laceration status post fall Condition on Discharge: Fair Activity: Resume your previous activity Non-emergency contact: Primary Care Provider Call non-emergency contact if: you have any medication questions and your symptoms worsen Follow-up/Referrals: Beryl Thomson PA-C [Primary Care Provider] - Diet: Heart Healthy Addtl Attending Provider Instructions: current inpatient medications were continued as follow: Current Inpatient Medications Apixaban (Apixaban 5 Mg Tablet) 5 mg PO BID BORIS Stop: 10/01/24 08:59 Last Admin: 09/04/24 08:24 Dose: 5 mg Furosemide (Furosemide 40 Mg/4 Ml Vial) 40 mg IV BID BORIS Stop: 10/04/24 11:44 Last Admin: 09/04/24 12:35 Dose: 40 mg Ceftriaxone Sodium (Rocephin) 2,000 mg in 50 mls @ 100 mls/hr IV Q24H BORIS Stop: 09/09/24 08:59 Last Infusion: 09/04/24 09:42 Dose: Infused Metoprolol Succinate (Metoprolol Succ 25mg Ext Rel Tab) 25 mg PO BID BORIS Stop: 10/01/24 20:59 Last Admin: 09/04/24 08:42 Dose: 25 mg Midodrine (Midodrine Hcl 2.5 Mg Tab) 5 mg PO BID BORIS Stop: 10/04/24 11:44 Last Admin: 09/04/24 12:33 Dose: 5 mg Montelukast Sodium (Montelukast Sodium 10 Mg Tablet) 10 mg PO DAILY BORIS Stop: 10/01/24 08:59 Last Admin: 09/04/24 08:24 Dose: 10 mg Nitroglycerin (Nitroglycerin Sl 0.4 Mg/Tab Tab) 0.4 mg SL Q5M PRN PRN Reason: Chest Pain Stop: 10/01/24 08:51 Oxycodone HCl (Oxycodone Hcl Ir 5 Mg Tab (Immediate Release)) 5 mg PO Q6H PRN PRN Reason: Pain Stop: 09/16/24 11:11 Last Admin: 09/04/24 08:42 Dose: 5 mg Pantoprazole Sodium (Pantoprazole 40 Mg Tab) 40 mg PO BID BORIS Stop: 10/01/24 08:59 Last Admin: 09/04/24 08:24 Dose: 40 mg Polyethylene Glycol (Polyethylene (Miralax) 17 Gm Pack) 17 gm PO DAILY PRN PRN Reason: Constipation Stop: 10/01/24 08:51 Sertraline HCl (Sertraline Hcl 100 Mg Tablet) 100 mg PO DAILY BORIS Stop: 10/01/24 08:59 Last Admin: 09/04/24 08:24 Dose: 100 mg Trazodone HCl (Trazodone Hcl 50 Mg Tab) 50 mg PO HS BORSI Stop: 10/01/24 20:59 Last Admin: 09/03/24 20:18 Dose: 50 mg Pending Studies at Discharge: No Stand-Alone Forms: [facility] Skilled Items Patient informed of condition?: Yes DNR: No Discharge Level of Care: Other Communicable Disease: No Discharge Prognosis: Stable Lines: Peripheral IV Urinary Catheter: No Medications and DC Order Prescriptions: Continued furosemide 40 mg tablet 40 mg PO DAILY trazodone 50 mg tablet 50 mg PO HS sertraline 100 mg tablet 100 mg PO DAILY betamethasone dipropionate 0.05 % cream 1 applic TOPICAL DIRECTED omeprazole 20 mg capsule,delayed release(DR/EC) 20 mg PO BID Rx Instructions: 30 MINUTES PRIOR TO MEALS montelukast 10 mg tablet 10 mg PO DAILY Eliquis 5 mg tablet 5 mg PO BID carvedilol 6.25 mg tablet 6.25 mg PO BID lisinopril 20 mg tablet 20 mg PO DAILY Discharge Orders: Discharge Order (Routine); Ordered 09/04/24 Ordered By: Greta Alonzo Admission Data Admit Date/Time: 09/01/24 07:06 Attending Provider: Greta Alonzo Admit Provider: Marcell Aiken Primary Care Provider: Beryl Thomson Other Providers: Marcell Aiken; Naresh Miller; Florinda Crenshaw; Sukumar Mccoy; Maikel Claros; Stanley Garrido; Letitia Lares
== END 2024-09-04 20:00 | disposition short-term general hospital (02) | DRG 309 ==
LOC: ED 00:44 → 4W 07:06